=== PATIENT | female | born 1975 | race Caucasian/White ===

== ENCOUNTER → 2024-06-26 07:30 | Outpatient (REF) | payer MEDICAID, SELFPAY ==
[2024-06-26 09:07] LABS: Absolute Neutrophil Count 5.4 X10^3/uL (2.0-7.7); Basophil# 0.05 X10^3/uL; Basophil% 0.7 % (0-1); Eosinophils% 4.1 % (0-5); Hematocrit 41.3 % (37-47); Hemoglobin 11.9 g/dL (12.0-15.0); Lymphocyte % 9.5 % (19-41); Mean Corp Hgb Conc 28.8 g/dL (32-36); Mean Corpuscular Hgb 27.9 pg (27.0-32.0); Mean Corpuscular Volume 96.9 fL (81-99); Mean Platelet Vol. 11.6 fl (6.2-12.0); Monocyte# 0.82 X10^3/uL; Monocyte% 11.2 % (0-10); NRBC Flagged by Analyzer 0 % (0-5); Neutrophil % 73.7 % (47-70); POSITIVE MORPHOLOGY YES; Platelet Count 230 K/mm3 (150-450); RBC Distribution Width CV 20.2 % (11.6-14.6); RBC Distribution Width SD 71.2 fl (35.1-43.9); Red Blood Count 4.26 M/mm3 (4.2-5.4); White Blood Count 7.3 K/mm3 (4.4-11.0)
[2024-06-26 09:08] LABS: Differential Indicated SCAN CRITERIA MET
[2024-06-26 09:50] LABS: Anisocytosis 2+; Stomatocyte 1+
[2024-06-26 09:58] LABS: Anion Gap 4 (5-15); BUN 15 mg/dL (7-18); BUN/Creat Ratio 24.2 RATIO (10-20); Calcium,Total 8.9 mg/dL (8.5-10.1); Chloride 92 mmol/L (98-107); Creatinine, Serum 0.62 mg/dL (0.55-1.02); EST Glomerular Filtration Rate 108 mL/min (>60); Est Glom Filt Rate - Afr Amer 130 mL/min (>60); Glucose 105 mg/dL (74-106); Magnesium 2.3 mg/dL (1.6-2.6); Sodium Level 137 mmol/L (136-145)
[2024-06-26 11:10] LABS: Vitamin B12 399 pg/mL (211-911); Vitamin D,25 Hydroxy 10.1 ng/mL
== END ==
LOC: OLS.SW 07:30
PROVIDERS: Visit Provider Internal Medicine
DX: Z02.0 Encounter for examination for admission to educational institution (principal)
CPT/HCPCS: 36415; 80048; 82306; 82607; 83735; 84443; 85025

== ENCOUNTER 2024-07-02 12:34 | Inpatient (IN) | payer MEDICAID, SELFPAY ==
[2024-07-02] VITALS (17 sets, daily range): BP systolic 96–132; BP diastolic 57–88; PULSE 78–107; RESP 10–26; TEMP 36.4–37.2; O2SAT 40–100; BMI 85.8; BMI 80.2
--- NOTE | 2024-07-02 12:45 | EKG12_ITS ---
Test Reason : Blood Pressure : */* mmHG Vent. Rate : 105 BPM Atrial Rate : 105 BPM P-R Int : 150 ms QRS Dur : 96 ms QT Int : 366 ms P-R-T Axes : 49 35 37 degrees QTcB Int : 483 ms Sinus tachycardia Otherwise normal ECG No previous ECGs available Confirmed by James Larkin ([id number]), book editor RONI FLORES ([id number]) on 07/03/2024 10:45:36 AM Referred By: JANIS Confirmed By: James Larkin
--- NOTE | 2024-07-02 12:54 | EDS_ITS ---
HPI History of Present Illness Chief Complaint: Shortness of Breath Narrative Narrative: Patient is a 49-year-old female past medical history BMI of 85.9, generalized weakness in a rehab facility currently who presents to the emerged part with a chief complaint of hypoxia. According to paperwork from the facility she is on as needed oxygen 2 to 5 L as needed. Patient states that for the past 3 days she has had increased difficulty with breathing and not feeling well. Patient denies any sick contacts. According to the patient's family member at bedside she had a mask on yesterday and had difficulty understanding her. According to EMS when they arrived she was 40% therefore she was placed on nonrebreather. PFSH PFSH Home Medications ?Medication ?Instructions ?Recorded ?Last Taken ?Type acetaminophen 325 mg capsule 650 mg PO Q4H PRN fever 07/02/24 Unknown History acetaminophen 650 mg rectal 650 mg DE Q4H 07/02/24 Unknown History suppository albuterol sulfate 2.5 mg/3 mL 2.5 mg inhalation Q4H PRN 07/02/24 Unknown History (0.083 %) solution for nebulization shortness of breath or wheezing aluminum-magnesium hydroxide 200 30 ml PO Q4H PRN GI DISTRESS 07/02/24 Unknown History mg-200 mg/5 mL oral suspension (MAG-AL) bisacodyl 10 mg rectal suppository 10 mg DE DAILY PRN constipation 07/02/24 Unknown History dextromethorphan-guaifenesin 10 5 ml PO Q6H PRN cough 07/02/24 Unknown History mg-100 mg/5 mL oral liquid (Biocotron) guaifenesin 100 mg/5 mL oral 200 mg PO Q4H PRN congestion 07/02/24 Unknown History liquid (Adult Tussin Chest Congestion) miconazole nitrate 2 % topical 1 applic topical DAILY 07/02/24 Unknown History powder (Antifungal (miconazole)) sodium phosphates 19 gram-7 118 ml DE DAILY PRN constipation 07/02/24 Unknown History gram/118 mL enema (Enema) Allergy/AdvReac Type Severity Reaction Status Date / Time No Known Allergies Allergy Verified 07/02/24 12:35 Social History Smoking Status: Never smoker ROS ROS ED ROS Narrative Constitutional: Denies any fevers, chills, headaches malaise, dizziness Eyes: Denies change vision double vision blurry vision Cardiovascular: Denies chest pain or palpitations Respiratory: Complains of shortness of breath and difficulty breathing Abdomen: Denies abdominal pain, nausea, vomiting, diarrhea : Denies any urinary symptoms Neurological: Denies any numbness, wheeze, tingling Skin: Denies any rashes or lesions EXAM Physical Exam Narrative Exam Narrative: General: Patient was lying in bed rest comfortably did not appear to be acute distress Head: Atraumatic, normocephalic Eyes: PERRL body, EOMI bilateral no conjunctival injection noted Neck: Soft, supple, trachea midline Cardiovascular: Patient tachycardic with regular rhythm no murmurs gallops rubs noted Respiratory: Clear to auscultation bilaterally Abdomen: Soft, nontender to palpation Extremities: +4/5 strength noted in the bilateral upper and lower extremities Neurological: Patient following commands knew that she was at [facility] year is 2023 Skin: Warm, dry, intact, chronic skin changes noted in the bilateral lower extremities Const Vital Signs: 07/02/24 12:35 07/02/24 12:41 07/02/24 12:42 Temperature 97.6 F L 97.6 F L Temperature Source Axillary Axillary Pulse Rate 107 H 107 H Respiratory Rate 10 L 19 H Respiratory Effort Short of Breath Labored Respiratory Depth Shallow Respiratory Pattern Normal Blood Pressure 132/81 H 113/80 Blood Pressure Mean 98 91 Pulse Ox 100 91 Oxygen Delivery Method Non-Rebreather Nasal Cannula Room Air Oxygen Flow Rate (L/min) 3 07/02/24 12:45 07/02/24 13:35 07/02/24 13:41 Temperature 97.9 F Temperature Source Axillary Pulse Rate 96 95 Respiratory Rate 17 21 H Respiratory Effort Respiratory Depth Respiratory Pattern Blood Pressure 102/88 H 125/58 H Blood Pressure Mean 92 80 Pulse Ox 96 94 Oxygen Delivery Method Nasal Cannula Nasal Cannula Nasal Cannula Oxygen Flow Rate (L/min) 3 3 07/02/24 14:00 07/02/24 14:28 Temperature 97.9 F Temperature Source Pulse Rate 96 96 Respiratory Rate 18 18 Respiratory Effort Respiratory Depth Respiratory Pattern Blood Pressure 116/65 116/65 Blood Pressure Mean 82 82 Pulse Ox 93 93 Oxygen Delivery Method Nasal Cannula Oxygen Flow Rate (L/min) MDM MDM MDM Narrative Medical decision making narrative: Patient is a 49-year-old female who presented to the emergency department the chief complaint of shortness of breath for the past 3 days. Patient will have a workup performed here on the differential diagnose includes but not limited to ACS, pneumonia, CHF, upper respiratory infection secondary viral etiology. Once workup is obtained reviewed she will be reevaluated. Patient will be given a 30 cc/kg bolus of IV fluids based on ideal body weight as her BMI is greater than 30. Staff called over to the nursing facility and the patient was recently admitted to [facility] and sounds that she was admitted there for a CHF exacerbation where she received Lasix prior to going to the facility that she is currently at. The staff at the facility is unsure of why she was placed on as needed oxygen as she has no underlying lung issues. Patient CBC reviewed and was largely unremarkable no evidence leukocytosis white blood count normal at 8.4, hemoglobin was 12.1, platelet count was noted be normal at 229. Patient's INR was normal at 1.9, PT of 14.9, venous gas was reviewed which showed a venous pH of 7.57. Patient's sodium normal at 138, potassium of 4, creatinine normal at 0.59. Patient's AST and ALT were 22 and 26 respectively. Patient's proBNP elevated at 154.6. Patient urinalysis reviewed and showed 100 leukocyte esterase negative nitrates and the microscopic exam pending. Patient's chest x-ray reviewed by myself and by radiology which showed findings consistent with congestive heart failure. At this point time do believe the patient will warrant admission to the hospital for CHF she was given 40 mg of IV Lasix. Will hold off on further fluids at this point in time. Patient's case will be discussed with hospitalist. Discussed case with hospitalist Dr. Black who accept patient for admission. Patient notified as well as family bedside they are agreeable with this plan all question concerns answered. At this point in time at 1439 there is no identifiable source infection therefore no antibiotics indicated. Lab Data Labs: Laboratory Results - last 24 hr 07/02/24 07/02/24 13:05 14:09 WBC 8.4 RBC 4.30 Hgb 12.1 Hct 43.4 MCV 100.9 H MCH 28.1 MCHC 27.9 L RDW Std Deviation 74.0 H RDW Coeff of Michaelle 20.1 H Plt Count 229 MPV 10.9 Immature Gran % (Auto) 1.900 H Neut % (Auto) 82.5 H Lymph % (Auto) 5.6 L [place] % (Auto) 8.3 Eos % (Auto) 1.1 Baso % (Auto) 0.6 Absolute Neuts (auto) 7.0 Absolute Lymphs (auto) 0.47 L Nucleated RBC % 0 PT 14.9 INR 1.2 APTT 24.5 Sodium 138 Potassium 4.0 Chloride 85 L Carbon Dioxide > 45.0 H* Anion Gap TNP BUN 16 Creatinine 0.59 Estim Creat Clear Calc 235.32 Est GFR (MDRD) Af Amer 138 Est GFR (MDRD) Non-Af 114 BUN/Creatinine Ratio 27.1 H Glucose 121 H Lactic Acid 1.5 Calcium 9.6 Total Bilirubin 1.80 H AST 22 ALT 26 Alkaline Phosphatase 89 Troponin I High Sens 30 B-Natriuretic Peptide 154.6 H Total Protein 8.1 Albumin 2.9 L Globulin 5.2 H Albumin/Globulin Ratio 0.6 L Urine Color Straw Urine Clarity Sl. Cloudy Urine pH 8.0 Ur Specific [place] 1.015 Urine Protein Negative Urine Glucose (UA) Normal Urine Ketones Negative Urine Occult Blood 10 H Urine Nitrite Negative Urine Bilirubin Negative Urine Urobilinogen 8 H Ur Leukocyte Esterase 100 H ABG Data ABG results: ABG 07/02/24 13:15 Specimen Type SHANNON Sample Site Not entered VBG pH 7.57 H VBG pO2 55 H VBG HCO3 58 H VBG O2 Sat (Calc) 91 H VBG Base Excess > 30 H POC Mix VBG pCO2 Pt Tmp 63.6 H O2 Delivery Device Cannula Radiography Diagnostic Testing: Clinical Impression(s) from Imaging Studies Chest X-Ray 07/02/24 13:45 IMPRESSION: Vascular congestion and CHF. Cardiomegaly. Electronically Signed: Chevy Platt MD at 14:13 EST , Discharge Plan Triage Chief Complaint: Shortness of Breath ED Provider: Jeison Marsh Dx/Rx/DC Orders Clinical Impression: Acute on chronic respiratory failure with hypoxemia, CHF (congestive heart failure) Prescriptions: No Action acetaminophen 650 mg suppository 650 mg DE Q4H acetaminophen 325 mg capsule 650 mg PO Q4H PRN (Reason: fever) albuterol sulfate 2.5 mg /3 mL (0.083 %) solution for nebulization 2.5 mg inhalation Q4H PRN (Reason: shortness of breath or wheezing) MAG-AL 200-200 mg/5 mL suspension 30 ml PO Q4H PRN (Reason: GI DISTRESS) bisacodyl 10 mg suppository 10 mg DE DAILY PRN (Reason: constipation) dextromethorphan-guaifenesin [Biocotron] 10-100 mg/5 mL liquid 5 ml PO Q6H PRN (Reason: cough) Enema 19-7 gram/118 mL enema 118 ml DE DAILY PRN (Reason: constipation) Rx Instructions: IF BISACODYL INEFFECTIVE guaifenesin [Adult Tussin Chest Congestion] 100 mg/5 mL liquid 200 mg PO Q4H PRN (Reason: congestion) miconazole nitrate [Antifungal (miconazole)] 2 % powder 1 applic topical DAILY Primary Care Provider: Charu Carpenter Referrals: Charu Carpenter MD [Primary Care Provider] - Print Language: Swedish
[2024-07-02 13:17] LABS: Absolute Lymphocyte Count 0.47 X10^3/uL (0.83-4.51); Basophil# 0.05 X10^3/uL; Basophil% 0.6 % (0-1); Eosinophil# 0.09 X10^3/uL; Eosinophils% 1.1 % (0-5); Hematocrit 43.4 % (37-47); Hemoglobin 12.1 g/dL (12.0-15.0); Lymphocyte # 0.47 X10^3/ul (0.83-4.51); Lymphocyte % 5.6 % (19-41); Mean Corp Hgb Conc 27.9 g/dL (32-36); Mean Corpuscular Hgb 28.1 pg (27.0-32.0); Mean Corpuscular Volume 100.9 fL (81-99); Mean Platelet Vol. 10.9 fl (6.2-12.0); Monocyte% 8.3 % (0-10); NRBC Flagged by Analyzer 0 % (0-5); Neutrophil # 6.96 X10^3/uL (2.7-7.7); Neutrophil % 82.5 % (47-70); POSITIVE DIFFERENTIAL YES; POSITIVE MORPHOLOGY YES; Platelet Count 229 K/mm3 (150-450); RBC Distribution Width CV 20.1 % (11.6-14.6); White Blood Count 8.4 K/mm3 (4.4-11.0)
[2024-07-02 13:19] LABS: Differential Indicated SCAN CRITERIA MET
[2024-07-02 13:20] LABS: Blood Gas Specimen Type VEN; O2 Delivery Device Cannula; SITE Not entered; VBG BASE EXCESS > 30 mmol/L (-1.0-3.5); VBG Bicarbonate 58 mmol/L (22-26); VBG PO2 55 mmHg (25-40); VBG SO2 91 % (50-70); VBG pCO2 63.6 mmHg (41-51); VBG pH 7.57 (7.32-7.42)
[2024-07-02 13:29] LABS: International Normalized Ratio 1.2; Prothrombin Time (Protime)PT. 14.9 SECONDS (11.7-14.9)
[2024-07-02 13:30] LABS: Partial Thromboplast Time 24.5 Seconds (24.1-36.2)
[2024-07-02] MEDS: 0.9% Normal Saline (1000mL) 1,000 ML 999 ML IV (13:35)
[2024-07-02 13:37] LABS: BNP,B-Type NATRIURETIC PEPTIDE 154.6 pg/mL (0-100)
--- NOTE | 2024-07-02 13:45 | RAD_ITS ---
STUDY: X-RAY CHEST REASON FOR EXAM: Female, 49 years old. Cough, hypoxia TECHNIQUE: AP and lateral views of the chest. COMPARISON: None. FINDINGS: EKG electrodes are seen. Vascular congestion and CHF. There is no demonstrated pleural abnormality. There is mild cardiac enlargement. Normal mediastinum and berny. Normal visualized pulmonary arteries. Normal visualized aortic arch and descending thoracic aorta. Normal visualized thoracic spine. Normal visualized ribs, clavicles, and shoulders. There is no demonstrated abnormality of the visualized soft tissue structures of the upper abdomen. RAD/Chest PA and Lateral IMPRESSION: Vascular congestion and CHF. Cardiomegaly. Electronically Signed: Chevy Platt MD at 14:13 EST ,
[2024-07-02 13:46] LABS: ALB/GLOB Ratio 0.6 RATIO (0.9-2.4); AST(SGOT) 22 U/L (15-37); Alanine Aminotransfer ALT/SGPT 26 U/L (13-56); Albumin, Serum 2.9 g/dL (3.2-5.0); Alkaline Phosphatase 89 U/L (45-117); BUN 16 mg/dL (7-18); BUN/Creat Ratio 27.1 RATIO (10-20); Calcium,Total 9.6 mg/dL (8.5-10.1); Carbon Dioxide > 45.0 mmol/L (21.0-32.0); Chloride 85 mmol/L (98-107); Creatinine, Serum 0.59 mg/dL (0.55-1.02); EST Glomerular Filtration Rate 114 mL/min (>60); Est Glom Filt Rate - Afr Amer 138 mL/min (>60); Estimated Creatinine Clearance 235.32 ml/min; Globulin 5.2 g/dL (2.2-4.2); Glucose 121 mg/dL (74-106); Protein, Total 8.1 g/dL (6.4-8.2); Sodium Level 138 mmol/L (136-145); Troponin-I HS 30 pg/mL (3.0-54.0)
[2024-07-02 13:47] LABS: Lactic Acid 1.5 mmol/L (0.4-1.9)
[2024-07-02 14:21] LABS: Mucous, Urine 0 SEEN /hpf (<or=2+)
[2024-07-02 14:27] LABS: Color, Urine Straw (Yellow); Glucose, Dipstick Normal (Normal); Ketone-Dipstick Negative (Negative); Leukocyte Esterase-Dipstick 100 /ul (Negative); Nitrite-Dipstick Negative (Negative); Occult Blood-Urine 10 /ul (Negative); Protein-Dipstick Negative (Negative); Specific Gravity, Urine 1.015 (1.002-1.030); Urine Bilirubin Dipstick Negative (Negative); Urine Clarity Sl. Cloudy (Clear); Urine Urobilinogen 8 mg/dl (Normal)
[2024-07-02 14:37] LABS: Bacteria 2+ /hpf (None Seen); Red Blood Cells-Urine 0-5 SEEN /hpf (0-5)
[2024-07-02 14:38] LABS: White Blood Cells 10-25 SEEN /hpf (0-5)
[2024-07-02 14:39] LABS: Squamous Epithelial Cells - UA 0 SEEN /hpf (5-10)
[2024-07-02] MEDS: Furosemide 40 MG/4 ML Vial IV (14:42)
--- NOTE | 2024-07-02 15:18 | ED.RN ---
respiratory called for ABG and BIPAP to be completed on pt.
--- NOTE | 2024-07-02 15:20 | HP.PCM.HOS_ITS ---
HPI - General General Date of Admission: 07/02/24 Date of Service: 07/02/24 Chief Complaint: Hypoxia HPI Narrative MARIOLA KIRAN, is a 49 F with a recent left knee injury admitted to [facility] and subsequently transferred to [facility] for 3 days presented [facility] 07/02/2024 with increasing shortness of breath and hypoxia. Reportedly at some point there was a oxygen saturation of 40% and patient was placed on nasal cannula and a nonrebreather. In the ED she was placed on 3 L saturating the low 90s. Chest x-ray concerning for CHF and BNP 854 which is likely falsely low given her elevated BMI. Patient was given IV Lasix and hospitalist contacted for admission. Patient evaluated bedside, patient herself reports she has been a little bit confused and is unable to tell me if she has sleep apnea or if she wears CPAP and mask but did say before she went to [facility] she had no medical problems and then when she was there she was placed on water pills and sent to [facility]. She does feel that her lower extremities are more edematous than they were when she was discharged from [facility] and does note the increased shortness of breath, possibly some cough but patient had a difficult time quantifying this. No chest pain, no fevers or chills, has been somewhat constipated. Reports she feels like people are acting like she is crazy especially at night and she is unhappy with where she is currently located. [facility] Home Medications ?Medication ?Instructions ?Recorded ?Last Taken ?Type acetaminophen 325 mg capsule 650 mg PO Q4H PRN fever 07/02/24 Unknown History acetaminophen 650 mg rectal 650 mg MT Q4H 07/02/24 Unknown History suppository albuterol sulfate 2.5 mg/3 mL 2.5 mg inhalation Q4H PRN 07/02/24 07/01/24 History (0.083 %) solution for nebulization shortness of breath or wheezing aluminum-magnesium hydroxide 200 30 ml PO Q4H PRN GI DISTRESS 07/02/24 07/01/24 History mg-200 mg/5 mL oral suspension (MAG-AL) ascorbic acid (vitamin C) 500 mg 500 mg PO DAILY 07/02/24 07/02/24 History capsule bisacodyl 10 mg rectal suppository 10 mg MT DAILY PRN constipation 07/02/24 Unknown History dextromethorphan-guaifenesin 10 5 ml PO Q6H PRN cough 07/02/24 Unknown History mg-100 mg/5 mL oral liquid (Biocotron) ergocalciferol (vitamin D2) 1,250 1,250 mcg PO QWEEK 07/02/24 Unknown History mcg (50,000 unit) capsule (Vitamin D2) guaifenesin 100 mg/5 mL oral 200 mg PO Q4H PRN congestion 07/02/24 Unknown History liquid (Adult Tussin Chest Congestion) hydroxyzine HCl 25 mg tablet 25 mg PO TID PRN RESTLESSNESS 07/02/24 07/01/24 History miconazole nitrate 2 % topical 1 applic topical DAILY 07/02/24 Unknown History powder (Antifungal (miconazole)) multivit,stress formula-zinc 1 tab PO DAILY 07/02/24 07/02/24 History tablet (Stress B With Zinc tablet) multivitamin (Daily Multi-Vitamin 1 tab PO DAILY 07/02/24 07/02/24 History tablet) ondansetron 4 mg disintegrating 4 mg PO Q8H PRN nausea and vomiting 07/02/24 Unknown History tablet polyethylene glycol 3350 17 17 g PO DAILY PRN constipation 07/02/24 07/01/24 History gram/dose oral powder (ClearLax) sodium phosphates 19 gram-7 118 ml MT DAILY PRN constipation 07/02/24 Unknown History gram/118 mL enema (Enema) spironolactone 25 mg tablet 25 mg PO DAILY 07/02/24 07/02/24 History torsemide 20 mg tablet 20 mg PO BID 07/02/24 07/02/24 History Allergy/AdvReac Type Severity Reaction Status Date / Time No Known Allergies Allergy Verified 07/02/24 12:35 Social History Smoking Status: Never smoker ROS ROS Narrative General: Denies fever/chills HENT: Denies stuffy nose or sore throat EYES: Denies changes in vision Resp: Possibly occasional cough, increasing shortness of breath Cardiac: Denies chest pain GI: Denies abdominal pain, reports being constipated, denies nausea/vomiting : Denies changes in urination Extremity: Thinks her lower extremities are more swollen than usual MSK: Some generalized weakness Neuro: Denies any numbness/tingling Heme: Denies any bleeding or bruising Skin: Denies rashes Psychiatric: No complaints voiced Vital Signs Vital Signs Vital Signs: 07/02/24 12:35 07/02/24 12:41 07/02/24 12:42 Temperature 97.6 F L 97.6 F L Temperature Source Axillary Axillary Pulse Rate 107 H 107 H Respiratory Rate 10 L 19 H Respiratory Effort Short of Breath Labored Respiratory Depth Shallow Respiratory Pattern Normal Blood Pressure 132/81 H 113/80 Blood Pressure Mean 98 91 Pulse Ox 100 91 Oxygen Delivery Method Non-Rebreather Nasal Cannula Room Air Oxygen Flow Rate (L/min) 3 07/02/24 12:45 07/02/24 13:35 07/02/24 13:41 Temperature 97.9 F Temperature Source Axillary Pulse Rate 96 95 Respiratory Rate 17 21 H Respiratory Effort Respiratory Depth Respiratory Pattern Blood Pressure 102/88 H 125/58 H Blood Pressure Mean 92 80 Pulse Ox 96 94 Oxygen Delivery Method Nasal Cannula Nasal Cannula Nasal Cannula Oxygen Flow Rate (L/min) 3 3 07/02/24 14:00 07/02/24 14:28 07/02/24 15:00 Temperature 97.9 F 98.9 F Temperature Source Oral Pulse Rate 96 96 94 Respiratory Rate 18 18 26 H Respiratory Effort Respiratory Depth Respiratory Pattern Blood Pressure 116/65 116/65 117/71 Blood Pressure Mean 82 82 86 Pulse Ox 93 93 92 Oxygen Delivery Method Nasal Cannula CPAP Oxygen Flow Rate (L/min) Weight Weight: 241.4 kg Body Mass Index (BMI) 85.8 Physical Exam Narrative General: Alert, able to answer many questions appropriately however intermittently will give inconsistent history and remarks she herself thinks she is somewhat confused HEENT: Atraumatic, normocephalic Eyes: Anicteric, normal conjunctiva, extraocular movements grossly intact Neck: Supple Respiratory: Increased respiratory effort and diminished bilaterally Cardiovascular: Regular rate and rhythm GI: Soft, nontender, nondistended Extremities: Significant lower extremity edema but unclear if this is chronic or acute on chronic Musculoskeletal: Moving all extremities Neuro: No overt focal neurological deficits Skin: No rashes appreciated Psych: Cooperative Results Lab / Micro Data 07/02/24 13:05 07/02/24 13:05 Labs: Laboratory Results - last 24 hr 07/02/24 13:05: WBC 8.4, RBC 4.30, Hgb 12.1, Hct 43.4, MCV 100.9 H, MCH 28.1, M CHC 27.9 L, RDW Std Deviation 74.0 H, RDW Coeff of Michaelle 20.1 H, Plt Count 229, MPV 10.9, Immature Gran % (Auto) 1.900 H, Neut % (Auto) 82.5 H, Lymph % (Auto) 5.6 L, [place] % (Auto) 8.3, Eos % (Auto) 1.1, Baso % (Auto) 0.6, Absolute Neuts (auto) 7.0, Absolute Lymphs (auto) 0.47 L, Nucleated RBC % 0, PT 14.9, INR 1.2, APTT 24.5, Sodium 138, Potassium 4.0, Chloride 85 L, Carbon Dioxide > 45.0 H*, Anion Gap TNP, BUN 16, Creatinine 0.59, Estim Creat Clear Calc 235.32, Est GFR (MDRD) Af Amer 138, Est GFR (MDRD) Non-Af 114, BUN/Creatinine Ratio 27.1 H, G lucose 121 H, Lactic Acid 1.5, Calcium 9.6, Total Bilirubin 1.80 H, AST 22, ALT 26, Alkaline Phosphatase 89, Troponin I High Sens 30, B-Natriuretic Peptide 154.6 H, Total Protein 8.1, Albumin 2.9 L, Globulin 5.2 H, Albumin/Globulin Ratio 0.6 L 07/02/24 14:09: Urine Color Straw, Urine Clarity Sl. Cloudy, Urine pH 8.0, Ur Specific [place] 1.015, Urine Protein Negative, Urine Glucose (UA) Normal, Urine Ketones Negative, Urine Occult Blood 10 H, Urine Nitrite Negative, Urine Bilirubin Negative, Urine Urobilinogen 8 H, Ur Leukocyte Esterase 100 H, Urine RBC 0-5 SEEN, Urine WBC 10-25 SEEN, Ur Squamous Epith Cells 0 SEEN, Urine Bacteria 2+, Urine Mucus 0 SEEN Micro: Microbiology 07/02/24 13:01 Mucosa - Nose SARS-CoV-2, Influenza & RSV (PCR) - Final ABG Data ABG results: ABG 07/02/24 13:15 Specimen Type SHANNON Sample Site Not entered VBG pH 7.57 H VBG pO2 55 H VBG HCO3 58 H VBG O2 Sat (Calc) 91 H VBG Base Excess > 30 H POC Mix VBG pCO2 Pt Tmp 63.6 H O2 Delivery Device Cannula Imaging Radiology Impression Chest X-Ray 07/02/24 13:45 IMPRESSION: Vascular congestion and CHF. Cardiomegaly. Electronically Signed: Chevy Platt MD at 14:13 EST , Assessment & Plan Assessment/Plan (1) Hypoxia: PLAN: Plan # Hypoxia suspect secondary to a CHF -Admit to telemetry -BNP 154, suspect that this is falsely low given patient's BMI -CXR appears congested -Continue IV lasix -No echo available in our system so echo ordered, patient had been placed on diuretics when she was at [facility] but she is unclear exactly why -Daily weights, I's and O's -Fluid restriction, heart healthy diet -Will check respiratory panel as well in the event that there is an additional contributor to current presentation -Will also place patient on BiPAP due to work of breathing, or hypoxia, and suspect there might be a component of hypercapnia currently as well, patient was agreeable in the ED # Acute metabolic encephalopathy -Patient sometimes giving inconsistent history and she herself feels that she is somewhat confused -UA with leuk esterase, white cells, and bacteria -Will obtain urine culture and treat empirically while awaiting culture given patient is fairly poor historian and is somewhat confused -Will obtain ABG, suspect hypoxia and possibly even hypercapnia could be contributing # Possible UTI -UA with leuk esterase, white cells, and bacteria -Will obtain urine culture and treat empirically while awaiting culture given patient is fairly poor historian and is somewhat confused #Morbid obesity -BMI documented as 85.9 kg/m? at time of admission -Complicates treatment, prognosis, outcomes -Recommend weight loss and lifestyle changes #DVT ppx: Lovenox subcu Soraida Black MD Charges/Coding Visit Charges Inpatient E&M: 15363 Init Hosp L2
[2024-07-02] MEDS: Ceftriaxone 1 GM/50 ML BAG IV (15:25)
[2024-07-02 16:40] LABS: Allen Test Positive; Base Excess 27 mmol/L (-2 to +2); Bicarbonate 51.6 mmol/L (22-26); Blood Gas Specimen Type ART; Mode Not entered; O2 Delivery Device Cannula; PO2 71 mmHG (75-100); SITE R Radial; SO2 92 % (95-99); Total Carbon Dioxide > 50 mmol/L; pCO2 87.2 mmHg (35-45); pH 7.38 (7.35-7.45)
--- NOTE | 2024-07-02 17:15 | CM.ED ---
Social Work Reason for consult: concern with placement Patient is currently living at [facility] after being transferred from [facility] two days ago.? Patient stated she was not ?comfy? with her current SNF placement.? When SW asked her to explain, patient states she didn?t really know, she just wasn?t enjoying being there.? SW asked if there were any concerns she could voice, patient stated there were not and that she probably wasn?t giving it a chance. Patient did state they have moved her to a different room, and she has a roommate she hasn't met yet. Patient stated concern that her roommate is old. ? SW did let patient know that if she continued to be unhappy with placement once she returned, that she had the right to request a transfer to a new location.? Patient also stated she felt that her anxiety was increased due to her recent medical issues and her temporary move to a SNF.? SW provided supportive listening and provided education that SNF social workers would be able to assist patient in setting up counseling and/or psychiatry services. ??Patient voiced understanding of same. Criselda Maciel, ORAL HEALTH THERAPIST, FINISHER DENTURE
--- NOTE | 2024-07-02 17:47 | ED.RN ---
PCU CALLED FOR BARIATRIC BED AT THIS TIME. I WAS INFORMED THERE WERE NONE AVAILABLE ON THE PCU AND THE MED-SURG BARIATRIC BED IS ALSO [id number].
--- NOTE | 2024-07-02 18:14 | ECHOD_ITS ---
Reason For Study: CHF Procedure This was a 2D Doppler, Color Flow transthoracic echocardiogram. The study was technically difficult. No IV access for definity or bubble. Exam performed portable in patient room. Left Ventricle Normal LV size. Moderate concentric left ventricular hypertrophy. Left ventricular systolic function is normal. The left ventricular ejection fraction is 60 %. Stage 1 diastolic dysfunction. No regional wall motion abnormalities noted. Right Ventricle Normal right ventricle. Tricuspid Valve Normal tricuspid valve. Mild (1+) tricuspid valve insufficiency. Pulmonary artery systolic pressure is 39 mmHg. Great Vessels Normal aortic root. Pericardium/Pleural No pericardial effusion. MMode/2D Measurements & Calculations LVIDd: 5.3 cm IVSd: 1.6 cm Ao root diam: 3.9 cm LVIDs: 3.5 cm LVPWd: 1.6 cm FS: 34.3 % LAV(MOD-sp4): 64.5 ml LA dimension(2D): 4.6 cm LA A4 area: 21.3 cm2 RA A4 area: 26.4 cm2 Time Measurements MV dec time: 0.15 sec Doppler Measurements & Calculations MV E max farrukh: 87.8 cm/sec Lat Peak E' Farrukh: 13.1 cm/sec Med Peak E' Farrukh: 11.1 cm/sec MV A max farrukh: 98.3 cm/sec E/E' lat: 6.7 E/E' med: 7.9 MV E/A: 0.89 MV V2 max: 117.9 cm/sec MV dec slope: 596.2 cm/sec2 Ao V2 max: 146.2 cm/sec MV max P.6 mmHg Ao max P.5 mmHg MV V2 mean: 86.7 cm/sec Ao V2 mean: 100.3 cm/sec MV mean P.3 mmHg Ao mean P.6 mmHg MV V2 VTI: 28.9 cm Ao V2 VTI: 30.9 cm AV (velocity ratio): 0.95 LV V1 max: 126.5 cm/sec PA V2 max: 147.6 cm/sec TR max farrukh: 292.4 cm/sec LV V1 max P.4 mmHg PA V2 mean: 107.3 cm/sec TR max P.2 mmHg LV V1 mean P.7 mmHg LV V1 mean: 86.3 cm/sec LV V1 VTI: 29.4 cm ECHO/Echo Complete Interpretation Summary Normal LV size. Left ventricular systolic function is normal. The left ventricular ejection fraction is 60 %. Moderate concentric left ventricular hypertrophy. Stage 1 diastolic dysfunction. Ordering Physician: Soraida Black Referring Physician: ZEE ALVARADO Performed By: Caryl Kumar RCS
[2024-07-02] MEDS: Senna/Docusate Sodium 1 Tablet 2 TABLET PO (22:07)
[2024-07-02] MEDS: Enoxaparin 40 MG/0.4 ML Syringe SC (22:07)
[2024-07-03] VITALS (14 sets, daily range): BP systolic 104–124; BP diastolic 56–77; PULSE 87–95; RESP 14–26; TEMP 36.2–36.9; O2SAT 91–95; BMI 80.2
--- NOTE | 2024-07-03 02:47 | CPS ---
Pt took off bipap and forgot where she was temporarily, did not use call light. Pt was scared and anxious.
[2024-07-03 08:11] LABS: Absolute Lymphocyte Count 0.93 X10^3/uL (0.83-4.51); Absolute Neutrophil Count 5.6 X10^3/uL (2.0-7.7); Basophil# 0.08 X10^3/uL; Eosinophil# 0.22 X10^3/uL; Eosinophils% 2.8 % (0-5); Hematocrit 40.4 % (37-47); Hemoglobin 11.6 g/dL (12.0-15.0); Lymphocyte # 0.93 X10^3/ul (0.83-4.51); Lymphocyte % 11.9 % (19-41); Mean Corp Hgb Conc 28.7 g/dL (32-36); Mean Corpuscular Hgb 28.4 pg (27.0-32.0); Monocyte# 0.86 X10^3/uL; NRBC Flagged by Analyzer 0.3 % (0-5); Neutrophil # 5.61 X10^3/uL (2.7-7.7); Neutrophil % 72.1 % (47-70); POSITIVE MORPHOLOGY YES; Platelet Count 236 K/mm3 (150-450); RBC Distribution Width CV 20.6 % (11.6-14.6); RBC Distribution Width SD 73.3 fl (35.1-43.9); Red Blood Count 4.08 M/mm3 (4.2-5.4); White Blood Count 7.8 K/mm3 (4.4-11.0)
[2024-07-03 08:14] LABS: Differential Indicated SCAN CRITERIA MET
[2024-07-03 08:48] LABS: Anisocytosis 2+
[2024-07-03 08:57] LABS: BUN 16 mg/dL (7-18); BUN/Creat Ratio 30.7 RATIO (10-20); Calcium,Total 9.6 mg/dL (8.5-10.1); Carbon Dioxide > 45.0 mmol/L (21.0-32.0); Chloride 84 mmol/L (98-107); Cholesterol 109 mg/dL (200); Creatinine, Serum 0.52 mg/dL (0.55-1.02); EST Glomerular Filtration Rate 132 mL/min (>60); Est Glom Filt Rate - Afr Amer 159 mL/min (>60); Estimated Creatinine Clearance 254.23 ml/min; Glucose 100 mg/dL (74-106); High Density Lipoprotein 46 mg/dL; Potassium 3.7 mmol/L (3.5-5.1); Sodium Level 139 mmol/L (136-145); Triglycerides 52 mg/dL; Very Low Density Lipoprotein 10 mg/dL (5-40)
[2024-07-03] MEDS: Ceftriaxone 1 GM/50 ML BAG IV (11:07)
[2024-07-03] MEDS: Enoxaparin 40 MG/0.4 ML Syringe SC ×2 (11:08→20:34)
[2024-07-03] MEDS: Senna/Docusate Sodium 1 Tablet 2 TABLET PO ×2 (11:08→20:29)
[2024-07-03] MEDS: Furosemide 40 MG/4 ML Vial IV (11:14)
--- NOTE | 2024-07-03 14:27 | CASEMGMT ---
Addendum entered by Sarah Vargas 07/03/24 14:33: New precert will not be needed. Requested unit phone/fax. Original Note: Discharge Planning Updates sent to [facility]. Asked if new precert will be needed. Sarah Vargas DC Planning Asst.
--- NOTE | 2024-07-03 15:01 | CASEMGMT ---
SW met with patient. Introduced self and role at [facility]. SW asked patient if she was going to give [facility] another try. Patient said there is too much going on right now for her to make any decisions. Patient did express she was interested in [facility]. Patient did not want a referral sent to [facility] yet. SW will have to check back with patient. Plan: If patient is agreeable to returning to [facility] she can go over the weekend. If patient is not agreeable to return to [facility] she will have to stay at [facility] until new referrals can be made. Aissatou [employer]
[2024-07-03 15:06] LABS: D-Dimer Quantitative (DVT/PE) 1.84 FEU/ug/m (0.27-0.49)
--- NOTE | 2024-07-03 15:28 | VDLE_ITS ---
Reason For Study: Elevated d-dimer RIGHT LEFT GSV is normal. GSV is normal. CFV is compressible, spontaneous, phasic, CFV is compressible, spontaneous, phasic, competent and demonstrates normal competent, and demonstrates normal augmentation. augmentation. FV is compressible, spontaneous, phasic, FV is compressible, spontaneous, phasic, competent and demonstrates normal competent and demonstrates normal augmentation. augmentation. POP V is compressible, spontaneous, phasic, POP V is compressible, spontaneous, phasic, competent and demonstrates normal competent and demonstrates normal augmentation. augmentation. T/P Trunk is compressible. T/P Trunk is compressible. PTV is compressible. PTV is compressible. FV distal visualized with color only, appears FV distal visualized with color only, appears patent. patent. PeroV not visualized. PeroV not visualized. Procedure This is a venous duplex using B-mode, color flow and spectral Doppler. Exam performed portable in patient room. Technically difficult due to patient body habitus and edema. A preliminary report was called and/or faxed to Dr. Zafar. VL/Venous Duplex US - Mich Extrem Interpretation Summary Deep veins of the lower extremities are bilaterally patent and compressible seg mentally. There is no evidence of deep vein thrombosis on either side. Valvular competence appears in tact within the proximal deep venous systems bilaterally. The great saphenous veins appear bila terally patent and compressible segmentally. The peroneal veins were not visualized on either side . Ordering Physician: Eliot Zafar Referring Physician: Charu Carpenter Performed By: Maylin Doherty RVT
[2024-07-03] MEDS: Potassium Chloride Oral Tablet 20 MEQ PO (17:54)
--- NOTE | 2024-07-03 18:51 | PCM.PN.HOSP ---
Reason for Visit Reason for Visit: Diagnoses Hypoxemia (07/02/24) Subjective Subjective Patient was seen and examined today, patient is a poor informant, she does not understand why she was in the hospital at [place], I obtained copies of her medical record from [place] it appears that they felt she was in congestive heart failure. I ordered a D-dimer today which was elevated, patient's girth is such that she is not able to fit on a CT table for CTA, I performed a venous duplex scan her lower extremities which did not show evidence of a clot. I think at this time, patient has diastolic congestive heart failure. Patient's echocardiogram showed an EF of 60% with pulmonary artery systolic pressure of 39. Patient is currently on high flow nasal cannula oxygen. I discussed the case briefly with pulmonary medicine by phone, I have elected to place the patient on BiPAP tonight due to the fact I am worried that she may have undiagnosed sleep apnea. Her blood gas obtained yesterday shows an increased pCO2 with no acidosis. Objective Data Objective Data Vital Signs: Vital Signs Temp Pulse Resp BP Pulse Ox O2 Del Method O2 Flow Rate 98.5 F 92 18 108/58 L 94 High Flow 6 07/03/24 18:00 07/03/24 18:00 07/03/24 18:00 07/03/24 18:00 07/03/24 18:00 07/03/24 18:00 07/03/24 18:00 FiO2 40 07/03/24 02:47 Oxygen Flow Rate (L/min) 6 Oxygen Delivery Method High Flow Weight: 225.6 kg Body Mass Index (BMI) 80.2 Intake & Output: Intake and Output for Last 24 Hours 07/01/24 07/02/24 07/03/24 23:59 23:59 23:59 Intake Total 600 / 600 500 / 500 Output Total 3400 / 3400 2650 / 2650 Balance -2800 / -2800 -2150 / -2150 Lab / Micro Data 07/03/24 07:31 07/04/24 05:33 Labs: Laboratory Results - last 24 hr 07/03/24 07:31: WBC 7.8, RBC 4.08 L, Hgb 11.6 L, Hct 40.4, MCV 99.0, MCH 28.4, MCHC 28.7 L, RDW Std Deviation 73.3 H, RDW Coeff of Michaelle 20.6 H, Plt Count 236, MPV 12.0, Immature Gran % (Auto) 1.200 H, Neut % (Auto) 72.1 H, Lymph % (Auto) 11.9 L, Stearns % (Auto) 11.0 H, Eos % (Auto) 2.8, Baso % (Auto) 1.0, Absolute Neuts (auto) 5.6, Absolute Lymphs (auto) 0.93, Nucleated RBC % 0.3, Anisocytosis 2+, Sodium 139, Potassium 3.7, Chloride 84 L, Carbon Dioxide > 45.0 H*, Anion Gap TNP, BUN 16, Creatinine 0.52 L, Estim Creat Clear Calc 254.23, Est GFR (MDRD) Af Amer 159, Est GFR (MDRD) Non-Af 132, BUN/Creatinine Ratio 30.7 H, Glucose 100, Calcium 9.6, Triglycerides 52, Cholesterol 109, LDL Cholesterol 53, VLDL Cholesterol 10, HDL Cholesterol 46, TSH 2.750 07/03/24 14:43: D-Dimer Quant (PE/DVT) 1.84 H* Micro: Microbiology 07/02/24 14:09 Urine, Clean Catch Urine Culture - Preliminary Presumptive E. coli 07/02/24 22:00 Mucosa - Nasopharyngeal Respiratory Panel (PCR) - Final 07/02/24 13:01 Mucosa - Nose SARS-CoV-2, Influenza & RSV (PCR) - Final Radiography Diagnostic Testing: Radiology Impression Echocardiogram 07/02/24 18:14 Interpretation Summary Normal LV size. Left ventricular systolic function is normal. The left ventricular ejection fraction is 60 %. Moderate concentric left ventricular hypertrophy. Stage 1 diastolic dysfunction. Ordering Physician: Soraida Black Referring Physician: ZEE ALVARADO Performed By: Caryl Kumar RCS Venous Doppler Study 07/03/24 15:28 Interpretation Summary Deep veins of the lower extremities are bilaterally patent and compressible segmentally. There is no evidence of deep vein thrombosis on either side. Valvular competence appears intact within the proximal deep venous systems bilaterally. The great saphenous veins appear bilaterally patent and compressible segmentally. The peroneal veins were not visualized on either side. Ordering Physician: Eliot Zafar Referring Physician: Charu Carpenter Performed By: Maylin Doherty RVT Physical Exam Const alert, oriented x3 and no apparent distress Constitutional Narrative: Patient has class III obesity General Appearance: cooperative, well kempt and well developed Orientation / Consciousness: awake, oriented to person, oriented to place and oriented to time HEENT normocephalic, head/scalp atraumatic and moist oral mucous membranes Eyes PERRL, EOMs intact bilaterally and conjunctivae normal Neck supple, no JVD, thyroid normal and no carotid bruits General: trachea midline Resp normal respiratory effort, no retractions, no use of accessory muscles and clear to auscultation bilaterally Auscultation: Negative for rales, rhonchi or wheezes Cardio regular rate, regular rhythm, S1 normal heart sound, S2 normal heart sound, no murmurs, no rub and no gallops GI normal to inspection, nondistended, normoactive bowel sounds, soft to palpation, non-tender and non-distended Extremity no clubbing, cyanosis or edema Skin no rashes or lesions noted General Skin Exam: no breakdown Neuro oriented x3, CN's II-XII intact bilaterally, no focal motor deficits and no sensory deficits noted Sensorium / Orientation: awake and alert Speech: speech normal Psych affect normal Assessment & Plan Assessment/Plan (1) Acute on chronic respiratory failure with hypoxemia: PLAN: Plan 1. Acute on chronic combined respiratory failure-pulse ox will be monitored, patient will be placed on BiPAP at night due to suspected sleep apnea #2 acute on chronic diastolic congestive heart failure-patient was placed on programmed IV Lasix, labs will be monitored #3 class III obesity-complicates care, management, recovery, and prognosis Total clinical time spent by myself addressing patient's medical issues, reviewing all of her data, and collaborating with patient's care team: 50 minutes Charges/Coding Visit Charges Inpatient E&M: 40023 Subs Hosp L3
[2024-07-03] MEDS: Furosemide 20 MG/2 ML VIAL IV (21:05)
[2024-07-03] MEDS: 0.9% Saline Lock 10 ML Syringe IV (21:10)
[2024-07-04] VITALS (13 sets, daily range): BP systolic 109–137; BP diastolic 62–69; PULSE 80–96; RESP 14–22; TEMP 36.2–36.7; O2SAT 4–98; BMI 80.6
--- NOTE | 2024-07-04 04:26 | NURSING ---
PT WORE HER BIPAP FROM [id number], 10/03,40%. PT NOTED TO HAVE EPISODES OF HYPOXIA WHERE SHE DE SATTED DOWN TO 70% WHILE IN A DEEP SLEEP WITH BIPAP INTACT. ONCE PT WOULD BE AWAKENED AND ENCOURAGED TO TAKE DEEP BREATHS, 02 LEVELS WOULD INCREASE SLOWLY TO 90-92%.
[2024-07-04] MEDS: Furosemide 20 MG/2 ML VIAL IV ×3 (04:56→22:22)
[2024-07-04] MEDS: 0.9% Saline Lock 10 ML Syringe IV ×3 (04:56→22:21)
[2024-07-04 07:35] LABS: BUN 13 mg/dL (7-18); BUN/Creat Ratio 29.7 RATIO (10-20); Calcium,Total 9.6 mg/dL (8.5-10.1); Carbon Dioxide > 45.0 mmol/L (21.0-32.0); Chloride 86 mmol/L (98-107); Creatinine, Serum 0.44 mg/dL (0.55-1.02); EST Glomerular Filtration Rate 161 mL/min (>60); Est Glom Filt Rate - Afr Amer 195 mL/min (>60); Estimated Creatinine Clearance 301.47 ml/min; Glucose 96 mg/dL (74-106); Potassium 3.5 mmol/L (3.5-5.1); Sodium Level 139 mmol/L (136-145)
[2024-07-04] MEDS: Senna/Docusate Sodium 1 Tablet 2 TABLET PO (08:49)
[2024-07-04] MEDS: Potassium Chloride Oral Tablet 20 MEQ PO ×2 (08:49→16:47)
[2024-07-04] MEDS: Enoxaparin 40 MG/0.4 ML Syringe SC ×2 (08:49→22:22)
[2024-07-04] MEDS: Ceftriaxone 1 GM/50 ML BAG IV (08:50)
--- NOTE | 2024-07-04 09:24 | CASEMGMT ---
Addendum entered by Kelly Sparks 07/04/24 10:21: Social Work If pt did become ready for discharge on the weekend, she did tell SW is okay with returning to [facility] and deciding from there if she would want to make a change. Pt likely not to be ready this weekend, Green sheet on chart in event pt would be ready on weekend. NICO Del Rosario Original Note: Social work SW met w/pt, spoke w/her about discharge plan. Pt is not sure if she wants to return to [facility] or go to a different facility. She has been at [facility] for 3 days. Her concern in going to a different facility would be whether or not the facility would be able to meet her needs, pt aware she has specific needs due to her size. SW explained we can make referrals and the facilities would review the referrals to see if they can manage pt's care, if they cannot they would not accept pt. Pt states understanding. SW did provide to pt a list via [facility] [place] facilities in network w/pt's insurance, in pt's preferred geographic area, and complete w/quality and resource use data. SW asked pt to review the list over the weekend and SW Saturday can check w/her to see if she would like a facility change or would like to stay at [facility]. SW did ask pt to choose a few alternative options should she want to make a change. Pt has mentioned [facility] but has not said for certain if she wants a referral there. SW did check w/physician, he states pt will be here through the . SW let pt know, and will ask SW to check w/her on Saturday regarding what she would like to do. Pt states understanding. Plan: SNF, facility TBD, SW to follow up on Saturday. NICO Del Rosario
--- NOTE | 2024-07-04 13:59 | PCM.PN.HOSP ---
Reason for Visit Reason for Visit: Diagnoses Acute and chronic respiratory failure with hypoxia (07/02/24) Hypoxemia (07/02/24) Subjective Subjective Patient was seen and examined today, she is on 6 L of oxygen presently, her lower extremity venous duplex scan was negative yesterday for VTE. Objective Data Objective Data Vital Signs: Vital Signs Temp Pulse Resp BP Pulse Ox O2 Del Method O2 Flow Rate 97.8 F 96 18 137/69 H 94 Nasal Cannula 6 07/04/24 13:15 07/04/24 13:15 07/04/24 13:15 07/04/24 13:15 07/04/24 13:15 07/04/24 13:58 07/04/24 13:58 FiO2 35 07/04/24 01:00 Oxygen Flow Rate (L/min) 6 Oxygen Delivery Method Nasal Cannula Weight: 226.666 kg Body Mass Index (BMI) 80.6 Intake & Output: Intake and Output for Last 24 Hours 07/02/24 07/03/24 07/04/24 23:59 23:59 23:59 Intake Total 600 / 600 500 / 500 250 / 250 Output Total 3400 / 3400 3100 / 4100 2600 / 2600 Balance -2800 / -2800 -2600 / -3600 -2350 / -2350 Lab / Micro Data 07/03/24 07:31 07/04/24 05:33 Labs: Laboratory Results - last 24 hr 07/03/24 14:43: D-Dimer Quant (PE/DVT) 1.84 H* 07/04/24 05:33: Sodium 139, Potassium 3.5, Chloride 86 L, Carbon Dioxide > 45.0 H*, Anion Gap TNP, BUN 13, Creatinine 0.44 L, Estim Creat Clear Calc 301.47, Est GFR (MDRD) Af Amer 195, Est GFR (MDRD) Non-Af 161, BUN/Creatinine Ratio 29.7 H, Glucose 96, Calcium 9.6 Micro: Microbiology 07/02/24 14:15 Blood Culture (Wb) - Arm Left Blood Culture - Preliminary No growth in 48 hours. 07/02/24 13:05 Blood Culture (Wb) - Anticubital Right Blood Culture - Preliminary No growth in 48 hours. 07/02/24 14:09 Urine, Clean Catch Urine Culture - Final Presumptive E. coli 07/02/24 22:00 Mucosa - Nasopharyngeal Respiratory Panel (PCR) - Final 07/02/24 13:01 Mucosa - Nose SARS-CoV-2, Influenza & RSV (PCR) - Final Radiography Diagnostic Testing: Radiology Impression Echocardiogram 07/02/24 18:14 Interpretation Summary Normal LV size. Left ventricular systolic function is normal. The left ventricular ejection fraction is 60 %. Moderate concentric left ventricular hypertrophy. Stage 1 diastolic dysfunction. Ordering Physician: Soraida Black Referring Physician: ZEE ALVARADO Performed By: Caryl Kumar RCS Venous Doppler Study 07/03/24 15:28 Interpretation Summary Deep veins of the lower extremities are bilaterally patent and compressible segmentally. There is no evidence of deep vein thrombosis on either side. Valvular competence appears intact within the proximal deep venous systems bilaterally. The great saphenous veins appear bilaterally patent and compressible segmentally. The peroneal veins were not visualized on either side. Ordering Physician: Eliot Zafar Referring Physician: Charu Carpenter Performed By: Maylin Doherty RVT Physical Exam Narrative alert, oriented x3 and no apparent distress Constitutional Narrative: Patient has class III obesity General Appearance: cooperative, well kempt and well developed Orientation / Consciousness: awake, oriented to person, oriented to place and oriented to time HEENT normocephalic, head/scalp atraumatic and moist oral mucous membranes Eyes PERRL, EOMs intact bilaterally and conjunctivae normal Neck supple, no JVD, thyroid normal and no carotid bruits General: trachea midline Resp normal respiratory effort, no retractions, no use of accessory muscles and clear to auscultation bilaterally Auscultation: Negative for rales, rhonchi or wheezes Cardio regular rate, regular rhythm, S1 normal heart sound, S2 normal heart sound, no murmurs, no rub and no gallops GI normal to inspection, nondistended, normoactive bowel sounds, soft to palpation, non-tender and non-distended Extremity no clubbing, cyanosis or edema Skin no rashes or lesions noted General Skin Exam: no breakdown Neuro oriented x3, CN's II-XII intact bilaterally, no focal motor deficits and no sensory deficits noted Sensorium / Orientation: awake and alert Speech: speech normal Psych affect normal Assessment & Plan Assessment/Plan (1) CHF (congestive heart failure): (2) Acute on chronic respiratory failure with hypoxemia: PLAN: Plan 1. Acute on chronic combined respiratory failure-pulse ox will be monitored, patient will be placed on BiPAP at night due to suspected sleep apnea #2 acute on chronic diastolic congestive heart failure-patient was placed on programmed IV Lasix, labs will be monitored #3 class III obesity-complicates care, management, recovery, and prognosis Total clinical time spent by myself addressing patient's medical issues, reviewing all of her data, and collaborating with patient's care team: 35 minutes Charges/Coding Visit Charges Inpatient E&M: 78525 Subs Hosp L2
[2024-07-04 18:11] LABS: VBG TCO2 > 50 mmol/L (23-33)
[2024-07-05] VITALS (9 sets, daily range): BP systolic 116–125; BP diastolic 63–73; PULSE 81–93; RESP 12–28; TEMP 36.3–36.8; O2SAT 91–97; BMI 80.6
[2024-07-05] MEDS: ALPRAZolam 0.25 MG Tablet PO ×2 (00:40→21:42)
[2024-07-05] MEDS: MELATONIN 3 MG TABLET PO ×2 (00:40→21:42)
[2024-07-05] MEDS: Acetaminophen 325 MG Tablet 650 MG PO (00:40)
[2024-07-05] MEDS: 0.9% Saline Lock 10 ML Syringe IV ×4 (06:12→23:13)
[2024-07-05] MEDS: Furosemide 20 MG/2 ML VIAL IV ×3 (06:12→23:13)
[2024-07-05 06:16] LABS: BUN 12 mg/dL (7-18); BUN/Creat Ratio 28.6 RATIO (10-20); Calcium,Total 9.3 mg/dL (8.5-10.1); Carbon Dioxide > 45.0 mmol/L (21.0-32.0); Chloride 89 mmol/L (98-107); Creatinine, Serum 0.42 mg/dL (0.55-1.02); EST Glomerular Filtration Rate 169 mL/min (>60); Est Glom Filt Rate - Afr Amer 204 mL/min (>60); Estimated Creatinine Clearance 315.98 ml/min; Glucose 105 mg/dL (74-106); Potassium 3.8 mmol/L (3.5-5.1); Sodium Level 138 mmol/L (136-145)
[2024-07-05] MEDS: Potassium Chloride Oral Tablet 20 MEQ PO ×2 (08:28→17:58)
[2024-07-05] MEDS: Ceftriaxone 1 GM/50 ML BAG IV (08:30)
[2024-07-05] MEDS: Enoxaparin 40 MG/0.4 ML Syringe SC ×2 (08:31→21:53)
--- NOTE | 2024-07-05 13:19 | NURSING ---
This RN taking over care at this time
[2024-07-05 14:02] LABS: BUN 12 mg/dL (7-18); BUN/Creat Ratio 25.2 RATIO (10-20); Calcium,Total 9.6 mg/dL (8.5-10.1); Carbon Dioxide > 45.0 mmol/L (21.0-32.0); Chloride 91 mmol/L (98-107); Creatinine, Serum 0.48 mg/dL (0.55-1.02); EST Glomerular Filtration Rate 146 mL/min (>60); Est Glom Filt Rate - Afr Amer 177 mL/min (>60); Estimated Creatinine Clearance 276.49 ml/min; Glucose 109 mg/dL (74-106); Potassium 4.2 mmol/L (3.5-5.1); Sodium Level 139 mmol/L (136-145)
--- NOTE | 2024-07-05 15:38 | PCM.PN.HOSP ---
Reason for Visit Reason for Visit: Diagnoses Heart failure, unspecified (07/02/24) Acute and chronic respiratory failure with hypoxia (07/02/24) Hypoxemia (07/02/24) Subjective Subjective Patient was seen and examined today, she still on high flow nasal cannula oxygen, I have decided to increase the patient's Lasix to every 6 hours, she is diuresing and there is less edema over her lower legs. Objective Data Objective Data Vital Signs: Vital Signs Temp Pulse Resp BP Pulse Ox O2 Del Method O2 Flow Rate 97.6 F L 81 18 124/63 H 93 Nasal Cannula 7 07/05/24 14:30 07/05/24 14:30 07/05/24 14:30 07/05/24 14:30 07/05/24 14:30 07/05/24 14:30 07/05/24 14:55 FiO2 55 07/05/24 07:10 Oxygen Flow Rate (L/min) 7 Oxygen Delivery Method Nasal Cannula Weight: 226.825 kg Body Mass Index (BMI) 80.6 Intake & Output: Intake and Output for Last 24 Hours 07/03/24 07/04/24 07/05/24 23:59 23:59 23:59 Intake Total 500 / 500 500 / 800 550 / 550 Output Total 3100 / 4100 3600 / 4350 1800 / 1800 Balance -2600 / -3600 -3100 / -3550 -1250 / -1250 Lab / Micro Data 07/03/24 07:31 07/05/24 12:27 Labs: Laboratory Results - last 24 hr 07/05/24 05:20: Sodium 138, Potassium 3.8, Chloride 89 L, Carbon Dioxide > 45.0 H*, Anion Gap TNP, BUN 12, Creatinine 0.42 L, Estim Creat Clear Calc 315.98, Est GFR (MDRD) Af Amer 204, Est GFR (MDRD) Non-Af 169, BUN/Creatinine Ratio 28.6 H, Glucose 105, Calcium 9.3 07/05/24 12:27: Sodium 139, Potassium 4.2, Chloride 91 L, Carbon Dioxide > 45.0 H*, Anion Gap TNP, BUN 12, Creatinine 0.48 L, Estim Creat Clear Calc 276.49, Est GFR (MDRD) Af Amer 177, Est GFR (MDRD) Non-Af 146, BUN/Creatinine Ratio 25.2 H, Glucose 109 H, Calcium 9.6 Micro: Microbiology 07/02/24 14:15 Blood Culture (Wb) - Arm Left Blood Culture - Preliminary No growth in 48 hours. 07/02/24 13:05 Blood Culture (Wb) - Anticubital Right Blood Culture - Preliminary No growth in 48 hours. 07/02/24 14:09 Urine, Clean Catch Urine Culture - Final Presumptive E. coli 07/02/24 22:00 Mucosa - Nasopharyngeal Respiratory Panel (PCR) - Final 07/02/24 13:01 Mucosa - Nose SARS-CoV-2, Influenza & RSV (PCR) - Final ABG Data ABG results: ABG 07/02/24 13:15 VBG Total CO2 > 50 H Physical Exam Narrative alert, oriented x3 and no apparent distress Constitutional Narrative: Patient has class III obesity General Appearance: cooperative, well kempt and well developed Orientation / Consciousness: awake, oriented to person, oriented to place and oriented to time HEENT normocephalic, head/scalp atraumatic and moist oral mucous membranes Eyes PERRL, EOMs intact bilaterally and conjunctivae normal Neck supple, no JVD, thyroid normal and no carotid bruits General: trachea midline Resp normal respiratory effort, no retractions, no use of accessory muscles and clear to auscultation bilaterally Auscultation: Negative for rales, rhonchi or wheezes Cardio regular rate, regular rhythm, S1 normal heart sound, S2 normal heart sound, no murmurs, no rub and no gallops GI normal to inspection, nondistended, normoactive bowel sounds, soft to palpation, non-tender and non-distended Extremity no clubbing, cyanosis or edema Skin no rashes or lesions noted General Skin Exam: no breakdown Neuro oriented x3, CN's II-XII intact bilaterally, no focal motor deficits and no sensory deficits noted Sensorium / Orientation: awake and alert Speech: speech normal Psych affect normal Assessment & Plan Assessment/Plan (1) CHF (congestive heart failure): (2) Acute on chronic respiratory failure with hypoxemia: PLAN: Plan 1. Acute on chronic combined respiratory failure-pulse ox will be monitored, patient remains on BiPAP at night due to suspected sleep apnea #2 acute on chronic diastolic congestive heart failure-I have increased the patient's Lasix to 20 mg IV every 6 hours #3 class III obesity-complicates care, management, recovery, and prognosis Total clinical time spent by myself addressing patient's medical issues, reviewing all of her data, and collaborating with patient's care team: 35 minutes Charges/Coding Visit Charges Inpatient E&M: 22241 Subs Hosp L2
[2024-07-05] MEDS: Ondansetron 4 MG/2 ML Vial IV (21:42)
[2024-07-06] VITALS (11 sets, daily range): BP systolic 113–137; BP diastolic 66–71; PULSE 81–95; RESP 12–20; TEMP 36.1–36.9; O2SAT 92–100; BMI 79.8
[2024-07-06 04:12] LABS: BUN 11 mg/dL (7-18); BUN/Creat Ratio 24.8 RATIO (10-20); Calcium,Total 9.4 mg/dL (8.5-10.1); Carbon Dioxide > 45.0 mmol/L (21.0-32.0); Chloride 90 mmol/L (98-107); Creatinine, Serum 0.44 mg/dL (0.55-1.02); EST Glomerular Filtration Rate 159 mL/min (>60); Est Glom Filt Rate - Afr Amer 192 mL/min (>60); Estimated Creatinine Clearance 301.62 ml/min; Glucose 101 mg/dL (74-106); Potassium 3.9 mmol/L (3.5-5.1); Sodium Level 138 mmol/L (136-145)
[2024-07-06] MEDS: 0.9% Saline Lock 10 ML Syringe IV ×3 (05:24→16:58)
[2024-07-06] MEDS: Furosemide 20 MG/2 ML VIAL IV ×3 (05:24→17:00)
--- NOTE | 2024-07-06 09:24 | PN.HOSP_ITS ---
Reason for Visit Reason for Visit: Diagnoses Heart failure, unspecified (07/02/24) Acute and chronic respiratory failure with hypoxia (07/02/24) Hypoxemia (07/02/24) Subjective Subjective Breathing well. Still requiring 7L at rest. Objective Data Objective Data Vital Signs: Vital Signs Temp Pulse Resp BP Pulse Ox O2 Del Method O2 Flow Rate 36.9 C 87 15 113/71 97 Bi-pap 8 07/06/24 03:40 07/06/24 04:39 07/06/24 04:39 07/06/24 03:40 07/06/24 04:39 07/06/24 03:40 07/06/24 01:30 FiO2 40 07/06/24 04:39 Oxygen Flow Rate (L/min) 8 Oxygen Delivery Method Bi-pap Weight: 224.347 kg Body Mass Index (BMI) 79.8 Intake & Output: Intake and Output for Last 24 Hours 07/04/24 07/05/24 07/06/24 23:59 23:59 23:59 Intake Total 500 / 800 1310 / 1310 100 / 100 Output Total 3600 / 4350 3450 / 3450 550 / 550 Balance -3100 / -3550 -2140 / -2140 -450 / -450 Lab / Micro Data 07/03/24 07:31 07/06/24 03:29 Labs: Laboratory Results - last 24 hr 07/05/24 12:27: Sodium 139, Potassium 4.2, Chloride 91 L, Carbon Dioxide > 45.0 H*, Anion Gap TNP, BUN 12, Creatinine 0.48 L, Estim Creat Clear Calc 276.49, Est GFR (MDRD) Af Amer 177, Est GFR (MDRD) Non-Af 146, BUN/Creatinine Ratio 25.2 H, Glucose 109 H, Calcium 9.6 07/06/24 03:29: Sodium 138, Potassium 3.9, Chloride 90 L, Carbon Dioxide > 45.0 H*, Anion Gap TNP, BUN 11, Creatinine 0.44 L, Estim Creat Clear Calc 301.62, Est GFR (MDRD) Af Amer 192, Est GFR (MDRD) Non-Af 159, BUN/Creatinine Ratio 24.8 H, Glucose 101, Calcium 9.4 Micro: Microbiology 07/02/24 14:15 Blood Culture (Wb) - Arm Left Blood Culture - Preliminary No growth in 48 hours. 12/05/24 13:05 Blood Culture (Wb) - Anticubital Right Blood Culture - Preliminary No growth in 48 hours. 07/02/24 14:09 Urine, Clean Catch Urine Culture - Final Presumptive E. coli 07/02/24 22:00 Mucosa - Nasopharyngeal Respiratory Panel (PCR) - Final 07/02/24 13:01 Mucosa - Nose SARS-CoV-2, Influenza & RSV (PCR) - Final Physical Exam Const alert and no apparent distress HEENT head/scalp atraumatic and moist oral mucous membranes Resp normal respiratory effort, no retractions, no use of accessory muscles and clear to auscultation bilaterally Cardio regular rate, regular rhythm, S1 normal heart sound and S2 normal heart sound GI normal to inspection, nondistended, normoactive bowel sounds, soft to palpation, non-tender and non-distended Extremity normal to inspection and full ROM Neuro Sensorium / Orientation: awake and alert Assessment & Plan Assessment/Plan (1) CHF (congestive heart failure): (2) Acute on chronic respiratory failure with hypoxemia: PLAN: Plan Acute on chronic combined respiratory failure * [place], CHF, OHS * pulse ox will be monitored, patient remains on BiPAP at night due to suspected sleep apnea * Patient requires volume ventilation and all other alternative therapies, including bilevel, have been considered and ruled out due to the severity of the disease state, weak breathing muscles and potential life-threatening condition including CO2 retention probability of acute exacerbation, patient requires ventilation to be used during the day as needed, addition to every night usage with facemask. Acute HFpEF * EF 60% * acute on chronic diastolic congestive heart failure-I have increased the patient's Lasix to 20 mg IV every 6 hours UTI * E. coli. On CTX. class III obesity-complicates care, management, recovery, and prognosis VTE prophylaxis: LMWH Charges/Coding Visit Charges Inpatient E&M: 36680 Subs Hosp L2
[2024-07-06] MEDS: Ondansetron 4 MG/2 ML Vial IV (09:29)
[2024-07-06] MEDS: Acetaminophen 325 MG Tablet 650 MG PO (09:29)
[2024-07-06] MEDS: Potassium Chloride Oral Tablet 20 MEQ PO ×2 (09:30→16:59)
[2024-07-06] MEDS: Ceftriaxone 1 GM/50 ML BAG IV (09:31)
--- NOTE | 2024-07-06 09:35 | CASEMGMT ---
SW met with patient. Patient has decided to return to [facility] when ready for discharge. Plan: d/c back to [facility] when medically ready. Aissatou UMANA
[2024-07-06] MEDS: Enoxaparin 40 MG/0.4 ML Syringe SC ×2 (09:36→22:00)
--- NOTE | 2024-07-06 09:53 | CASEMGMT ---
Discharge Planning Updates sent to [facility]. Sarah Vargas DC Planning Asst.
--- NOTE | 2024-07-06 10:07 | CASEMGMT ---
Discharge Planning Pt will now need a new precert. SW updated. Sarah Vargas DC Planning Asst.
--- NOTE | 2024-07-06 15:25 | CHAPLAIN ---
Type of Pastoral Visit _x__ Initial Visit ___ Follow-up Visit ___ On-call Visit ___ General Patient Visit ___ Spiritual Assessment ___ Family Conference ___ Bereavement ___ Rapid Response ___ Code Blue ___ Other (describe below) Pastoral Care Referral From _x__ Patient ___ Family ___ Nurse ___ Physician ___ Clinical Immunologist ___ Slat Basket Maker Helper ___ Other (describe below) Sacrament/Intervention _x__ Active listening ___ Anointing ___ Pentecostal ___ Bereavement ___ Communion _x__ Dara exploration ___ _x__ Life review _x__ Prayer ___ Reconciliation ___ Sacrament of Sick _x__ Supportive presence ___ Wedding ___ Other (describe below) Pastoral Comments patient states that she has a very specific spiritual question that has bothered her for many years; pt asks her question and receives information from the scriptures about it; pt asks for reference so that she can follow up on reading on this topic; pt expresses her anxieties and worries about this issue and how her family has lacked in support of her during her illness; pt has a sense of loneliness which is addressed in the visit; pt welcomes presence and prayer
[2024-07-06] MEDS: Albuterol 2.5 MG/3 ML VIAL.NEB. INHALATION (17:03)
[2024-07-06] MEDS: MELATONIN 3 MG TABLET PO (22:00)
[2024-07-07] VITALS (11 sets, daily range): BP systolic 101–119; BP diastolic 55–79; PULSE 75–95; RESP 12–22; TEMP 36.7–37; O2SAT 93–100; BMI 79.9
[2024-07-07] MEDS: Furosemide 20 MG/2 ML VIAL IV ×3 (00:40→10:04)
[2024-07-07] MEDS: 0.9% Saline Lock 10 ML Syringe IV ×3 (00:41→15:59)
[2024-07-07] MEDS: Ondansetron 4 MG/2 ML Vial IV ×2 (01:37→10:04)
--- NOTE | 2024-07-07 04:17 | CPS ---
RT and RN have each walked into to check on pt as she was desatting. RT thought pt may have taken bipap off again or it got disconnected. Neither was the case. We both witnessed pt having periods of apnea lasting 30-40 seconds. We wake pt up and her o2 sats increase immediately. but only when she is stimulated even on the bipap. pt is mid 90s on 45% resp rate was increased to 14. When pt in deep sleep is when periods of apnea begin. Pt is on AVAPS. RN aware.
[2024-07-07 06:28] LABS: Absolute Lymphocyte Count 0.68 X10^3/uL (0.83-4.51); Absolute Neutrophil Count 3.6 X10^3/uL (2.0-7.7); Basophil# 0.05 X10^3/uL; Eosinophil# 0.24 X10^3/uL; Eosinophils% 4.6 % (0-5); Hematocrit 40.2 % (37-47); Hemoglobin 11.3 g/dL (12.0-15.0); Lymphocyte # 0.68 X10^3/ul (0.83-4.51); Mean Corp Hgb Conc 28.1 g/dL (32-36); Mean Corpuscular Volume 99.5 fL (81-99); Monocyte# 0.66 X10^3/uL; Monocyte% 12.6 % (0-10); NRBC Flagged by Analyzer 0 % (0-5); Neutrophil # 3.56 X10^3/uL (2.7-7.7); Neutrophil % 67.7 % (47-70); POSITIVE MORPHOLOGY YES; Platelet Count 171 K/mm3 (150-450); RBC Distribution Width CV 20.3 % (11.6-14.6); RBC Distribution Width SD 74.9 fl (35.1-43.9); Red Blood Count 4.04 M/mm3 (4.2-5.4); White Blood Count 5.3 K/mm3 (4.4-11.0)
[2024-07-07 06:32] LABS: Differential Indicated SCAN CRITERIA MET
[2024-07-07 06:49] LABS: Anion Gap 1 (5-15); BUN 11 mg/dL (7-18); BUN/Creat Ratio 23.3 RATIO (10-20); Calcium,Total 9.5 mg/dL (8.5-10.1); Chloride 90 mmol/L (98-107); Creatinine, Serum 0.47 mg/dL (0.55-1.02); EST Glomerular Filtration Rate 147 mL/min (>60); Est Glom Filt Rate - Afr Amer 178 mL/min (>60); Estimated Creatinine Clearance 280.38 ml/min; Glucose 104 mg/dL (74-106); Potassium 4.1 mmol/L (3.5-5.1); Sodium Level 135 mmol/L (136-145)
[2024-07-07 06:58] LABS: Differential Comment SCANNED; Platelet Estimate ADEQUATE (ADEQ)
[2024-07-07 06:59] LABS: Anisocytosis 2+; Basophilic Stippling 1+; Hypochromasia 2+; Polychromasia 1+
--- NOTE | 2024-07-07 08:50 | PN.HOSP_ITS ---
Reason for Visit Reason for Visit: Diagnoses Heart failure, unspecified (07/02/24) Acute and chronic respiratory failure with hypoxia (07/02/24) Hypoxemia (07/02/24) Subjective Subjective Feels well, despite increased oxygen requirements. Has been using the IS. Objective Data Objective Data Vital Signs: Vital Signs Temp Pulse Resp BP Pulse Ox O2 Del Method O2 Flow Rate 36.8 C 83 18 118/79 94 High Flow 7 07/07/24 03:50 07/07/24 03:50 07/07/24 03:50 07/07/24 03:50 07/07/24 07:40 07/07/24 07:40 07/07/24 07:40 FiO2 45 07/07/24 03:50 Oxygen Flow Rate (L/min) 7 Oxygen Delivery Method High Flow Weight: 224.6 kg Body Mass Index (BMI) 79.9 Intake & Output: Intake and Output for Last 24 Hours 07/05/24 07/06/24 07/07/24 23:59 23:59 23:59 Intake Total 1310 / 1310 910 / 1190 280 / 280 Output Total 3450 / 3450 2275 / 2925 1250 / 1250 Balance -2140 / -2140 -1365 / -1735 -970 / -970 Lab / Micro Data 07/07/24 05:47 07/07/24 05:47 Labs: Laboratory Results - last 24 hr 07/07/24 05:47: WBC 5.3, RBC 4.04 L, Hgb 11.3 L, Hct 40.2, MCV 99.5 H, MCH 28.0, MCHC 28.1 L, RDW Std Deviation 74.9 H, RDW Coeff of Michaelle 20.3 H, Plt Count 171, MPV 12.0, Immature Gran % (Auto) 1.100 H, Neut % (Auto) 67.7, Lymph % (Auto) 13.0 L, [place] % (Auto) 12.6 H, Eos % (Auto) 4.6, Baso % (Auto) 1.0, Absolute Neuts (auto) 3.6, Absolute Lymphs (auto) 0.68 L, Nucleated RBC % 0, Differential Comment SCANNED, Platelet Estimate ADEQUATE, Polychromasia 1+, Hypochromasia 2+, Basophilic Stippling 1+, Anisocytosis 2+, Sodium 135 L, Potassium 4.1, Chloride 90 L, Carbon Dioxide 44.0 H, Anion Gap 1 L, BUN 11, Creatinine 0.47 L, Estim Creat Clear Calc 280.38, Est GFR (MDRD) Af Amer 178, Est GFR (MDRD) Non-Af 147, BUN/Creatinine Ratio 23.3 H, Glucose 104, Calcium 9.5 Micro: Microbiology 07/02/24 14:15 Blood Culture (Wb) - Arm Left Blood Culture - Preliminary No growth in 48 hours. 07/02/24 13:05 Blood Culture (Wb) - Anticubital Right Blood Culture - Preliminary No growth in 48 hours. 07/02/24 14:09 Urine, Clean Catch Urine Culture - Final Presumptive E. coli 07/02/24 22:00 Mucosa - Nasopharyngeal Respiratory Panel (PCR) - Final 07/02/24 13:01 Mucosa - Nose SARS-CoV-2, Influenza & RSV (PCR) - Final Physical Exam Const alert and no apparent distress HEENT head/scalp atraumatic and moist oral mucous membranes Neck no lymphadenopathy Resp normal respiratory effort, no retractions and no use of accessory muscles Cardio regular rate, regular rhythm, S1 normal heart sound and S2 normal heart sound GI normal to inspection, nondistended, normoactive bowel sounds Extremity Extremity Narrative: Edema with lymphedematous changes bilaterally. Not taut Neuro Sensorium / Orientation: awake Assessment & Plan Assessment/Plan (1) CHF (congestive heart failure): (2) Acute on chronic respiratory failure with hypoxemia: PLAN: Plan Acute on chronic combined respiratory failure * KEAGAN, CHF, OHS * pulse ox will be monitored, patient remains on BiPAP at night due to suspected sleep apnea * Patient requires volume ventilation and all other alternative therapies, including bilevel, have been considered and ruled out due to the severity of the disease state, weak breathing muscles and potential life-threatening condition including CO2 retention probability of acute exacerbation, patient requires ventilation to be used during the day as needed, addition to every night usage with facemask. * Pt will require outpt pulmonary follow up. Acute HFpEF * EF 60% * increase furosemide to 60 IV TID. UTI * E. coli. on cephalexin through the . class III obesity-complicates care, management, recovery, and prognosis VTE prophylaxis: LMWH Charges/Coding Visit Charges Inpatient E&M: 00928 Subs Hosp L2
[2024-07-07] MEDS: Potassium Chloride Oral Tablet 20 MEQ PO ×2 (10:02→15:56)
[2024-07-07] MEDS: Senna/Docusate Sodium 1 Tablet 2 TABLET PO (10:03)
[2024-07-07] MEDS: Enoxaparin 40 MG/0.4 ML Syringe SC ×2 (10:04→21:51)
[2024-07-07] MEDS: Ceftriaxone 1 GM/50 ML BAG IV (10:10)
[2024-07-07] MEDS: Albuterol 2.5 MG/3 ML VIAL.NEB. INHALATION (10:49)
[2024-07-07] MEDS: Furosemide 20 MG/2 ML VIAL 60 MG IV (15:56)
[2024-07-07] MEDS: MELATONIN 3 MG TABLET PO (21:51)
[2024-07-08] VITALS (7 sets, daily range): BP systolic 118–127; BP diastolic 62–75; PULSE 84–96; RESP 14–20; TEMP 36.4–36.6; O2SAT 92–96; BMI 78.0
[2024-07-08] MEDS: Furosemide 20 MG/2 ML VIAL 60 MG IV ×2 (00:17→08:25)
[2024-07-08] MEDS: Acetaminophen 325 MG Tablet 650 MG PO (06:11)
--- NOTE | 2024-07-08 07:39 | PN.HOSP_ITS ---
Reason for Visit Reason for Visit: Diagnoses Heart failure, unspecified (07/02/24) Acute and chronic respiratory failure with hypoxia (07/02/24) Hypoxemia (07/02/24) Subjective Subjective Increased oxygen requirements. Objective Data Objective Data Vital Signs: Vital Signs Temp Pulse Resp BP Pulse Ox O2 Del Method O2 Flow Rate 36.6 C 87 15 127/74 H 93 Bi-pap 10 07/08/24 03:22 07/08/24 05:40 07/08/24 05:40 07/08/24 03:22 07/08/24 05:40 07/08/24 03:22 07/07/24 21:44 FiO2 45 07/08/24 05:40 Oxygen Flow Rate (L/min) 10 Oxygen Delivery Method Bi-pap Weight: 219.357 kg Body Mass Index (BMI) 78.0 Intake & Output: Intake and Output for Last 24 Hours 07/06/24 07/07/24 07/08/24 23:59 23:59 23:59 Intake Total 910 / 1190 810 / 810 Output Total 2275 / 2925 4775 / 5875 1100 / 1100 Balance -1365 / -1735 -3965 / -5065 -1100 / -1100 Lab / Micro Data 07/08/24 07:17 07/08/24 07:17 Micro: Microbiology 07/02/24 14:15 Blood Culture (Wb) - Arm Left Blood Culture - Final No growth in 5 days. 07/02/24 13:05 Blood Culture (Wb) - Anticubital Right Blood Culture - Final No growth in 5 days. 07/02/24 14:09 Urine, Clean Catch Urine Culture - Final Presumptive E. coli 07/02/24 22:00 Mucosa - Nasopharyngeal Respiratory Panel (PCR) - Final 07/02/24 13:01 Mucosa - Nose SARS-CoV-2, Influenza & RSV (PCR) - Final Physical Exam Const alert and no apparent distress Resp normal respiratory effort, no retractions, no use of accessory muscles and clear to auscultation bilaterally Cardio regular rate, regular rhythm, S1 normal heart sound and S2 normal heart sound GI normal to inspection, nondistended, normoactive bowel sounds, soft to palpation, non-tender and non-distended Neuro Sensorium / Orientation: awake and alert Assessment & Plan Assessment/Plan (1) CHF (congestive heart failure): (2) Acute on chronic respiratory failure with hypoxemia: PLAN: Plan Acute on chronic combined respiratory failure * KEAGAN, CHF, OHS * pulse ox will be monitored, patient remains on BiPAP at night due to suspected sleep apnea * Patient requires volume ventilation and all other alternative therapies, including bilevel, have been considered and ruled out due to the severity of the disease state, weak breathing muscles and potential life-threatening condition including CO2 retention probability of acute exacerbation, patient requires ventilation to be used during the day as needed, addition to every night usage with facemask. * Consult pulmonary given lack of significant progress. Procalcitoin negative. Repeat cxr showing diffuse edema. COVID 19/influenza/RSV negative Acute HFpEF * EF 60% * Change furosemide to a drip. UTI * E. coli. on cephalexin through the . class III obesity-complicates care, management, recovery, and prognosis VTE prophylaxis: LMWH Charges/Coding Visit Charges Inpatient E&M: 64603 Subs Hosp L2
[2024-07-08 07:41] LABS: Absolute Lymphocyte Count 0.79 X10^3/uL (0.83-4.51); Absolute Neutrophil Count 4.3 X10^3/uL (2.0-7.7); Basophil# 0.05 X10^3/uL; Basophil% 0.8 % (0-1); Eosinophil# 0.25 X10^3/uL; Eosinophils% 4.1 % (0-5); Hematocrit 40.7 % (37-47); Hemoglobin 11.9 g/dL (12.0-15.0); Lymphocyte # 0.79 X10^3/ul (0.83-4.51); Mean Corp Hgb Conc 29.2 g/dL (32-36); Mean Corpuscular Hgb 28.5 pg (27.0-32.0); Mean Corpuscular Volume 97.6 fL (81-99); Mean Platelet Vol. 12.1 fl (6.2-12.0); Monocyte# 0.66 X10^3/uL; Monocyte% 10.9 % (0-10); NRBC Flagged by Analyzer 0 % (0-5); Neutrophil # 4.27 X10^3/uL (2.7-7.7); Neutrophil % 70.4 % (47-70); POSITIVE MORPHOLOGY YES; Platelet Count 189 K/mm3 (150-450); RBC Distribution Width CV 20.2 % (11.6-14.6); RBC Distribution Width SD 72.4 fl (35.1-43.9); Red Blood Count 4.17 M/mm3 (4.2-5.4); White Blood Count 6.1 K/mm3 (4.4-11.0)
[2024-07-08 07:49] LABS: Differential Indicated SCAN CRITERIA MET
[2024-07-08 08:04] LABS: BUN 12 mg/dL (7-18); BUN/Creat Ratio 21.8 RATIO (10-20); Calcium,Total 9.7 mg/dL (8.5-10.1); Carbon Dioxide > 45.0 mmol/L (21.0-32.0); Chloride 86 mmol/L (98-107); Creatinine, Serum 0.55 mg/dL (0.55-1.02); EST Glomerular Filtration Rate 124 mL/min (>60); Est Glom Filt Rate - Afr Amer 149 mL/min (>60); Estimated Creatinine Clearance 235.59 ml/min; Glucose 102 mg/dL (74-106); Potassium 4.1 mmol/L (3.5-5.1); Sodium Level 137 mmol/L (136-145)
[2024-07-08] MEDS: 0.9% Saline Lock 10 ML Syringe IV (08:28)
--- NOTE | 2024-07-08 08:30 | RAD_ITS ---
STUDY: X-RAY CHEST REASON FOR EXAM: Female, 49 years old. Respiratory Failure TECHNIQUE: Single AP portable view of the chest. COMPARISON: Comparison is made with prior study dated July 02, 2024. FINDINGS: EKG electrodes are seen. Since prior study, there has been progression of the CHF. There is no demonstrated pleural abnormality. There is moderate cardiac enlargement. Normal mediastinum and berny. Normal visualized pulmonary arteries. Normal visualized aortic arch and descending thoracic aorta. Normal visualized thoracic spine. Normal visualized ribs, clavicles, and shoulders. There is no demonstrated abnormality of the visualized soft tissue structures of the upper abdomen. RAD/Chest 1 View (Portable) IMPRESSION: Progressive CHF. Electronically Signed: Chevy Platt MD at 8:54 EST ,
[2024-07-08 09:00] LABS: BNP,B-Type NATRIURETIC PEPTIDE 108.5 pg/mL (0-100)
[2024-07-08 09:08] LABS: Procalcitonin 0.09 ng/mL (0.00-0.09)
[2024-07-08 09:20] LABS: Allen Test Positive; Base Excess 23 mmol/L (-2 to +2); Bicarbonate 47.9 mmol/L (22-26); Blood Gas Specimen Type ART; Mode Not entered; O2 Delivery Device Cannula; PO2 69 mmHG (75-100); SITE L Radial; SO2 92 % (95-99); Total Carbon Dioxide > 50 mmol/L; pCO2 82.4 mmHg (35-45); pH 7.37 (7.35-7.45)
--- NOTE | 2024-07-08 10:22 | CON.PCM.CC_ITS ---
Assessment & Plan Assessment/Plan (1) Acute on chronic respiratory failure with hypoxemia: PLAN: Plan RECOMMENDATIONS: 1. Obtain follow-up chest x-ray. 2. Send RSV, COVID and influenza PCR 3. Check procalcitonin. 4. Obtain follow-up ABG. 5. Ongoing diuresis as tolerated by hemodynamics and renal function. 6. Antimicrobials for 2 additional days. 7. Encourage incentive spirometer use while in bed and mobilize patient as tolerated. IMPRESSIONS: 1. Acute on chronic combined respiratory failure The patient most likely has an underlying component of alveolar hypoventilation secondary to obesity, combined with likely sleep disordered breathing. She has never completed an outpatient polysomnogram. She presented to the hospital with shortness of breath and has been diuresed aggressively over the course of her hospital stay. However, she continues to require a significant amount of supplemental oxygen. Therefore, we will plan to obtain follow-up chest x-ray and ABG today. In addition, we will plan to check a procalcitonin and resend RSV, COVID and influenza PCR. If the patient's chest imaging continues to demonstrate findings concerning for congestive heart failure and her procalcitonin level is normal, would consider transition to a Lasix infusion. Otherwise, continue supplemental oxygen to maintain saturations 88 to 92%, along with empiric PAP therapy with naps and nightly. 2. E. coli UTI/super morbid obesity Complicates care, management, recovery and prognosis. Continue antimicrobials to complete treatment course. This note was generated with [employer] dictation software. It may contain incorrect words, spelling, and punctuation that were not noted in checking the note before signing. HPI Consult Data Date of Consult: 07/08/24 HPI Narrative Reason for Consultation: Acute on chronic combined respiratory failure HPI Narrative: The patient is a 49-year-old female, with a history as outlined below, who initially presented to the emergency department on July 02 with increasing dyspnea. The patient reported that she was recently admitted to [facility] with an unknown knee injury and subsequently discharged on supplemental oxygen to [facility]. However, the patient was unclear how much oxygen she was requiring at the time of her recent hospital discharge. The patient reported that she has never been evaluated for underlying sleep apnea. Prior to her recent hospitalization, she was apparently not requiring supplemental oxygen at her baseline. She denied a history of venous thromboembolic disease. The patient was initially admitted to the hospital and placed on diuretics over concerns for decompensated heart failure with preserved ejection fraction. While PE was in the differential, the patient is too large to fit into a CT scanner machine. Therefore, lower extremity Dopplers were obtained, which were negative. According to documentation, the patient is overall net -17 L for the hospitalization. Despite this, she remains hypoxemic. At the present time, the patient is requiring 10 L/min of supplemental oxygen throughout the day and noninvasive positive pressure ventilatory support nightly. The patient denies the presence of a productive cough. The patient's chest imaging continues to demonstrate stigmata of congestive heart failure. [facility] Home Medications ?Medication ?Instructions ?Recorded ?Last Taken ?Type acetaminophen 325 mg capsule 650 mg PO Q4H PRN fever 07/02/24 Unknown History acetaminophen 650 mg rectal 650 mg GA Q4H 07/02/24 Unknown History suppository albuterol sulfate 2.5 mg/3 mL 2.5 mg inhalation Q4H PRN 07/02/24 07/01/24 History (0.083 %) solution for nebulization shortness of breath or wheezing aluminum-magnesium hydroxide 200 30 ml PO Q4H PRN GI DISTRESS 07/02/24 07/01/24 History mg-200 mg/5 mL oral suspension (MAG-AL) ascorbic acid (vitamin C) 500 mg 500 mg PO DAILY 07/02/24 07/02/24 History capsule bisacodyl 10 mg rectal suppository 10 mg GA DAILY PRN constipation 07/02/24 Unknown History dextromethorphan-guaifenesin 10 5 ml PO Q6H PRN cough 07/02/24 Unknown History mg-100 mg/5 mL oral liquid (Biocotron) ergocalciferol (vitamin D2) 1,250 1,250 mcg PO QWEEK 07/02/24 Unknown History mcg (50,000 unit) capsule (Vitamin D2) guaifenesin 100 mg/5 mL oral 200 mg PO Q4H PRN congestion 07/02/24 Unknown History liquid (Adult Tussin Chest Congestion) hydroxyzine HCl 25 mg tablet 25 mg PO TID PRN RESTLESSNESS 07/02/24 07/01/24 History miconazole nitrate 2 % topical 1 applic topical DAILY 07/02/24 Unknown History powder (Antifungal (miconazole)) multivit,stress formula-zinc 1 tab PO DAILY 07/02/24 07/02/24 History tablet (Stress B With Zinc tablet) multivitamin (Daily Multi-Vitamin 1 tab PO DAILY 07/02/24 07/02/24 History tablet) ondansetron 4 mg disintegrating 4 mg PO Q8H PRN nausea and vomiting 07/02/24 Unknown History tablet polyethylene glycol 3350 17 17 g PO DAILY PRN constipation 07/02/24 07/01/24 History gram/dose oral powder (ClearLax) sodium phosphates 19 gram-7 118 ml GA DAILY PRN constipation 07/02/24 Unknown History gram/118 mL enema (Enema) spironolactone 25 mg tablet 25 mg PO DAILY 07/02/24 07/02/24 History torsemide 20 mg tablet 20 mg PO BID 07/02/24 07/02/24 History Allergy/AdvReac Type Severity Reaction Status Date / Time No Known Allergies Allergy Verified 07/02/24 12:35 Social History Smoking Status: Never smoker ROS ROS Narrative 10 systems were reviewed with pertinent positives as noted in the HPI above. Physical Exam Const alert and no apparent distress Constitutional Narrative: Super morbidly obese General Appearance: cooperative HEENT normocephalic and head/scalp atraumatic Eyes PERRL, EOMs intact bilaterally and conjunctivae normal Neck supple Neck Narrative: Large neck circumference with redundant soft tissue. General: trachea midline Chest inspection of chest normal Resp Resp Narrative: Distant breath sounds secondary to body habitus. Cardio regular rate and regular rhythm GI normal to inspection, nondistended, normoactive bowel sounds Extremity Extremity Narrative: Lower extremity lymphedema. Skin General Skin Exam: venous stasis and dermatitis Neuro CN's II-XII intact bilaterally, moves all extremities and no focal motor deficits Psych cooperative and affect normal Lab / Micro Data 07/08/24 07:17 07/08/24 07:17 Labs: Laboratory Results - last 24 hr 07/08/24 07:17: WBC 6.1, RBC 4.17 L, Hgb 11.9 L, Hct 40.7, MCV 97.6, MCH 28.5, M CHC 29.2 L, RDW Std Deviation 72.4 H, RDW Coeff of Michaelle 20.2 H, Plt Count 189, M PV 12.1 H, Immature Gran % (Auto) 0.800, Neut % (Auto) 70.4 H, Lymph % (Auto) 13.0 L, [place] % (Auto) 10.9 H, Eos % (Auto) 4.1, Baso % (Auto) 0.8, Absolute Neuts (auto) 4.3, Absolute Lymphs (auto) 0.79 L, Nucleated RBC % 0, Differential Comment , Sodium 137, Potassium 4.1, Chloride 86 L, Carbon Dioxide > 45.0 H*, Anion Gap TNP, BUN 12, Creatinine 0.55, Estim Creat Clear Calc 235.59, Est GFR (MDRD) Af Amer 149, Est GFR (MDRD) Non-Af 124, BUN/Creatinine Ratio 21.8 H, Glucose 102, Calcium 9.7, B-Natriuretic Peptide 108.5 H, Procalcitonin 0.09 Micro: Microbiology 07/02/24 14:15 Blood Culture (Wb) - Arm Left Blood Culture - Final No growth in 5 days. 07/02/24 13:05 Blood Culture (Wb) - Anticubital Right Blood Culture - Final No growth in 5 days. ABG Data ABG results: ABG 07/08/24 09:15 Specimen Type ART Sample Site L Radial pH 7.37 Bicarbonate Actual 47.9 H Total CO2 > 50 Base Excess 23 H O2 Saturation 92 L O2 % 10.0 ABG pCO2 82.4 H* ABG pO2 69 L Ace Test Positive O2 Delivery Device Cannula Vent Mode Not entered Crit Call To/Read Back Yes Blood Gas Notified Whom brown Blood Gas Notified Time 09:16:49 Imaging Radiology Impression Chest X-Ray 07/08/24 08:30 IMPRESSION: Progressive CHF. Electronically Signed: Chevy Platt MD at 8:54 EST , Charges/Coding Visit Charges Inpatient E&M: 58478 Init Hosp L3
[2024-07-08] MEDS: Potassium Chloride Oral Tablet 20 MEQ PO ×2 (11:34→17:48)
[2024-07-08] MEDS: Cephalexin 500 MG Capsule PO ×2 (11:34→22:05)
[2024-07-08] MEDS: Senna/Docusate Sodium 1 Tablet 2 TABLET PO ×2 (11:34→22:05)
[2024-07-08] MEDS: Enoxaparin 40 MG/0.4 ML Syringe SC ×2 (11:35→22:05)
[2024-07-08] MEDS: Furosemide 500 MG in Empty Viaflex 50 mL 1 EACH CONT INF (17:34)
[2024-07-08] MEDS: MELATONIN 3 MG TABLET PO (22:05)
[2024-07-09] VITALS (11 sets, daily range): BP systolic 103–120; BP diastolic 58–63; PULSE 84–96; RESP 14–20; TEMP 36.2–36.8; O2SAT 91–98; BMI 77.0
[2024-07-09 05:47] LABS: Absolute Lymphocyte Count 0.79 X10^3/uL (0.83-4.51); Absolute Neutrophil Count 4.5 X10^3/uL (2.0-7.7); Basophil# 0.04 X10^3/uL; Basophil% 0.6 % (0-1); Eosinophil# 0.27 X10^3/uL; Eosinophils% 4.2 % (0-5); Hematocrit 41.4 % (37-47); Hemoglobin 12.1 g/dL (12.0-15.0); Lymphocyte # 0.79 X10^3/ul (0.83-4.51); Lymphocyte % 12.4 % (19-41); Mean Corp Hgb Conc 29.2 g/dL (32-36); Mean Corpuscular Hgb 28.2 pg (27.0-32.0); Mean Corpuscular Volume 96.5 fL (81-99); Mean Platelet Vol. 11.8 fl (6.2-12.0); NRBC Flagged by Analyzer 0 % (0-5); Neutrophil # 4.51 X10^3/uL (2.7-7.7); Neutrophil % 70.9 % (47-70); POSITIVE MORPHOLOGY YES; Platelet Count 184 K/mm3 (150-450); RBC Distribution Width CV 19.9 % (11.6-14.6); RBC Distribution Width SD 70.6 fl (35.1-43.9); Red Blood Count 4.29 M/mm3 (4.2-5.4); White Blood Count 6.4 K/mm3 (4.4-11.0)
[2024-07-09 06:18] LABS: BUN 11 mg/dL (7-18); BUN/Creat Ratio 25.2 RATIO (10-20); Calcium,Total 9.4 mg/dL (8.5-10.1); Carbon Dioxide > 45.0 mmol/L (21.0-32.0); Chloride 85 mmol/L (98-107); Creatinine, Serum 0.44 mg/dL (0.55-1.02); EST Glomerular Filtration Rate 162 mL/min (>60); Est Glom Filt Rate - Afr Amer 196 mL/min (>60); Estimated Creatinine Clearance 291.63 ml/min; Glucose 115 mg/dL (74-106); Potassium 3.6 mmol/L (3.5-5.1); Sodium Level 134 mmol/L (136-145)
[2024-07-09 06:46] LABS: Differential Indicated SCAN CRITERIA MET
[2024-07-09 07:22] LABS: Anisocytosis 1+
--- NOTE | 2024-07-09 08:43 | PN.HOSP_ITS ---
Reason for Visit Reason for Visit: Diagnoses Heart failure, unspecified (07/02/24) Acute and chronic respiratory failure with hypoxia (07/02/24) Hypoxemia (07/02/24) Subjective Subjective No new events. Objective Data Objective Data Vital Signs: Vital Signs Temp Pulse Resp BP Pulse Ox O2 Del Method O2 Flow Rate 36.4 C L 92 16 106/58 L 95 High Flow 10 07/09/24 03:33 07/09/24 03:35 07/09/24 03:35 07/09/24 03:33 07/09/24 07:41 07/09/24 07:41 07/09/24 07:41 FiO2 45 07/09/24 03:35 Oxygen Flow Rate (L/min) 10 Oxygen Delivery Method High Flow Weight: 216.364 kg Body Mass Index (BMI) 77.0 Intake & Output: Intake and Output for Last 24 Hours 07/07/24 07/08/24 07/09/24 23:59 23:59 23:59 Intake Total 810 / 810 Output Total 4775 / 5875 3500 / 4700 1999 Balance -3965 / -5065 -3500 / -4700 -1999 Lab / Micro Data 07/09/24 05:26 07/09/24 05:26 Labs: Laboratory Results - last 24 hr 07/08/24 07:17: B-Natriuretic Peptide 108.5 H, Procalcitonin 0.09 07/09/24 05:26: WBC 6.4, RBC 4.29, Hgb 12.1, Hct 41.4, MCV 96.5, MCH 28.2, MCHC 29.2 L, RDW Std Deviation 70.6 H, RDW Coeff of Michaelle 19.9 H, Plt Count 184, MPV 11.8, Immature Gran % (Auto) 0.900, Neut % (Auto) 70.9 H, Lymph % (Auto) 12.4 L, [place] % (Auto) 11.0 H, Eos % (Auto) 4.2, Baso % (Auto) 0.6, Absolute Neuts (auto) 4.5, Absolute Lymphs (auto) 0.79 L, Nucleated RBC % 0, Anisocytosis 1+, Sodium 134 L, Potassium 3.6, Chloride 85 L, Carbon Dioxide > 45.0 H*, Anion Gap TNP, BUN 11, Creatinine 0.44 L, Estim Creat Clear Calc 291.63, Est GFR (MDRD) Af Amer 196, Est GFR (MDRD) Non-Af 162, BUN/Creatinine Ratio 25.2 H, Glucose 115 H, Calcium 9.4 Micro: Microbiology 07/08/24 10:51 Mucosa - Nasopharyngeal SARS-CoV-2, Influenza & RSV (PCR) - Final 07/02/24 14:15 Blood Culture (Wb) - Arm Left Blood Culture - Final No growth in 5 days. 07/02/24 13:05 Blood Culture (Wb) - Anticubital Right Blood Culture - Final No growth in 5 days. 07/02/24 14:09 Urine, Clean Catch Urine Culture - Final Presumptive E. coli 07/02/24 22:00 Mucosa - Nasopharyngeal Respiratory Panel (PCR) - Final 07/02/24 13:01 Mucosa - Nose SARS-CoV-2, Influenza & RSV (PCR) - Final ABG Data ABG results: ABG 07/08/24 09:15 Specimen Type ART Sample Site L Radial pH 7.37 Bicarbonate Actual 47.9 H Total CO2 > 50 Base Excess 23 H O2 Saturation 92 L O2 % 10.0 ABG pCO2 82.4 H* ABG pO2 69 L Ace Test Positive O2 Delivery Device Cannula Vent Mode Not entered Crit Call To/Read Back Yes Blood Gas Notified Whom brown Blood Gas Notified Time 09:16:49 Radiography Diagnostic Testing: Radiology Impression Chest X-Ray 07/08/24 08:30 IMPRESSION: Progressive CHF. Electronically Signed: Chevy Platt MD at 8:54 EST , Physical Exam Const Constitutional Narrative: morbidly obese, completely spread across the bed. Resp normal respiratory effort, no retractions, no use of accessory muscles and clear to auscultation bilaterally Cardio regular rate, regular rhythm, S1 normal heart sound and S2 normal heart sound GI GI Narrative: obese Extremity Extremity Narrative: edema throughout. Assessment & Plan Assessment/Plan (1) CHF (congestive heart failure): (2) Acute on chronic respiratory failure with hypoxemia: PLAN: Plan Acute on chronic combined respiratory failure * KEAGAN, CHF, OHS * pulse ox will be monitored, patient remains on BiPAP at night due to suspected sleep apnea * Patient requires volume ventilation and all other alternative therapies, including bilevel, have been considered and ruled out due to the severity of the disease state, weak breathing muscles and potential life-threatening condition including CO2 retention probability of acute exacerbation, patient requires ventilation to be used during the day as needed, addition to every night usage with facemask. * Consult pulmonary given lack of significant progress. Procalcitoin negative. Repeat cxr showing diffuse edema. COVID 19/influenza/RSV negative * Still on 10l/m of oxygen. Acute HFpEF * EF 60% * Continue furosemide gtt. UTI * E. coli. on cephalexin through the . class III obesity-complicates care, management, recovery, and prognosis VTE prophylaxis: LMWH Charges/Coding Visit Charges Inpatient E&M: 38631 Subs Hosp L2
--- NOTE | 2024-07-09 10:05 | CASEMGMT ---
Discharge Planning Updates sent to [facility] via [employer]. Sarah Vargas DC Planning Asst.
[2024-07-09] MEDS: Senna/Docusate Sodium 1 Tablet 2 TABLET PO ×2 (10:53→22:53)
[2024-07-09] MEDS: Cephalexin 500 MG Capsule PO ×2 (10:53→22:53)
[2024-07-09] MEDS: Potassium Chloride Oral Tablet 20 MEQ PO ×2 (10:53→16:01)
[2024-07-09] MEDS: Enoxaparin 40 MG/0.4 ML Syringe SC ×2 (10:53→22:53)
[2024-07-09] MEDS: AcetaZOLAMIDE 250 MG Tablet PO ×2 (11:46→22:53)
--- NOTE | 2024-07-09 12:43 | PN.CC_ITS ---
Assessment & Plan Assessment/Plan (1) Acute on chronic respiratory failure with hypoxemia: PLAN: Plan RECOMMENDATIONS: 1. Ongoing diuresis as tolerated by hemodynamics and renal function. Start Diamox today as ordered. 2. Wean supplemental oxygen to maintain saturations 88 to 92%. 3. Continue empiric PAP therapy with naps and nightly. 4. Start continuous pulse oximetry monitoring. 5. Encourage incentive spirometer use while in bed and mobilize patient as tolerated. IMPRESSIONS: 1. Acute on chronic combined respiratory failure The patient most likely has an underlying component of alveolar hypoventilation secondary to obesity, combined with likely sleep disordered breathing. She has never completed an outpatient polysomnogram. She presented to the hospital with shortness of breath and has been diuresed aggressively over the course of her hospital stay. However, she continues to require a significant amount of supplemental oxygen. Follow-up chest imaging again demonstrated stigmata concerning for congestive heart failure. Procalcitonin level was within normal limits. At this time, recommend continuous Lasix infusion as tolerated by hemodynamics and renal function, along with scheduled Diamox as ordered. Wean supplemental oxygen to maintain saturations 88 to 92%. Continue empiric PAP therapy with naps and nightly. 2. E. coli UTI/super morbid obesity Complicates care, management, recovery and prognosis. Continue antimicrobials to complete treatment course. This note was generated with [employer] dictation software. It may contain incorrect words, spelling, and punctuation that were not noted in checking the note before signing. Subjective Subjective The patient was seen and examined at the bedside this morning. Events from the last 24 hours have been reviewed. The patient is currently afebrile, hemodynamically stable and maintaining appropriate oxygen saturations on 8 L/min by nasal cannula. The patient was started on a continuous Lasix infusion last night. She is currently working with physical therapy. White blood cell count is normal. Creatinine is stable this morning. Objective Data Objective Data The patient's most recent lab work, culture data and imaging studies have all been personally reviewed. COVID, influenza and RSV PCR's were negative on July 08. Vital Signs: Vital Signs Temp Pulse Resp BP Pulse Ox O2 Del Method O2 Flow Rate 97.2 F L 95 18 115/60 94 High Flow 10 07/09/24 09:30 07/09/24 09:30 07/09/24 09:30 07/09/24 09:30 07/09/24 09:30 07/09/24 10:45 07/09/24 10:45 FiO2 45 07/09/24 03:35 Oxygen Flow Rate (L/min) 10 Oxygen Delivery Method High Flow Weight: 477 lb 0.015 oz Body Mass Index (BMI) 77.0 Intake & Output: Intake and Output for Last 24 Hours 07/07/24 07/08/24 07/09/24 23:59 23:59 23:59 Intake Total 810 / 810 240 / 240 Output Total 4775 / 5875 3500 / 4700 3000 / 3000 Balance -3965 / -5065 -3500 / -4700 -2760 / -2760 Lab / Micro Data Attestation: I reviewed the patient's lab results. 07/09/24 05:26 07/09/24 05:26 Labs: Laboratory Results - last 24 hr 07/09/24 05:26: WBC 6.4, RBC 4.29, Hgb 12.1, Hct 41.4, MCV 96.5, MCH 28.2, MCHC 29.2 L, RDW Std Deviation 70.6 H, RDW Coeff of Michaelle 19.9 H, Plt Count 184, MPV 11.8, Immature Gran % (Auto) 0.900, Neut % (Auto) 70.9 H, Lymph % (Auto) 12.4 L, [place] % (Auto) 11.0 H, Eos % (Auto) 4.2, Baso % (Auto) 0.6, Absolute Neuts (auto) 4.5, Absolute Lymphs (auto) 0.79 L, Nucleated RBC % 0, Anisocytosis 1+, Sodium 134 L, Potassium 3.6, Chloride 85 L, Carbon Dioxide > 45.0 H*, Anion Gap TNP, BUN 11, Creatinine 0.44 L, Estim Creat Clear Calc 291.63, Est GFR (MDRD) Af Amer 196, Est GFR (MDRD) Non-Af 162, BUN/Creatinine Ratio 25.2 H, Glucose 115 H, Calcium 9.4 Micro: Microbiology 07/08/24 10:51 Mucosa - Nasopharyngeal SARS-CoV-2, Influenza & RSV (PCR) - Final 07/02/24 14:15 Blood Culture (Wb) - Arm Left Blood Culture - Final No growth in 5 days. 07/02/24 13:05 Blood Culture (Wb) - Anticubital Right Blood Culture - Final No growth in 5 days. 07/02/24 14:09 Urine, Clean Catch Urine Culture - Final Presumptive E. coli 07/02/24 22:00 Mucosa - Nasopharyngeal Respiratory Panel (PCR) - Final 07/02/24 13:01 Mucosa - Nose SARS-CoV-2, Influenza & RSV (PCR) - Final Physical Exam Const alert and no apparent distress Constitutional Narrative: Super morbidly obese General Appearance: cooperative HEENT normocephalic and head/scalp atraumatic Eyes PERRL, EOMs intact bilaterally and conjunctivae normal Neck supple Neck Narrative: Large neck circumference with redundant soft tissue. General: trachea midline Chest inspection of chest normal Resp Resp Narrative: Distant breath sounds secondary to body habitus. Cardio regular rate and regular rhythm GI normal to inspection, nondistended, normoactive bowel sounds Extremity Extremity Narrative: Lower extremity lymphedema. Skin General Skin Exam: venous stasis and dermatitis Neuro CN's II-XII intact bilaterally, moves all extremities and no focal motor deficits Psych cooperative and affect normal Charges/Coding Visit Charges Inpatient E&M: 43245 Subs Hosp L2
--- NOTE | 2024-07-09 14:52 | CASEMGMT ---
SW was informed patient wanted to talk with SW. SW met with patient. Patient asked if SW could help her apply for Social Security. SW let her know SW can give her information about how to apply. Patient was fine with this. SW then printed out a disability starter kit and How to Apply from Social Security website. SW gave this information to patient. Aissatou Tineo MSW DONG
--- NOTE | 2024-07-09 15:15 | CHAPLAIN ---
Type of Pastoral Visit ___ Initial Visit _x__ Follow-up Visit ___ On-call Visit ___ General Patient Visit ___ Spiritual Assessment ___ Family Conference ___ Bereavement ___ Rapid Response ___ Code Blue ___ Other (describe below) Pastoral Care Referral From _x__ Patient ___ Family ___ Nurse ___ Physician ___ Gambling Floor Supervisor ___ Scrip Clerk ___ Other (describe below) Sacrament/Intervention ___ Active listening ___ Anointing ___ Adventism ___ Bereavement ___ Communion ___ Dara exploration ___ ___ Life review ___ Prayer ___ Reconciliation ___ Sacrament of Sick _x__ Supportive presence ___ Wedding ___ Other (describe below) Pastoral Comments patient asked to see the SW for a question that she has at this time; this reel assembler went to ask SW for a visit here
[2024-07-09] MEDS: Furosemide 500 MG in Empty Viaflex 50 mL 1 EACH CONT INF (16:38)
[2024-07-09] MEDS: MELATONIN 3 MG TABLET PO (22:53)
[2024-07-10] VITALS (11 sets, daily range): BP systolic 104–146; BP diastolic 71–87; PULSE 86–104; RESP 14–20; TEMP 36.4–36.9; O2SAT 91–95; BMI 74.4
[2024-07-10] MEDS: 0.9% Saline Lock 10 ML Syringe IV ×2 (06:21→21:31)
[2024-07-10 06:42] LABS: Anion Gap 9 (5-15); BUN 15 mg/dL (7-18); BUN/Creat Ratio 27.7 RATIO (10-20); Calcium,Total 10.2 mg/dL (8.5-10.1); Chloride 85 mmol/L (98-107); Creatinine, Serum 0.54 mg/dL (0.55-1.02); EST Glomerular Filtration Rate 126 mL/min (>60); Est Glom Filt Rate - Afr Amer 152 mL/min (>60); Estimated Creatinine Clearance 231.97 ml/min; Glucose 116 mg/dL (74-106); Potassium 3.2 mmol/L (3.5-5.1); Sodium Level 134 mmol/L (136-145)
--- NOTE | 2024-07-10 07:55 | PN.HOSP_ITS ---
Reason for Visit Reason for Visit: Diagnoses Heart failure, unspecified (07/02/24) Acute and chronic respiratory failure with hypoxia (07/02/24) Hypoxemia (07/02/24) Subjective Subjective Feeling well. Oxygen requirements down to 7liters. Objective Data Objective Data Vital Signs: Vital Signs Temp Pulse Resp BP Pulse Ox O2 Del Method O2 Flow Rate 36.8 C 88 18 113/73 95 High Flow 7 07/10/24 04:45 07/10/24 04:45 07/10/24 04:45 07/10/24 04:45 07/10/24 04:45 07/10/24 05:10 07/10/24 05:10 FiO2 45 07/10/24 02:56 Oxygen Flow Rate (L/min) 7 Oxygen Delivery Method High Flow Weight: 209.106 kg Body Mass Index (BMI) 74.4 Intake & Output: Intake and Output for Last 24 Hours 07/08/24 07/09/24 07/10/24 23:59 23:59 23:59 Intake Total 623.07 / 883.07 380 / 380 Output Total 3500 / 4700 5025 / 5825 1999 Balance -3500 / -4700 -4401.93 / -4941.93 -1620 / -1620 Lab / Micro Data 07/09/24 05:26 07/10/24 05:52 Labs: Laboratory Results - last 24 hr 07/10/24 05:52: Sodium 134 L, Potassium 3.2 L, Chloride 85 L, Carbon Dioxide 40.0 H, Anion Gap 9, BUN 15, Creatinine 0.54 L, Estim Creat Clear Calc 231.97, Est GFR (MDRD) Af Amer 152, Est GFR (MDRD) Non-Af 126, BUN/Creatinine Ratio 27.7 H, Glucose 116 H, Calcium 10.2 H Micro: Microbiology 07/08/24 10:51 Mucosa - Nasopharyngeal SARS-CoV-2, Influenza & RSV (PCR) - Final 07/02/24 14:15 Blood Culture (Wb) - Arm Left Blood Culture - Final No growth in 5 days. 07/02/24 13:05 Blood Culture (Wb) - Anticubital Right Blood Culture - Final No growth in 5 days. 07/02/24 14:09 Urine, Clean Catch Urine Culture - Final Presumptive E. coli 07/02/24 22:00 Mucosa - Nasopharyngeal Respiratory Panel (PCR) - Final 07/02/24 13:01 Mucosa - Nose SARS-CoV-2, Influenza & RSV (PCR) - Final Physical Exam Const alert and no apparent distress Constitutional Narrative: no respiratory distress. no conversational dyspnea. afebrile. morbidly obese. HEENT head/scalp atraumatic and moist oral mucous membranes Neck no lymphadenopathy and supple Resp normal respiratory effort, no retractions, no use of accessory muscles and clear to auscultation bilaterally Cardio regular rate, regular rhythm, S1 normal heart sound and S2 normal heart sound GI normal to inspection, nondistended, normoactive bowel sounds and soft to palpation Extremity Extremity Narrative: very large LE with ongoing edema, but overall improving. Assessment & Plan Assessment/Plan (1) CHF (congestive heart failure): (2) Acute on chronic respiratory failure with hypoxemia: PLAN: Plan Acute on chronic combined respiratory failure * KEAGAN, CHF, OHS * pulse ox will be monitored, patient remains on BiPAP at night due to suspected sleep apnea * Patient requires volume ventilation and all other alternative therapies, including bilevel, have been considered and ruled out due to the severity of the disease state, weak breathing muscles and potential life-threatening condition including CO2 retention probability of acute exacerbation, patient requires ventilation to be used during the day as needed, addition to every night usage with facemask. * Consult pulmonary given lack of significant progress. Procalcitoin negative. Repeat cxr showing diffuse edema. COVID 19/influenza/RSV negative * Weaned down to 7l Acute HFpEF * EF 60% * Continue furosemide gtt. Hypokalemia * 2/2 diuresis * continue replacement. Will increase KCl from 20 to 40 BID. UTI * E. coli. on cephalexin through the . class III obesity-complicates care, management, recovery, and prognosis VTE prophylaxis: LMWH Charges/Coding Visit Charges Inpatient E&M: 85827 Subs Hosp L2
[2024-07-10] MEDS: Potassium Chloride Oral Tablet 20 MEQ 40 MEQ PO ×2 (08:28→17:39)
[2024-07-10] MEDS: Enoxaparin 40 MG/0.4 ML Syringe SC ×2 (10:00→21:32)
[2024-07-10] MEDS: Cephalexin 500 MG Capsule PO (10:00)
[2024-07-10] MEDS: Senna/Docusate Sodium 1 Tablet 2 TABLET PO ×2 (10:00→21:32)
[2024-07-10] MEDS: AcetaZOLAMIDE 250 MG Tablet PO ×2 (10:00→21:33)
--- NOTE | 2024-07-10 10:08 | CASEMGMT ---
Addendum entered by Sarah Vargas 07/13/24 10:23: Updated sent to [facility]. Sarah Vargas DC Planning Asst. Original Note: Discharge Planning Updates sent to [facility] with request that precert be submitted. Asked for wknd phone/fax. Sarah Vargas DC Planning Asst.
--- NOTE | 2024-07-10 10:32 | PCM.PN.INT ---
Assessment & Plan Assessment/Plan (1) Acute on chronic respiratory failure with hypoxemia: PLAN: Plan RECOMMENDATIONS: 1. Ongoing diuresis as tolerated by hemodynamics and renal function. 2. Wean supplemental oxygen to maintain saturations 88 to 92%. 3. Continue empiric PAP therapy with naps and nightly. 4. Encourage incentive spirometer use while in bed and mobilize patient as tolerated. IMPRESSIONS: 1. Acute on chronic combined respiratory failure The patient most likely has an underlying component of alveolar hypoventilation secondary to obesity, combined with likely sleep disordered breathing. She has never completed an outpatient polysomnogram. She presented to the hospital with shortness of breath and has been diuresed aggressively over the course of her hospital stay. However, she continues to require a significant amount of supplemental oxygen. Follow-up chest imaging again demonstrated stigmata concerning for congestive heart failure. Procalcitonin level was within normal limits. After being transition to a continuous Lasix infusion, the patient appears to be slowly improving from a respiratory perspective. Wean supplemental oxygen to maintain saturations 88 to 92%. Continue empiric PAP therapy with naps and nightly. 2. E. coli UTI/super morbid obesity Complicates care, management, recovery and prognosis. Continue antimicrobials to complete treatment course. This note was generated with [employer] dictation software. It may contain incorrect words, spelling, and punctuation that were not noted in checking the note before signing. Subjective Subjective The patient was seen and examined at the bedside this morning. Events from the last 24 hours have been reviewed. The patient is currently afebrile, hemodynamically stable and maintaining appropriate oxygen saturations on 6 L/min via nasal cannula. The patient remains on a continuous Lasix infusion. Potassium is low at 3.2 with a bicarbonate of 40 and normal creatinine. The patient has remained mostly compliant with nocturnal PAP therapy. Objective Data Objective Data The patient's most recent lab work, culture data and imaging studies have all been personally reviewed. COVID, influenza and RSV PCR's were negative on July 08. Vital Signs: Vital Signs Temp Pulse Resp BP Pulse Ox O2 Del Method O2 Flow Rate 98.4 F 102 H 16 104/73 93 High Flow 7 07/10/24 08:25 07/10/24 08:25 07/10/24 08:25 07/10/24 08:25 07/10/24 08:25 07/10/24 08:42 07/10/24 08:42 FiO2 45 07/10/24 02:56 Oxygen Flow Rate (L/min) 7 Oxygen Delivery Method High Flow Weight: 460 lb 15.997 oz Body Mass Index (BMI) 74.4 Intake & Output: Intake and Output for Last 24 Hours 07/08/24 07/09/24 07/10/24 23:59 23:59 23:59 Intake Total 623.07 / 883.07 380 / 380 Output Total 3500 / 4700 5025 / 5825 2680 / 2680 Balance -3500 / -4700 -4401.93 / -4941.93 -2300 / -2300 Lab / Micro Data Attestation: I reviewed the patient's lab results. 07/09/24 05:26 07/10/24 05:52 Labs: Laboratory Results - last 24 hr 07/10/24 05:52: Sodium 134 L, Potassium 3.2 L, Chloride 85 L, Carbon Dioxide 40.0 H, Anion Gap 9, BUN 15, Creatinine 0.54 L, Estim Creat Clear Calc 231.97, Est GFR (MDRD) Af Amer 152, Est GFR (MDRD) Non-Af 126, BUN/Creatinine Ratio 27.7 H, Glucose 116 H, Calcium 10.2 H Micro: Microbiology 07/08/24 10:51 Mucosa - Nasopharyngeal SARS-CoV-2, Influenza & RSV (PCR) - Final 07/02/24 14:15 Blood Culture (Wb) - Arm Left Blood Culture - Final No growth in 5 days. 07/02/24 13:05 Blood Culture (Wb) - Anticubital Right Blood Culture - Final No growth in 5 days. 07/02/24 14:09 Urine, Clean Catch Urine Culture - Final Presumptive E. coli 07/02/24 22:00 Mucosa - Nasopharyngeal Respiratory Panel (PCR) - Final 07/02/24 13:01 Mucosa - Nose SARS-CoV-2, Influenza & RSV (PCR) - Final Physical Exam Const alert and no apparent distress Constitutional Narrative: Super morbidly obese General Appearance: cooperative HEENT normocephalic and head/scalp atraumatic Eyes PERRL, EOMs intact bilaterally and conjunctivae normal Neck supple Neck Narrative: Large neck circumference with redundant soft tissue. General: trachea midline Chest inspection of chest normal Resp Resp Narrative: Distant breath sounds secondary to body habitus. Cardio regular rate and regular rhythm GI normal to inspection, nondistended, normoactive bowel sounds Extremity Extremity Narrative: Lower extremity lymphedema. Skin General Skin Exam: venous stasis and dermatitis Neuro CN's II-XII intact bilaterally, moves all extremities and no focal motor deficits Psych cooperative and affect normal Charges/Coding Visit Charges Inpatient E&M: 34603 Subs Hosp L2
--- NOTE | 2024-07-10 10:57 | NURSING ---
Entered pt room to see if O2 can be titrated down. 45 min prior it was at 7L. At this time it was already down to 6 L. While awake pt is still sat 95-96% O@ turned down to 5L. Will continue to monitor.
--- NOTE | 2024-07-10 11:52 | NURSING ---
Per Dr Baptiste titrate o2 to SPO2 88-92%. SPO2 was 91% on 5 L while sleeping. Turned down to 4L at this time. will continue to monitor.
[2024-07-10] MEDS: Albuterol 2.5 MG/3 ML VIAL.NEB. INHALATION (16:34)
[2024-07-10] MEDS: MELATONIN 3 MG TABLET PO (23:31)
[2024-07-11] VITALS (10 sets, daily range): BP systolic 104–132; BP diastolic 62–85; PULSE 90–100; RESP 14–22; TEMP 36.3–36.9; O2SAT 90–95; BMI 74.4
[2024-07-11 07:38] LABS: Anion Gap 4 (5-15); BUN 20 mg/dL (7-18); BUN/Creat Ratio 32.1 RATIO (10-20); Calcium,Total 10.5 mg/dL (8.5-10.1); Chloride 88 mmol/L (98-107); Creatinine, Serum 0.62 mg/dL (0.55-1.02); EST Glomerular Filtration Rate 107 mL/min (>60); Est Glom Filt Rate - Afr Amer 130 mL/min (>60); Estimated Creatinine Clearance 202.04 ml/min; Glucose 112 mg/dL (74-106); Potassium 3.4 mmol/L (3.5-5.1); Sodium Level 136 mmol/L (136-145)
[2024-07-11] MEDS: Potassium Chloride Oral Tablet 20 MEQ 40 MEQ PO ×2 (08:50→17:09)
[2024-07-11] MEDS: Enoxaparin 40 MG/0.4 ML Syringe SC ×2 (08:51→20:36)
[2024-07-11] MEDS: AcetaZOLAMIDE 250 MG Tablet PO ×2 (08:51→20:37)
[2024-07-11] MEDS: Senna/Docusate Sodium 1 Tablet 2 TABLET PO ×2 (08:52→20:36)
--- NOTE | 2024-07-11 10:52 | PN.HOSP_ITS ---
Reason for Visit Reason for Visit: Diagnoses Heart failure, unspecified (07/02/24) Acute and chronic respiratory failure with hypoxia (07/02/24) Hypoxemia (07/02/24) Subjective Subjective Feels well. No new complaints. Oxygen able to be weaned down. Objective Data Objective Data Vital Signs: Vital Signs Temp Pulse Resp BP Pulse Ox O2 Del Method O2 Flow Rate 36.4 C L 90 18 111/66 94 Nasal Cannula 4 07/11/24 05:00 07/11/24 05:00 07/11/24 05:00 07/11/24 05:00 07/11/24 06:59 07/11/24 07:50 07/11/24 07:50 FiO2 35 07/11/24 03:15 Oxygen Flow Rate (L/min) 4 Oxygen Delivery Method Nasal Cannula Weight: 209.106 kg Body Mass Index (BMI) 74.4 Intake & Output: Intake and Output for Last 24 Hours 07/09/24 07/10/24 07/11/24 23:59 23:59 23:59 Intake Total 623.07 / 883.07 980 / 1360 380 / 380 Output Total 5025 / 5825 3830 / 4290 1160 / 1160 Balance -4401.93 / -4941.93 -2850 / -2930 -780 / -780 Lab / Micro Data 07/09/24 05:26 07/11/24 06:32 Labs: Laboratory Results - last 24 hr 07/11/24 06:32: Sodium 136, Potassium 3.4 L, Chloride 88 L, Carbon Dioxide 44.0 H, Anion Gap 4 L, BUN 20 H, Creatinine 0.62, Estim Creat Clear Calc 202.04, Est GFR (MDRD) Af Amer 130, Est GFR (MDRD) Non-Af 107, BUN/Creatinine Ratio 32.1 H, Glucose 112 H, Calcium 10.5 H Micro: Microbiology 07/08/24 10:51 Mucosa - Nasopharyngeal SARS-CoV-2, Influenza & RSV (PCR) - Final 07/02/24 14:15 Blood Culture (Wb) - Arm Left Blood Culture - Final No growth in 5 days. 07/02/24 13:05 Blood Culture (Wb) - Anticubital Right Blood Culture - Final No growth in 5 days. 07/02/24 14:09 Urine, Clean Catch Urine Culture - Final Presumptive E. coli 07/02/24 22:00 Mucosa - Nasopharyngeal Respiratory Panel (PCR) - Final 07/02/24 13:01 Mucosa - Nose SARS-CoV-2, Influenza & RSV (PCR) - Final Physical Exam Const alert and no apparent distress HEENT head/scalp atraumatic and moist oral mucous membranes Resp normal respiratory effort and no retractions Extremity General Extremity: edema bilateral lower extremity Details: moderate Assessment & Plan Assessment/Plan (1) CHF (congestive heart failure): (2) Acute on chronic respiratory failure with hypoxemia: PLAN: Plan Acute on chronic combined respiratory failure * KEAGAN, CHF, OHS * pulse ox will be monitored, patient remains on BiPAP at night due to suspected sleep apnea * Patient requires volume ventilation and all other alternative therapies, including bilevel, have been considered and ruled out due to the severity of the disease state, weak breathing muscles and potential life-threatening condition including CO2 retention probability of acute exacerbation, patient requires ventilation to be used during the day as needed, addition to every night usage with facemask. * Consult pulmonary given lack of significant progress. Procalcitoin negative. Repeat cxr showing diffuse edema. COVID 19/influenza/RSV negative * Weaned down to 7l Acute HFpEF * EF 60% * Continue furosemide gtt. Hypokalemia * 2/2 diuresis * continue replacement. Will increase KCl from 20 to 40 BID. UTI * E. coli. on cephalexin through the . class III obesity-complicates care, management, recovery, and prognosis VTE prophylaxis: LMWH Charges/Coding Visit Charges Inpatient E&M: 85811 Subs Hosp L2
--- NOTE | 2024-07-11 18:34 | PN.CC_ITS ---
Objective Data Objective Data Vital Signs: Vital Signs Last response 3 Temperature 36.3 C L 07/11/24 15:42 Temperature Source Oral 07/11/24 15:42 Pulse Rate 92 07/11/24 15:42 Pulse Strength Weak (1+) 07/11/24 09:49 Respiratory Rate 18 07/11/24 15:42 Respiratory Effort Non-Labored, Short of Breath 07/11/24 15:06 Respiratory Depth Shallow 07/11/24 15:06 Respiratory Pattern Tachypnea 07/11/24 15:06 Blood Pressure 112/71 07/11/24 15:42 Blood Pressure Mean 84 07/11/24 15:42 Blood Pressure Source Monitor 07/11/24 15:42 Blood Pressure Position Semi-Fowlers 07/11/24 15:42 Blood Pressure Location Right Forearm 07/11/24 15:42 Pulse Ox 95 07/11/24 15:42 Oxygen Delivery Method High Flow 07/11/24 15:42 Oxygen Flow Rate (L/min) 5 07/11/24 15:42 Fraction of Inspired Oxygen (FIO2) 35 07/11/24 03:15 I&O: I&O Last 24 Hours 3 07/10/24 07/11/24 07/11/24 23:59 11:59 23:59 Intake Total 600 / 1360 380 / 1260 880 / 1260 Output Total 1150 / 4290 1160 / 2315 1155 / 2315 Balance -550 / -2930 -780 / -1055 -275 / -1055 I&O: Total Stay 3 07/02/24 12:34 thru 07/11/24 18:00 Intake Total 7493.07 Output Total 41483 Balance -14502.93 Current Meds Ordered / Administered: Current meds ordered / Administered 3 Generic Name Dose Route Start Last Admin Trade Name Freq PRN Reason Stop Dose Admin Acetaminophen 650 mg 07/02/24 18:14 07/08/24 06:11 Acetaminophen 325 Mg Tablet PO 650 mg Q6H PRN PRN Administration Pain 1-10 Or Fever >100.7 Acetazolamide 250 mg 07/09/24 10:20 07/11/24 08:51 Acetazolamide 250 Mg Tablet PO 250 mg BID MAGGI Administration Albuterol Sulfate 2.5 mg 07/02/24 18:14 07/10/24 16:34 Albuterol 2.5 Mg/3 Ml Vial.Neb. INHALATION 2.5 mg Q2H PRN PRN Administration SOB &/OR WHEEZING Enoxaparin Sodium 40 mg 07/02/24 22:00 07/11/24 08:51 Enoxaparin 40 Mg/0.4 Ml Syringe SC 40 mg BID MAGGI Administration Furosemide 500 mg/ N/A 50 mls @ 1 mls/hr 07/08/24 16:45 07/09/24 16:38 CONT INF 10 mg/hr .Q50H MAGGI 1 mls/hr Administration 10 MG/HR Melatonin 3 mg 07/02/24 18:14 07/10/24 23:31 Melatonin 3 Mg Tablet PO 3 mg QHS PRN PRN Administration INSOMNIA Ondansetron HCl 4 mg 07/02/24 18:14 07/07/24 10:04 Ondansetron 4 Mg/2 Ml Vial IV 4 mg Q8H PRN PRN Administration NAUSEA/VOMITING Potassium Chloride 40 meq 07/10/24 08:00 07/11/24 17:09 Potassium Chloride Oral Tablet 20 Meq PO 40 meq BIDCM MAGGI Administration Senna/Docusate Sodium 2 tablet 07/02/24 22:00 07/11/24 08:52 Senna/Docusate Sodium 1 Tablet PO 2 tablet BID MAGGI Administration Sodium Chloride 10 - 40 ml 07/02/24 18:33 07/10/24 21:31 0.9% Saline Lock 10 Ml Syringe IV 10 ml UD PRN Administration SALINE FLUSH Lab / Micro Data 07/09/24 05:26 07/11/24 06:32 Labs: Laboratory Results - last 24 hr 07/11/24 06:32: Sodium 136, Potassium 3.4 L, Chloride 88 L, Carbon Dioxide 44.0 H, Anion Gap 4 L, BUN 20 H, Creatinine 0.62, Estim Creat Clear Calc 202.04, Est GFR (MDRD) Af Amer 130, Est GFR (MDRD) Non-Af 107, BUN/Creatinine Ratio 32.1 H, Glucose 112 H, Calcium 10.5 H Assessment and Plan . Assessment and plan: (1) Acute on chronic respiratory failure with hypoxemia: Plan -diurese as tolerated following serum bicarb to avoid excessive alkalinization -bipap with sleep and prn -BD therapy The entirety of this encounter was done via Telemedicine Physical Exam Narrative Gen: NAD; A&O x 3 ENT: sclera anicteric; moist conjunctiva and mucous membranes CV: rrr, nl s1 and s2, no mrg; pulses 2+/symmetric and normal cap refill Lungs: CTAB, limited effort, no use of accessory muscles Abdomen: Soft, nt/nd; normal bowel sounds Ext: no clubbing, cyanosis; + edema Neuro: no focal motor or sensory deficits Psych: mood/affect appropriate for situation Subjective Subjective Wore bipap with sleep overnight. Breathing comfortably at the time of my exam.
[2024-07-11] MEDS: 0.9% Saline Lock 10 ML Syringe IV (20:37)
[2024-07-11] MEDS: Furosemide 500 MG in Empty Viaflex 50 mL 1 EACH CONT INF (20:40)
[2024-07-11] MEDS: MELATONIN 3 MG TABLET PO (23:26)
[2024-07-12] VITALS (15 sets, daily range): BP systolic 76–127; BP diastolic 44–83; PULSE 80–93; RESP 12–23; TEMP 36.1–36.8; O2SAT 92–99; BMI 75.7; BMI 72.9
[2024-07-12 07:07] LABS: Anion Gap 7 (5-15); BUN 27 mg/dL (7-18); BUN/Creat Ratio 42.7 RATIO (10-20); Calcium,Total 10.2 mg/dL (8.5-10.1); Chloride 88 mmol/L (98-107); Creatinine, Serum 0.63 mg/dL (0.55-1.02); EST Glomerular Filtration Rate 105 mL/min (>60); Est Glom Filt Rate - Afr Amer 128 mL/min (>60); Glucose 110 mg/dL (74-106); Sodium Level 135 mmol/L (136-145)
--- NOTE | 2024-07-12 07:42 | PN.HOSP_ITS ---
Reason for Visit Reason for Visit: Diagnoses Heart failure, unspecified (07/02/24) Acute and chronic respiratory failure with hypoxia (07/02/24) Hypoxemia (07/02/24) Subjective Subjective Breathing well. Oxygen is fluctuated between 4 to 5 L/min. Feels that her lower extremity edema is improving. Patient expressed concern about going back to her facility and requesting 2 more days here in the hospital despite being told several days ago that the plan was for her to go back to the same facility once her oxygen requirements were improved. Objective Data Objective Data Vital Signs: Vital Signs Temp Pulse Resp BP Pulse Ox O2 Del Method O2 Flow Rate 36.7 C 89 23 H 127/83 H 93 Bi-pap 5 07/12/24 03:30 07/12/24 03:31 07/12/24 03:31 07/12/24 03:30 07/12/24 03:31 07/12/24 03:37 07/11/24 20:55 FiO2 35 07/12/24 03:31 Oxygen Flow Rate (L/min) 5 Oxygen Delivery Method Bi-pap Weight: 212.8 kg Body Mass Index (BMI) 75.7 Intake & Output: Intake and Output for Last 24 Hours 07/10/24 07/11/24 07/12/24 23:59 23:59 23:59 Intake Total 980 / 1360 1790 / 1790 240 / 240 Output Total 3830 / 4290 2965 / 2965 775 / 775 Balance -2850 / -2930 -1175 / -1175 -535 / -535 Lab / Micro Data 07/09/24 05:26 07/12/24 05:20 Labs: Laboratory Results - last 24 hr 07/12/24 05:20: Sodium 135 L, Potassium 3.0 L, Chloride 88 L, Carbon Dioxide 40.0 H, Anion Gap 7, BUN 27 H, Creatinine 0.63, Estim Creat Clear Calc 201.30, Est GFR (MDRD) Af Amer 128, Est GFR (MDRD) Non-Af 105, BUN/Creatinine Ratio 42.7 H, Glucose 110 H, Calcium 10.2 H Micro: Microbiology 07/08/24 10:51 Mucosa - Nasopharyngeal SARS-CoV-2, Influenza & RSV (PCR) - Final 07/02/24 14:15 Blood Culture (Wb) - Arm Left Blood Culture - Final No growth in 5 days. 07/02/24 13:05 Blood Culture (Wb) - Anticubital Right Blood Culture - Final No growth in 5 days. 07/02/24 14:09 Urine, Clean Catch Urine Culture - Final Presumptive E. coli 07/02/24 22:00 Mucosa - Nasopharyngeal Respiratory Panel (PCR) - Final 07/02/24 13:01 Mucosa - Nose SARS-CoV-2, Influenza & RSV (PCR) - Final Physical Exam Const alert and no apparent distress Constitutional Narrative: No respiratory stress. No conversational dyspnea. Resp normal respiratory effort, no retractions, no use of accessory muscles and clear to auscultation bilaterally Cardio regular rate, regular rhythm, S1 normal heart sound and S2 normal heart sound GI normal to inspection, nondistended, normoactive bowel sounds, soft to palpation, non-tender and non-distended Extremity normal to inspection Assessment & Plan Assessment/Plan (1) CHF (congestive heart failure): (2) Acute on chronic respiratory failure with hypoxemia: PLAN: Plan Acute on chronic combined respiratory failure * KEAGAN, CHF, OHS * pulse ox will be monitored, patient remains on BiPAP at night due to suspected sleep apnea * Patient requires volume ventilation and all other alternative therapies, including bilevel, have been considered and ruled out due to the severity of the disease state, weak breathing muscles and potential life-threatening condition including CO2 retention probability of acute exacerbation, patient requires ventilation to be used during the day as needed, addition to every night usage with facemask. * Weaned down to 5 liters. Acute HFpEF * EF 60% * Continue furosemide gtt. * add lisinopril Hypokalemia * ongoing 2/2 diuresis * continue replacement. Will increase KCl from 40 BID to TID. UTI * E. coli. * Antibiotics completed. class III obesity-complicates care, management, recovery, and prognosis VTE prophylaxis: LMWH Disposition: to [facility] pending insurance precertification. Though the patient now is expressing apprehension about returning there. Will have case management to address that issue. Overall, the patient is medically ready for discharge. Will further try to optimize her care with the furosemide drip but that could be switched over to oral when she is able to be discharged. Charges/Coding Visit Charges Inpatient E&M: 58568 Subs Hosp L2
[2024-07-12] MEDS: Potassium Chloride Oral Tablet 20 MEQ 40 MEQ PO ×3 (09:12→20:53)
[2024-07-12] MEDS: AcetaZOLAMIDE 250 MG Tablet PO ×2 (09:13→20:53)
[2024-07-12] MEDS: Enoxaparin 40 MG/0.4 ML Syringe SC ×2 (09:13→20:52)
[2024-07-12] MEDS: Senna/Docusate Sodium 1 Tablet 2 TABLET PO (09:14)
[2024-07-12] MEDS: Nystatin Powder 15gm Bottle 1 APPLIC TOPICAL ×2 (09:14→20:53)
[2024-07-12] MEDS: Lisinopril 10 MG Tablet PO (09:29)
[2024-07-12] MEDS: 0.9% Normal Saline (500mL Bag) 500 ML 999 ML IV ×3 (16:40→20:50)
--- NOTE | 2024-07-12 17:48 | PN.CC_ITS ---
Objective Data Objective Data Vital Signs: Vital Signs Last response 3 Temperature 36.7 C 07/12/24 17:10 Temperature Source Temporal 07/12/24 17:10 Pulse Rate 87 07/12/24 17:10 Pulse Strength Weak (1+) 07/11/24 09:49 Respiratory Rate 16 07/12/24 17:10 Respiratory Effort Normal, Non-Labored 07/12/24 16:04 Respiratory Depth Normal 07/12/24 16:04 Respiratory Pattern Tachypnea 07/12/24 16:04 Blood Pressure 76/62 L 07/12/24 17:10 Blood Pressure Mean 66 07/12/24 17:10 Blood Pressure Source Monitor 07/12/24 17:10 Blood Pressure Position Semi-Fowlers 07/12/24 17:10 Blood Pressure Location Right Forearm 07/12/24 17:10 Pulse Ox 94 07/12/24 17:10 Oxygen Delivery Method Nasal Cannula 07/12/24 17:10 Oxygen Flow Rate (L/min) 5 07/12/24 17:10 Fraction of Inspired Oxygen (FIO2) 35 07/12/24 03:31 I&O: I&O Last 24 Hours 3 07/11/24 07/12/24 07/12/24 23:59 11:59 23:59 Intake Total 1410 / 1790 240 / 1160.47 920.47 / 1160.47 Output Total 1805 / 2965 775 / 1400 625 / 1400 Balance -395 / -1175 -535 / -239.53 295.47 / -239.53 I&O: Total Stay 3 07/02/24 12:34 thru 07/12/24 17:13 Intake Total 9183.54 Output Total 66219 Balance -02857.46 Current Meds Ordered / Administered: Current meds ordered / Administered 3 Generic Name Dose Route Start Last Admin Trade Name Freq PRN Reason Stop Dose Admin Acetaminophen 650 mg 07/02/24 18:14 07/08/24 06:11 Acetaminophen 325 Mg Tablet PO 650 mg Q6H PRN PRN Administration Pain 1-10 Or Fever >100.7 Acetazolamide 250 mg 07/09/24 10:20 07/12/24 09:13 Acetazolamide 250 Mg Tablet PO 250 mg BID MAGGI Administration Albuterol Sulfate 2.5 mg 07/02/24 18:14 07/10/24 16:34 Albuterol 2.5 Mg/3 Ml Vial.Neb. INHALATION 2.5 mg Q2H PRN PRN Administration SOB &/OR WHEEZING Enoxaparin Sodium 40 mg 07/02/24 22:00 07/12/24 09:13 Enoxaparin 40 Mg/0.4 Ml Syringe SC 40 mg BID MAGGI Administration Sodium Chloride 500 mls @ 999 mls/hr 07/12/24 17:28 IV 07/12/24 17:58 Q30M ONE Lisinopril 10 mg 07/12/24 10:00 07/12/24 09:29 Lisinopril 10 Mg Tablet PO 10 mg DAILY MAGGI Administration Protocol Melatonin 3 mg 07/02/24 18:14 07/11/24 23:26 Melatonin 3 Mg Tablet PO 3 mg QHS PRN PRN Administration INSOMNIA Nystatin 1 applic 07/12/24 10:00 07/12/24 09:14 Nystatin Powder 15gm Bottle TOPICAL 1 applic BID MAGGI Administration Protocol Ondansetron HCl 4 mg 07/02/24 18:14 07/07/24 10:04 Ondansetron 4 Mg/2 Ml Vial IV 4 mg Q8H PRN PRN Administration NAUSEA/VOMITING Potassium Chloride 40 meq 07/12/24 14:00 07/12/24 15:36 Potassium Chloride Oral Tablet 20 Meq PO 40 meq TID MAGGI Administration Senna/Docusate Sodium 2 tablet 07/02/24 22:00 07/12/24 09:14 Senna/Docusate Sodium 1 Tablet PO 2 tablet BID MAGGI Administration Sodium Chloride 10 - 40 ml 07/02/24 18:33 07/11/24 20:37 0.9% Saline Lock 10 Ml Syringe IV 10 ml UD PRN Administration SALINE FLUSH Lab / Micro Data 07/09/24 05:26 07/12/24 05:20 Labs: Laboratory Results - last 24 hr 07/12/24 05:20: Sodium 135 L, Potassium 3.0 L, Chloride 88 L, Carbon Dioxide 40.0 H, Anion Gap 7, BUN 27 H, Creatinine 0.63, Estim Creat Clear Calc 201.30, Est GFR (MDRD) Af Amer 128, Est GFR (MDRD) Non-Af 105, BUN/Creatinine Ratio 42.7 H, Glucose 110 H, Calcium 10.2 H Assessment and Plan . Assessment and plan: (1) Acute on chronic respiratory failure with hypoxemia: Plan -diurese as tolerated following serum bicarb to avoid excessive alkalinization -bipap with sleep and prn -BD therapy The entirety of this encounter was done via Telemedicine Physical Exam Narrative Gen: NAD; A&O x 3 ENT: sclera anicteric; moist conjunctiva and mucous membranes CV: rrr, nl s1 and s2, no mrg; pulses 2+/symmetric and normal cap refill Lungs: CTAB, limited effort, no use of accessory muscles Abdomen: Soft, nt/nd; normal bowel sounds Ext: no clubbing, cyanosis; + edema Neuro: no focal motor or sensory deficits Psych: mood/affect appropriate for situation Subjective Subjective Breathing well. Oxygen is fluctuated between 4 to 5 L/min. Feels that her lower extremity edema is improving. Patient expressed concern about going back to her facility and requesting 2 more days here in the hospital despite being told several days ago that the plan was for her to go back to the same facility once her oxygen requirements were improved. She has done some PT. Still feels a little shaky.
[2024-07-12] MEDS: 0.9% Saline Lock 10 ML Syringe IV (19:58)
[2024-07-12] MEDS: Ondansetron 4 MG/2 ML Vial IV (19:58)
--- NOTE | 2024-07-12 20:21 | PCM.HOSP.N ---
Hospitalist Note Patient had noted decreased BPs per discussion with RN and had been ordered lasix drip to be held and small IVF bolus. Currently BP still mildly decreased. Will given additional small IVF bolus and if not improving may need to transition back to the ICU as loathe to given notable fluids given her HF exacerbation presentation initially. Discussed with RN importance of continuation of BIPAP q HS and PRN with naps.
[2024-07-13] VITALS (17 sets, daily range): BP systolic 95–124; BP diastolic 48–78; PULSE 80–92; RESP 12–20; TEMP 36.4–36.8; O2SAT 93–99; BMI 73.6
[2024-07-13] MEDS: 0.9% Normal Saline (250mL Bag) 250 ML 999 ML IV (00:46)
--- NOTE | 2024-07-13 04:17 | EKG12_ITS ---
Test Reason : RHYTHM CHANGE Blood Pressure : */* mmHG Vent. Rate : 88 BPM Atrial Rate : 88 BPM P-R Int : 162 ms QRS Dur : 100 ms QT Int : 382 ms P-R-T Axes : 43 16 20 degrees QTcB Int : 462 ms Normal sinus rhythm Normal ECG When compared with ECG of 02-Jul-2024 12:58, No significant change was found Confirmed by KORY CARRASQUILLO, MARIEL ([id number]), pictures editor FINA MAR ([id number]) on 07/13/2024 12:47:06 PM Referred By: Confirmed By: MARIEL HORN MD
[2024-07-13] MEDS: Potassium Chloride Oral Tablet 20 MEQ 40 MEQ PO (05:54)
[2024-07-13 06:44] LABS: Anion Gap 5 (5-15); BUN 47 mg/dL (7-18); BUN/Creat Ratio 24.4 RATIO (10-20); Calcium,Total 9.6 mg/dL (8.5-10.1); Chloride 96 mmol/L (98-107); Creatinine, Serum 1.93 mg/dL (0.55-1.02); EST Glomerular Filtration Rate 29 mL/min (>60); Est Glom Filt Rate - Afr Amer 35 mL/min (>60); Estimated Creatinine Clearance 64.46 ml/min; Glucose 95 mg/dL (74-106); Magnesium 2.2 mg/dL (1.6-2.6); Potassium 4.4 mmol/L (3.5-5.1); Sodium Level 135 mmol/L (136-145)
--- NOTE | 2024-07-13 08:12 | PN.HOSP_ITS ---
Reason for Visit Reason for Visit: Diagnoses Heart failure, unspecified (07/02/24) Acute and chronic respiratory failure with hypoxia (07/02/24) Hypoxemia (07/02/24) Subjective Subjective Had hypotension requiring a liter of IVF Objective Data Objective Data Vital Signs: Vital Signs Temp Pulse Resp BP Pulse Ox O2 Del Method O2 Flow Rate 36.4 C L 86 20 H 101/48 L 95 High Flow 5 07/13/24 06:00 07/13/24 06:00 07/13/24 06:00 07/13/24 06:00 07/13/24 06:00 07/13/24 06:00 07/13/24 06:00 FiO2 35 07/13/24 02:47 Oxygen Flow Rate (L/min) 5 Oxygen Delivery Method High Flow Weight: 207.065 kg Body Mass Index (BMI) 73.6 Intake & Output: Intake and Output for Last 24 Hours 07/11/24 07/12/24 07/13/24 23:59 23:59 23:59 Intake Total 1790 / 1790 2160.47 / 2160.47 250 / 250 Output Total 2965 / 2965 1400 / 1400 0 / 0 Balance -1175 / -1175 760.47 / 760.47 250 / 250 Lab / Micro Data 07/09/24 05:26 07/13/24 05:38 Labs: Laboratory Results - last 24 hr 07/13/24 05:38: Sodium 135 L, Potassium 4.4, Chloride 96 L, Carbon Dioxide 34.0 H, Anion Gap 5, BUN 47 H, Creatinine 1.93 H, Estim Creat Clear Calc 64.46, Est GFR (MDRD) Af Amer 35 L, Est GFR (MDRD) Non-Af 29 L, BUN/Creatinine Ratio 24.4 H , Glucose 95, Calcium 9.6, Magnesium 2.2 Micro: Microbiology 07/08/24 10:51 Mucosa - Nasopharyngeal SARS-CoV-2, Influenza & RSV (PCR) - Final 07/02/24 14:15 Blood Culture (Wb) - Arm Left Blood Culture - Final No growth in 5 days. 07/02/24 13:05 Blood Culture (Wb) - Anticubital Right Blood Culture - Final No growth in 5 days. 07/02/24 14:09 Urine, Clean Catch Urine Culture - Final Presumptive E. coli 07/02/24 22:00 Mucosa - Nasopharyngeal Respiratory Panel (PCR) - Final 07/02/24 13:01 Mucosa - Nose SARS-CoV-2, Influenza & RSV (PCR) - Final Physical Exam Const Constitutional Narrative: lying in bed. afebrile. non-toxic. HEENT head/scalp atraumatic and moist oral mucous membranes Resp normal respiratory effort and no retractions Extremity Extremity Narrative: lymphedematous changes. decreased Edema in LE. Assessment & Plan Assessment/Plan (1) CHF (congestive heart failure): (2) Acute on chronic respiratory failure with hypoxemia: PLAN: Plan Acute on chronic combined respiratory failure * KEAGAN, CHF, OHS * pulse ox will be monitored, patient remains on BiPAP at night due to suspected sleep apnea * Patient requires volume ventilation and all other alternative therapies, including bilevel, have been considered and ruled out due to the severity of the disease state, weak breathing muscles and potential life-threatening condition including CO2 retention probability of acute exacerbation, patient requires ventilation to be used during the day as needed, addition to every night usage with facemask. * Weaned down to 5 liters. Acute HFpEF * EF 60% * had hypotension on 07/12 so furosemide gtt was discontinued. ERIN * 2/2 diuresis * monitor. Will given another 500cc of IVF. Hypokalemia * ongoing 2/2 diuresis * continue replacement. Will increase KCl from 40 BID to TID. UTI * E. coli. * Antibiotics completed. class III obesity-complicates care, management, recovery, and prognosis VTE prophylaxis: LMWH Disposition: to [facility] pending insurance precertification. Though the patient now is expressing apprehension about returning there. Will have case management to address that issue. Overall, the patient is medically ready for discharge. Will further try to optimize her care with the furosemide drip but that could be switched over to oral when she is able to be discharged. Charges/Coding Visit Charges Inpatient E&M: 28705 Subs Hosp L2
[2024-07-13] MEDS: Enoxaparin 40 MG/0.4 ML Syringe SC ×2 (10:04→20:10)
[2024-07-13] MEDS: AcetaZOLAMIDE 250 MG Tablet PO (10:04)
[2024-07-13] MEDS: Nystatin Powder 15gm Bottle 1 APPLIC TOPICAL ×2 (10:04→20:11)
[2024-07-13] MEDS: 0.9% Normal Saline (1000mL) 1,000 ML 150 ML IV (13:39)
[2024-07-13] MEDS: 0.9% Saline Lock 10 ML Syringe IV ×2 (13:40→17:21)
[2024-07-14] VITALS (10 sets, daily range): BP systolic 88–114; BP diastolic 54–62; PULSE 86–96; RESP 14–20; TEMP 36.3–36.8; O2SAT 93–96; BMI 74.4
[2024-07-14 06:32] LABS: Anion Gap 7 (5-15); BUN 66 mg/dL (7-18); BUN/Creat Ratio 17.9 RATIO (10-20); Calcium,Total 9.6 mg/dL (8.5-10.1); Chloride 95 mmol/L (98-107); Creatinine, Serum 3.68 mg/dL (0.55-1.02); EST Glomerular Filtration Rate 14 mL/min (>60); Est Glom Filt Rate - Afr Amer 17 mL/min (>60); Estimated Creatinine Clearance 34.06 ml/min; Glucose 98 mg/dL (74-106); Potassium 4.7 mmol/L (3.5-5.1); Sodium Level 133 mmol/L (136-145)
--- NOTE | 2024-07-14 07:56 | PN.HOSP_ITS ---
Reason for Visit Reason for Visit: Diagnoses Heart failure, unspecified (07/02/24) Acute and chronic respiratory failure with hypoxia (07/02/24) Hypoxemia (07/02/24) Subjective Subjective Feels well. Objective Data Objective Data Vital Signs: Vital Signs Temp Pulse Resp BP Pulse Ox O2 Del Method O2 Flow Rate 36.8 C 89 20 H 114/61 94 Nasal Cannula 4 07/14/24 04:20 07/14/24 04:20 07/14/24 04:20 07/14/24 04:20 07/14/24 04:20 07/14/24 04:20 07/14/24 04:20 FiO2 35 07/14/24 02:07 Oxygen Flow Rate (L/min) 4 Oxygen Delivery Method Nasal Cannula Weight: 209.241 kg Body Mass Index (BMI) 74.4 Intake & Output: Intake and Output for Last 24 Hours 07/12/24 07/13/24 07/14/24 23:59 23:59 23:59 Intake Total 2160.47 / 2160.47 3160 / 3160 100 / 100 Output Total 1400 / 1400 60 / 60 Balance 760.47 / 760.47 3100 / 3100 100 / 100 Lab / Micro Data 07/09/24 05:26 07/14/24 05:35 Labs: Laboratory Results - last 24 hr 07/14/24 05:35: Sodium 133 L, Potassium 4.7, Chloride 95 L, Carbon Dioxide 31.0, Anion Gap 7, BUN 66 H, Creatinine 3.68 H, Estim Creat Clear Calc 34.06, Est GFR (MDRD) Af Amer 17 L, Est GFR (MDRD) Non-Af 14 L, BUN/Creatinine Ratio 17.9, Glucose 98, Calcium 9.6 Micro: Microbiology 07/08/24 10:51 Mucosa - Nasopharyngeal SARS-CoV-2, Influenza & RSV (PCR) - Final 07/02/24 14:15 Blood Culture (Wb) - Arm Left Blood Culture - Final No growth in 5 days. 07/02/24 13:05 Blood Culture (Wb) - Anticubital Right Blood Culture - Final No growth in 5 days. 07/02/24 14:09 Urine, Clean Catch Urine Culture - Final Presumptive E. coli 07/02/24 22:00 Mucosa - Nasopharyngeal Respiratory Panel (PCR) - Final 07/02/24 13:01 Mucosa - Nose SARS-CoV-2, Influenza & RSV (PCR) - Final Physical Exam Const alert and no apparent distress HEENT head/scalp atraumatic and moist oral mucous membranes Resp normal respiratory effort, no retractions, no use of accessory muscles and clear to auscultation bilaterally Cardio regular rate, regular rhythm, S1 normal heart sound and S2 normal heart sound GI normal to inspection, nondistended, normoactive bowel sounds, soft to palpation, non-tender and non-distended Extremity normal to inspection and full ROM Assessment & Plan Assessment/Plan (1) CHF (congestive heart failure): (2) Acute on chronic respiratory failure with hypoxemia: PLAN: Plan Acute on chronic combined respiratory failure * KEAGAN, CHF, OHS * pulse ox will be monitored, patient remains on BiPAP at night due to suspected sleep apnea * Patient requires volume ventilation and all other alternative therapies, including bilevel, have been considered and ruled out due to the severity of the disease state, weak breathing muscles and potential life-threatening condition including CO2 retention probability of acute exacerbation, patient requires ventilation to be used during the day as needed, addition to every night usage with facemask. * Weaned down to 5 liters. Acute HFpEF * EF 60% * had hypotension on 07/12 so furosemide gtt was discontinued. ERIN * worsening * check urine studies. check renal US. * more IVF. Hypokalemia * ongoing 2/2 diuresis * continue replacement. Will increase KCl from 40 BID to TID. UTI * E. coli. * Antibiotics completed. class III obesity-complicates care, management, recovery, and prognosis VTE prophylaxis: LMWH Disposition: to [facility] when medically ready. Charges/Coding Visit Charges Inpatient E&M: 17819 Subs Hosp L2
--- NOTE | 2024-07-14 07:58 | US_ITS ---
STUDY: RENAL ULTRASOUND - COMPLETE REASON FOR EXAM: Female, 49 years old. ERIN TECHNIQUE: Ultrasound evaluation of the kidneys was performed with real-time and static daley-scale imaging. COMPARISON: None. FINDINGS: RIGHT KIDNEY: Normal location of the right kidney, which is normal in size. The right kidney measures 13.8 cm x 5.2 cm x 6 cm. There is a normal cortex of the right kidney. The renal cortex measures 1.6 cm. There is no right renal mass or cyst. There are no right renal calculi. There is no right hydronephrosis. DISTAL RIGHT URETER: There is non-visualization of the distal right ureter. There is no demonstrated right ureterovesical junction calculus. There is a visualized right ureteral jet. LEFT KIDNEY: Normal location of the left kidney, which is normal in size. The left kidney measures 13.1 cm x 5.5 cm x 5.4 cm. There is a normal cortex of the left kidney. The renal cortex measures 1.4 cm. There is no left renal mass or cyst. There are no left renal calculi. There is no left hydronephrosis. DISTAL LEFT URETER: There is non-visualization of the distal left ureter. There is no demonstrated left ureterovesical junction calculus. There is a visualized left ureteral jet. BLADDER: A Huang catheter is seen within the empty urinary bladder. US/Kidney and Bladder IMPRESSION: Normal ultrasound of the kidneys. Electronically Signed: Chevy Platt MD at 10:10 EST ,
[2024-07-14] MEDS: 0.9% Normal Saline (1000mL) 1,000 ML 150 ML IV (09:02)
[2024-07-14] MEDS: 0.9% Saline Lock 10 ML Syringe IV ×2 (09:03→23:02)
[2024-07-14] MEDS: Enoxaparin 40 MG/0.4 ML Syringe SC ×2 (09:04→23:01)
[2024-07-14] MEDS: Nystatin Powder 15gm Bottle 1 APPLIC TOPICAL ×2 (09:05→23:00)
--- NOTE | 2024-07-14 12:04 | CASEMGMT ---
Discharge Planning [facility] has obtained auth to admit. Sarah Vargas DC Planning Asst.
[2024-07-14] MEDS: Senna/Docusate Sodium 1 Tablet 2 TABLET PO (13:54)
[2024-07-14 17:59] LABS: Mucous, Urine 0 SEEN /hpf (<or=2+)
[2024-07-14 18:07] LABS: Color, Urine Amber (Yellow); Glucose, Dipstick Normal (Normal); Ketone-Dipstick 5 mg/dl (Negative); Leukocyte Esterase-Dipstick 500 /ul (Negative); Nitrite-Dipstick Positive (Negative); Occult Blood-Urine 50 /ul (Negative); Protein-Dipstick 100 mg/dl (Negative); Specific Gravity, Urine 1.025 (1.002-1.030); Urine Clarity Cloudy (Clear); Urine Urobilinogen 4 mg/dl (Normal)
[2024-07-14 18:22] LABS: Urine Bilirubin Dipstick 3 mg/dL (Negative)
[2024-07-14 18:23] LABS: Bacteria 4+ /hpf (None Seen); Calcium Oxalate Crystals Ur RARE /hpf (<or=2+); Red Blood Cells-Urine 5-10 SEEN /hpf (0-5); Squamous Epithelial Cells - UA 0-5 SEEN /hpf (5-10); White Blood Cells >100 SEEN /hpf (0-5); Yeast-Urine 2+ /hpf (None Seen)
[2024-07-14 18:53] LABS: Urea Nitrogen, Urine 185 mg/dL (NO RANGE EST.)
[2024-07-14 23:38] LABS: Bedside Glucose 93 mg/dL (74-106)
[2024-07-15] VITALS (16 sets, daily range): BP systolic 90–114; BP diastolic 44–62; PULSE 86–95; RESP 14–20; TEMP 35.8–36.7; O2SAT 90–100; BMI 76.7
[2024-07-15] MEDS: MELATONIN 3 MG TABLET PO ×2 (00:05→22:27)
[2024-07-15 06:47] LABS: Anion Gap 6 (5-15); BUN 82 mg/dL (7-18); BUN/Creat Ratio 18.6 RATIO (10-20); Calcium,Total 9.6 mg/dL (8.5-10.1); Chloride 96 mmol/L (98-107); Creatinine, Serum 4.41 mg/dL (0.55-1.02); EST Glomerular Filtration Rate 11 mL/min (>60); Est Glom Filt Rate - Afr Amer 14 mL/min (>60); Estimated Creatinine Clearance 29.02 ml/min; Glucose 103 mg/dL (74-106); Potassium 4.9 mmol/L (3.5-5.1); Sodium Level 134 mmol/L (136-145)
--- NOTE | 2024-07-15 07:47 | PCM.PN.HOSP ---
Reason for Visit Reason for Visit: Diagnoses Heart failure, unspecified (07/02/24) Acute and chronic respiratory failure with hypoxia (07/02/24) Hypoxemia (07/02/24) Subjective Subjective Breathing okay. Objective Data Objective Data Vital Signs: Vital Signs Temp Pulse Resp BP Pulse Ox O2 Del Method O2 Flow Rate 35.8 C L 89 18 104/46 L 95 Nasal Cannula 3 07/15/24 06:00 07/15/24 06:00 07/15/24 06:00 07/15/24 06:00 07/15/24 06:00 07/15/24 06:00 07/15/24 06:00 FiO2 35 07/15/24 02:53 Oxygen Flow Rate (L/min) 3 Oxygen Delivery Method Nasal Cannula Weight: 215.6 kg Body Mass Index (BMI) 76.7 Intake & Output: Intake and Output for Last 24 Hours 07/13/24 07/14/24 07/15/24 23:59 23:59 23:59 Intake Total 3160 / 3160 1100 / 1100 150 / 150 Output Total 60 / 60 75 / 175 130 / 130 Balance 3100 / 3100 1025 / 925 20 / 20 Lab / Micro Data 07/09/24 05:26 07/15/24 05:39 Labs: Laboratory Results - last 24 hr 07/14/24 16:16: Urine Urea Nitrogen 185 07/14/24 16:20: Urine Color Dilia, Urine Clarity Cloudy, Urine pH 5.0, Ur Specific Stollings 1.025, Urine Protein 100 H, Urine Glucose (UA) Normal, Urine Ketones 5 H, Urine Occult Blood 50 H, Urine Nitrite Positive H, Urine Bilirubin 3 H, Urine Urobilinogen 4 H, Ur Leukocyte Esterase 500 H, Urine RBC 5-10 SEEN, Urine WBC >100 SEEN, Ur Squamous Epith Cells 0-5 SEEN, Calcium Oxalate Crystal RARE, Urine Bacteria 4+, Urine Mucus 0 SEEN, Urine Yeast 2+, Urine Creatinine 202.00 07/14/24 23:15: POC Glucose 93 07/15/24 05:39: Sodium 134 L, Potassium 4.9, Chloride 96 L, Carbon Dioxide 32.0, Anion Gap 6, BUN 82 H, Creatinine 4.41 H, Estim Creat Clear Calc 29.02, Est GFR (MDRD) Af Amer 14 L, Est GFR (MDRD) Non-Af 11 L, BUN/Creatinine Ratio 18.6, Glucose 103, Calcium 9.6 Micro: Microbiology 07/08/24 10:51 Mucosa - Nasopharyngeal SARS-CoV-2, Influenza & RSV (PCR) - Final 07/02/24 14:15 Blood Culture (Wb) - Arm Left Blood Culture - Final No growth in 5 days. 07/02/24 13:05 Blood Culture (Wb) - Anticubital Right Blood Culture - Final No growth in 5 days. 07/02/24 14:09 Urine, Clean Catch Urine Culture - Final Presumptive E. coli 07/02/24 22:00 Mucosa - Nasopharyngeal Respiratory Panel (PCR) - Final 07/02/24 13:01 Mucosa - Nose SARS-CoV-2, Influenza & RSV (PCR) - Final Radiography Diagnostic Testing: Radiology Impression Renal Ultrasound 07/14/24 07:58 IMPRESSION: Normal ultrasound of the kidneys. Electronically Signed: Chevy Platt MD at 10:10 EST , Physical Exam Const alert and no apparent distress Constitutional Narrative: Laid out across the bariatric bed. HEENT head/scalp atraumatic and moist oral mucous membranes Resp normal respiratory effort, no retractions and no use of accessory muscles Cardio regular rate, regular rhythm, S1 normal heart sound and S2 normal heart sound GI GI Narrative: Obese. Soft. Nondistended. Extremity Extremity Narrative: Venous stasis changes lower extremities. Neuro Sensorium / Orientation: awake and alert Assessment & Plan Assessment/Plan (1) CHF (congestive heart failure): (2) Acute on chronic respiratory failure with hypoxemia: PLAN: Plan Acute on chronic combined respiratory failure KEAGAN, CHF, OHS pulse ox will be monitored, patient remains on BiPAP at night due to suspected sleep apnea Patient requires volume ventilation and all other alternative therapies, including bilevel, have been considered and ruled out due to the severity of the disease state, weak breathing muscles and potential life-threatening condition including CO2 retention probability of acute exacerbation, patient requires ventilation to be used during the day as needed, addition to every night usage with facemask. Weaned down to 3 liters. Acute HFpEF EF 60% had hypotension on 07/12 so furosemide gtt was discontinued. ERIN worsening past 3 days, previously was 0.63. Oliguric. UA shows SG 1.025. FEUrea 5.11, consistent with prerenal. Renal ultrasound negative. Will give more IVF 2 more liters. If continues to worse despite IVF, recommend consult nephrology Hypokalemia ongoing 2/2 diuresis continue replacement. Will increase KCl from 40 BID to TID. UTI E. coli. Antibiotics completed. class III obesity-complicates care, management, recovery, and prognosis VTE prophylaxis: LMWH Disposition: to [facility] when medically ready. Charges/Coding Visit Charges Inpatient E&M: 29282 Subs Hosp L2
[2024-07-15] MEDS: 0.9% Normal Saline (1000mL) 1,000 ML 150 ML IV ×3 (08:29→22:51)
[2024-07-15] MEDS: Enoxaparin 40 MG/0.4 ML Syringe SC ×2 (08:35→20:26)
[2024-07-15] MEDS: Nystatin Powder 15gm Bottle 1 APPLIC TOPICAL ×2 (08:36→20:25)
[2024-07-15] MEDS: 0.9% Saline Lock 10 ML Syringe IV (20:27)
[2024-07-16] VITALS (8 sets, daily range): BP systolic 93–114; BP diastolic 44–61; PULSE 86–92; RESP 16–18; TEMP 36.2–36.8; O2SAT 92–96; BMI 78.0
--- NOTE | 2024-07-16 00:13 | CPS ---
Pt refused bipap tonight
[2024-07-16 06:42] LABS: Anion Gap 6 (5-15); BUN 89 mg/dL (7-18); BUN/Creat Ratio 19.7 RATIO (10-20); Calcium,Total 9.4 mg/dL (8.5-10.1); Chloride 100 mmol/L (98-107); Creatinine, Serum 4.52 mg/dL (0.55-1.02); EST Glomerular Filtration Rate 11 mL/min (>60); Est Glom Filt Rate - Afr Amer 13 mL/min (>60); Estimated Creatinine Clearance 28.66 ml/min; Glucose 100 mg/dL (74-106); Potassium 4.9 mmol/L (3.5-5.1); Sodium Level 136 mmol/L (136-145)
--- NOTE | 2024-07-16 07:57 | PN.HOSP_ITS ---
Reason for Visit Reason for Visit: Shortness of breath/hypoxia Subjective Subjective Mrs. Duke is a super morbidly obese 49-year-old white female who was transferred from [facility] on 07/02/2024 due to hypoxia. The patient has been on oxygen she reported with unclear amounts while at the nursing facility and she is currently residing there after suffering a knee injury and being admitted to [facility]. She had only been there 3 days at the time of transfer to our emergency department. Patient reported that she has admittedly been a bit of confused on presentation and was not clear if she was on a CPAP or had a diagnosis of sleep apnea. She stated that prior to going to [place] she had no diagnosed medical problems and was placed on Lasix and sent this in the [facility]. She indicated she did not feel that her lower extremities were more edematous and had been when she was discharged from [place] but did note that she had increased shortness of breath and possibly some intermittent cough. She had no chest pain, fevers, or chills but did states she has been somewhat constipated. Vital signs on presentation showed a temperature of 97.6, heart rate 107, respiratory rate was between 10 and 19, blood pressure was 132/81 and pulse ox was 100% on nonrebreather. CBC was overtly unremarkable. She did have a left shift with an 82.5% neutrophilia. Coags did show a mildly elevated D-dimer at 1.84. Chemistry panel on presentation showed normal electrolytes but she did have a serum bicarb of greater than 45. Creatinine was 0.59. Glucose was 121. Bilirubin was 1.80. BNP was elevated at 105.6. Chest x-ray showed vascular congestion, CHF, and cardiomegaly. Given her elevated D-dimer venous duplex were performed and negative for DVT. I will suspected on admission for respiratory failure was related to volume overload heart failure and she was placed on BiPAP, IV Lasix, fluid restriction and a sodium restricted diet. Biotic and echocardiogram was performed and showed an EF of 60% with concentric LVH that was moderate nature and stage I diastolic dysfunction. Unfortunately, the quality of study was poor due to body habitus. Pulmonary artery pressures were estimated at 39 mmHg. She was placed on a Lasix drip and for the admission has diuresed over 20 L of fluids. Weight on admission was 241.4 kg with her weight today being 219 kg. Unfortunately, with her Lasix drip her creatinine is slowly trended up. To the point today she is currently 4.52. I have consulted nephrology. She was given 1 L of IV fluids yesterday and we will go ahead and give another liter today. She is oliguric but not an uric and no need for any dialysis at this time. Objective Data Objective Data Vital Signs: Vital Signs Temp Pulse Resp BP Pulse Ox O2 Del Method O2 Flow Rate 97.1 F L 87 16 114/60 92 Nasal Cannula 3 07/16/24 03:00 07/16/24 03:00 07/16/24 03:00 07/16/24 03:00 07/16/24 07:33 07/16/24 07:33 07/16/24 07:33 FiO2 35 07/15/24 02:53 Oxygen Flow Rate (L/min) 3 Oxygen Delivery Method Nasal Cannula Weight: 219.3 kg Body Mass Index (BMI) 78.0 Intake & Output: Intake and Output for Last 24 Hours 07/14/24 07/15/24 07/16/24 23:59 23:59 23:59 Intake Total 1100 / 1100 2440 / 2440 1000 / 1000 Output Total 75 / 175 280 / 355 175 / 175 Balance 1025 / 925 2160 / 2085 825 / 825 Lab / Micro Data 07/09/24 05:26 07/16/24 05:31 Labs: Laboratory Results - last 24 hr 07/16/24 05:31: Sodium 136, Potassium 4.9, Chloride 100, Carbon Dioxide 30.0, Anion Gap 6, BUN 89 H, Creatinine 4.52 H, Estim Creat Clear Calc 28.66, Est GFR (MDRD) Af Amer 13 L, Est GFR (MDRD) Non-Af 11 L, BUN/Creatinine Ratio 19.7, Glucose 100, Calcium 9.4 Micro: Microbiology 07/08/24 10:51 Mucosa - Nasopharyngeal SARS-CoV-2, Influenza & RSV (PCR) - Final 07/02/24 14:15 Blood Culture (Wb) - Arm Left Blood Culture - Final No growth in 5 days. 07/02/24 13:05 Blood Culture (Wb) - Anticubital Right Blood Culture - Final No growth in 5 days. 07/02/24 14:09 Urine, Clean Catch Urine Culture - Final Presumptive E. coli 07/02/24 22:00 Mucosa - Nasopharyngeal Respiratory Panel (PCR) - Final 07/02/24 13:01 Mucosa - Nose SARS-CoV-2, Influenza & RSV (PCR) - Final Physical Exam Const alert, oriented x3, no apparent distress and well nourished; Negative for average body habitus or healthy appearing Constitutional Narrative: Very pleasant, super morbidly obese, white female, lying in bed, watching television eating dinner, appears comfortable, nontoxic, currently on 3 L nasal cannula and appears like she is breathing comfortably HEENT head/scalp atraumatic and moist oral mucous membranes HEENT Narrative: Mallampati 4, no thrush Head and Scalp: normocephalic Resp normal respiratory effort, no retractions, no use of accessory muscles and clear to auscultation bilaterally Resp Narrative: Distant due to body habitus Auscultation: Negative for rales, rhonchi or wheezes Cardio regular rate, regular rhythm, S1 normal heart sound, S2 normal heart sound, no murmurs, no rub, no gallops and no clicks GI normal to inspection, nondistended, normoactive bowel sounds, soft to palpation and non-tender GI Narrative: Large protuberant abdomen Extremity Extremity Narrative: No significant edema noted this time, no cyanosis or clubbing Neuro oriented x3, moves all extremities and no focal motor deficits Neuro Narrative: Marked generalized weakness but no focal deficit Speech: speech normal Psych Psych Narrative: Affect is slightly flat, patient makes good eye contact and appears to interact appropriately Assessment & Plan Assessment/Plan (1) Acute renal failure: (2) Hypoxia: (3) Acute on chronic respiratory failure with hypoxia and hypercapnia: PLAN: Plan Acute on chronic hypoxic and hypercapnic respiratory failure -Multifactorial KEAGAN/OHS/acute on chronic HFpEF -Echocardiogram overall looks pretty good -BNP was elevated at greater than 100 in the setting of morbid obesity which I suspect makes his pretty significant -Diuresed aggressively and is down about 20 L -With a change in weight of about 20 kg -Will repeat BNP in a.m. to trend and check a.m. chest x-ray -Respiratory status currently stable on 2 L nasal cannula -Suspect baseline pCO2 is between 70 and 80 -Will need continued BiPAP at discharge -Discussed with correctional casework specialist tomorrow ERIN -Highly suspect prerenal in nature -Continue Huang -Renal ultrasound is unremarkable -Urine studies are fairly unremarkable -Urine protein and creatinine ratio pending -Autoimmune lab pending -Will fluid challenge with another liter today as rate of rise did improve with volume repletion yesterday however still there was a bump from her baseline Hyponatremia -Resolved Hypokalemia -Resolved E. coli UTI -Antibiotic completed Morbid obesity -BMI 78 -Complicates treatment, prognosis, outcomes -Recommend weight loss DVT prophylaxis -Discontinue Lovenox twice daily due to renal function -Start heparin 5000 units 3 times daily CODE STATUS -Full code as verified on admission Charges/Coding Visit Charges Inpatient E&M: 51304 Subs Hosp L2
[2024-07-16] MEDS: Nystatin Powder 15gm Bottle 1 APPLIC TOPICAL ×2 (08:30→20:48)
[2024-07-16 08:52] LABS: Bacteria 0 SEEN /hpf (None Seen); Mucous, Urine 0 SEEN /hpf (<or=2+); Red Blood Cells-Urine 0 SEEN /hpf (0-5); Squamous Epithelial Cells - UA 0 SEEN /hpf (5-10)
[2024-07-16 08:58] LABS: Color, Urine Yellow (Yellow); Glucose, Dipstick Normal (Normal); Ketone-Dipstick Negative (Negative); Leukocyte Esterase-Dipstick 500 /ul (Negative); Nitrite-Dipstick Negative (Negative); Occult Blood-Urine 50 /ul (Negative); Protein-Dipstick 30 mg/dl (Negative); Specific Gravity, Urine 1.025 (1.002-1.030); Urine Clarity Cloudy (Clear); Urine Urobilinogen 1 mg/dl (Normal)
[2024-07-16 08:59] LABS: Urine Bilirubin Dipstick 1 mg/dL (Negative)
[2024-07-16 09:03] LABS: Urine Sodium 23 mmol/L (Not Establ.)
[2024-07-16 09:20] LABS: White Blood Cells 50-100 SEEN /hpf (0-5)
[2024-07-16 09:21] LABS: Calcium Oxalate Crystals Ur 1+ /hpf (<or=2+)
--- NOTE | 2024-07-16 11:00 | CON.PCM.RE_ITS ---
Assessment & Plan Assessment/Plan (1) Acute renal failure: PLAN: Baseline creatinine is normal. Creatinine was close to baseline as of 4 days ago. Progressive increase in creatinine over the last 3 days. Rudolph catheter indwelling. Renal ultrasound without any hydronephrosis. Urine analysis shows few leukocytes, RBC, 1+ protein. She has a Rudolph catheter indwelling hence urine analysis may not be reliable. Originally presented with shortness of breath. Initial chest x-ray was consistent with pulmonary edema. However BNP was about 150. Typically BNP can be artificially low and morbid obesity but this is somewhat too low. Echocardiogram with good ejection fraction, read as normal right ventricular hence I am likely there is any component of right heart failure as well. There is no history of cirrhosis. Etiology of fluid overload unclear. I will send off a urine protein creatinine ratio and other labs. To rule out inflammatory etiologies, I will send glomerulonephritis serologies as well. Will discuss with hospitalist HPI Consult Data Date of Consult: 07/16/24 HPI Narrative Reason for Consultation: ERIN HPI Narrative: MARIOLA KIRAN, is a 49 F who presents to the hospital with shortness of breath. Nephrology on consultation in view of acute renal failure. Apparently she was recently at [facility] with a knee injury, was subsequently admitted to rehab. Transferred here because of shortness of breath. Chest x- ray initially was consistent with pulmonary edema pattern. She has been on IV Lasix for about a week or so. Creatinine has been increasing over the last 3 days, up to 4.5 today. She has received IV fluids, despite that she is oliguric. She is currently alert, awake. No sinus symptoms, hemoptysis. She says her legs are always swollen. Does not check weights due to body habitus. Unclear how much weight she gained. She has been oliguric for about 3 days or so. [facility] Home Medications ?Medication ?Instructions ?Recorded ?Last Taken ?Type acetaminophen 325 mg capsule 650 mg PO Q4H PRN fever 07/02/24 Unknown History acetaminophen 650 mg rectal 650 mg NE Q4H 07/02/24 Unknown History suppository albuterol sulfate 2.5 mg/3 mL 2.5 mg inhalation Q4H PRN 07/02/24 07/01/24 History (0.083 %) solution for nebulization shortness of breath or wheezing aluminum-magnesium hydroxide 200 30 ml PO Q4H PRN GI DISTRESS 07/02/24 07/01/24 History mg-200 mg/5 mL oral suspension (MAG-AL) ascorbic acid (vitamin C) 500 mg 500 mg PO DAILY 07/02/24 07/02/24 History capsule bisacodyl 10 mg rectal suppository 10 mg NE DAILY PRN constipation 07/02/24 Unknown History dextromethorphan-guaifenesin 10 5 ml PO Q6H PRN cough 07/02/24 Unknown History mg-100 mg/5 mL oral liquid (Biocotron) ergocalciferol (vitamin D2) 1,250 1,250 mcg PO QWEEK 07/02/24 Unknown History mcg (50,000 unit) capsule (Vitamin D2) guaifenesin 100 mg/5 mL oral 200 mg PO Q4H PRN congestion 07/02/24 Unknown History liquid (Adult Tussin Chest Congestion) hydroxyzine HCl 25 mg tablet 25 mg PO TID PRN RESTLESSNESS 07/02/24 07/01/24 History miconazole nitrate 2 % topical 1 applic topical DAILY 07/02/24 Unknown History powder (Antifungal (miconazole)) multivit,stress formula-zinc 1 tab PO DAILY 07/02/24 07/02/24 History tablet (Stress B With Zinc tablet) multivitamin (Daily Multi-Vitamin 1 tab PO DAILY 07/02/24 07/02/24 History tablet) ondansetron 4 mg disintegrating 4 mg PO Q8H PRN nausea and vomiting 07/02/24 Unknown History tablet polyethylene glycol 3350 17 17 g PO DAILY PRN constipation 07/02/24 07/01/24 History gram/dose oral powder (ClearLax) sodium phosphates 19 gram-7 118 ml NE DAILY PRN constipation 07/02/24 Unknown History gram/118 mL enema (Enema) spironolactone 25 mg tablet 25 mg PO DAILY 07/02/24 07/02/24 History torsemide 20 mg tablet 20 mg PO BID 07/02/24 07/02/24 History Allergy/AdvReac Type Severity Reaction Status Date / Time No Known Allergies Allergy Verified 07/02/24 12:35 Social History Smoking Status: Never smoker ROS ROS Narrative Negative except above Physical Exam Narrative Alert awake oriented x 3 no obvious distress no pallor no icterus no JVD s1s2 no murmurs lungs clear abdomen soft no organomegaly no edema no cyanosis rudolph + Lab / Micro Data 07/09/24 05:26 07/16/24 05:31 Labs: Laboratory Results - last 24 hr 07/16/24 05:31: Sodium 136, Potassium 4.9, Chloride 100, Carbon Dioxide 30.0, Anion Gap 6, BUN 89 H, Creatinine 4.52 H, Estim Creat Clear Calc 28.66, Est GFR (MDRD) Af Amer 13 L, Est GFR (MDRD) Non-Af 11 L, BUN/Creatinine Ratio 19.7, Glucose 100, Calcium 9.4 07/16/24 08:45: Urine Color Yellow, Urine Clarity Cloudy, Urine pH 5.0, Ur Specific [place] 1.025, Urine Protein 30 H, Urine Glucose (UA) Normal, Urine Ketones Negative, Urine Occult Blood 50 H, Urine Nitrite Negative, Urine Bilirubin 1 H, Urine Urobilinogen 1 H, Ur Leukocyte Esterase 500 H, Urine RBC 0 SEEN, Urine WBC 50-100 SEEN, Ur Squamous Epith Cells 0 SEEN, Calcium Oxalate Crystal 1+, Urine Bacteria 0 SEEN, Urine Mucus 0 SEEN, Ur Random Sodium 23
--- NOTE | 2024-07-16 11:31 | CASEMGMT ---
Discharge Planning Updates sent to [facility] with note that pt will not dc today and not to submit for new precert just yet. Sarah Vargas DC Planning Asst.
[2024-07-16 14:11] LABS: Protein, Urine (Random) 99.7 mg/dL (<11.9); Protein:Creat Ratio 519 mg/g CRE (0-200)
[2024-07-16] MEDS: Heparin Injection (Vial) 5,000 UNIT/ML VIAL 5000 UNIT SC ×2 (14:27→20:47)
[2024-07-16] MEDS: 0.9% Normal Saline (1000mL) 1,000 ML 150 ML IV (17:09)
--- NOTE | 2024-07-16 20:30 | RAD_ITS ---
EXAM: XR CHEST, 1 VIEW CLINICAL INDICATION: hypoxia TECHNIQUE: Frontal view of the chest. COMPARISON: July 08, 2024. FINDINGS: LUNGS AND PLEURAL SPACES: Moderate central pulmonary vascular distention but also improved from prior exam. Mild increased interstitial-vascular markings in the lung periphery. Right hemidiaphragm is better seen with clearance of some of the mild lung opacity. Lungs remain hypoinflated. Apical lordotic positioning. HEART: Mildly improved visibility of the heart margins but at least mild persistent cardiomegaly. MEDIASTINUM: Central airways and mediastinal contour are unremarkable. BONES/JOINTS: Unremarkable. No acute fracture. SOFT TISSUES: Unremarkable. UPPER ABDOMEN: Left lateral hemidiaphragm and costophrenic angle are not well seen, similar to prior exam. RAD/Chest 1 View (Portable) IMPRESSION: Persistent but improved cardiomegaly and pulmonary vascular congestion. Mild improved appearance of the hazy lung opacities with better visualization of the right hemidiaphragm. Electronically Signed: Joaquina Soliz MD at 22:24 [facility] ,
--- NOTE | 2024-07-17 01:20 | CPS ---
Pt refused BiPAP for tonight.
[2024-07-17 02:30] VITALS: BP 105/57; PULSE 87; RESP 16; TEMP 36.7; O2SAT 96
[2024-07-17] MEDS: Heparin Injection (Vial) 5,000 UNIT/ML VIAL 5000 UNIT SC ×3 (05:58→21:17)
[2024-07-17 07:13] VITALS: O2SAT 92
[2024-07-17 08:30] VITALS: BP 118/60; PULSE 86; RESP 17; TEMP 36.8; O2SAT 94
[2024-07-17] MEDS: Nystatin Powder 15gm Bottle 1 APPLIC TOPICAL ×2 (09:27→21:18)
[2024-07-17 10:25] LABS: Absolute Lymphocyte Count 0.87 X10^3/uL (0.83-4.51); Absolute Neutrophil Count 3.5 X10^3/uL (2.0-7.7); Basophil# 0.04 X10^3/uL; Basophil% 0.7 % (0-1); Eosinophil# 0.21 X10^3/uL; Eosinophils% 3.9 % (0-5); Hematocrit 42.1 % (37-47); Hemoglobin 12.3 g/dL (12.0-15.0); Lymphocyte # 0.87 X10^3/ul (0.83-4.51); Lymphocyte % 16.1 % (19-41); Mean Corp Hgb Conc 29.2 g/dL (32-36); Mean Corpuscular Hgb 28.3 pg (27.0-32.0); Mean Corpuscular Volume 96.8 fL (81-99); Mean Platelet Vol. 11.8 fl (6.2-12.0); Monocyte# 0.69 X10^3/uL; Monocyte% 12.8 % (0-10); NRBC Flagged by Analyzer 0 % (0-5); Neutrophil # 3.53 X10^3/uL (2.7-7.7); Neutrophil % 65.4 % (47-70); POSITIVE MORPHOLOGY YES; Platelet Count 255 K/mm3 (150-450); RBC Distribution Width SD 73.6 fl (35.1-43.9); Red Blood Count 4.35 M/mm3 (4.2-5.4); White Blood Count 5.4 K/mm3 (4.4-11.0)
[2024-07-17 10:32] LABS: Differential Indicated SCAN CRITERIA MET
[2024-07-17 10:46] LABS: ALB/GLOB Ratio 0.6 RATIO (0.9-2.4); AST(SGOT) 20 U/L (15-37); Alanine Aminotransfer ALT/SGPT 19 U/L (13-56); Alkaline Phosphatase 88 U/L (45-117); Anion Gap 7 (5-15); BUN 90 mg/dL (7-18); BUN/Creat Ratio 26.1 RATIO (10-20); Calcium,Total 9.4 mg/dL (8.5-10.1); Chloride 102 mmol/L (98-107); Creatinine, Serum 3.45 mg/dL (0.55-1.02); EST Glomerular Filtration Rate 15 mL/min (>60); Est Glom Filt Rate - Afr Amer 18 mL/min (>60); Estimated Creatinine Clearance 37.55 ml/min; Globulin 4.7 g/dL (2.2-4.2); Glucose 101 mg/dL (74-106); Magnesium 2.5 mg/dL (1.6-2.6); Phosphorus 6.3 mg/dL (2.5-4.9); Potassium 4.4 mmol/L (3.5-5.1); Protein, Total 7.7 g/dL (6.4-8.2); Sodium Level 139 mmol/L (136-145)
[2024-07-17 10:54] LABS: BNP,B-Type NATRIURETIC PEPTIDE 105.9 pg/mL (0-100)
--- NOTE | 2024-07-17 11:01 | CASEMGMT ---
Addendum entered by Sarah Vargas 07/17/24 11:33: Pt will not need new precert. Current one is good until 07/21. SW updated. Sarah Vargas DC Planning Asst. Original Note: Discharge Planning Updates sent to [facility] with request to submit for new precert. Sarah Vargas DC Planning Asst.
[2024-07-17 11:08] LABS: Anisocytosis 2+; Differential Comment SCANNED; Macrocytosis 1+; Microcytosis 1+; Platelet Estimate ADEQUATE (ADEQ)
[2024-07-17 11:09] LABS: Target Cells 1+; Tear Drop Cell 1+
[2024-07-17] MEDS: Dicyclomine 10 MG Capsule PO ×3 (11:23→21:19)
--- NOTE | 2024-07-17 11:37 | CASEMGMT ---
Discharge Plan: Pt to return to [facility] when medically ready. Precert has been obtained and is good through 07/21. If pt does not discharge by this date, new precert will be needed. Green Sheet placed on chart to facilitate a weekend discharge. Physician notified. ELSY Polk
[2024-07-17] MEDS: 0.9% Normal Saline (1000mL) 1,000 ML 100 ML IV (12:16)
[2024-07-17 13:07] LABS: Anti-dsDNA Ab <1 IU/mL (0-9)
[2024-07-17 14:08] LABS: Free Kappa Light Chains 147.1 mg/L (3.3-19.4); Free Lambda Light Chains 54.4 mg/L (5.7-26.3)
[2024-07-17 14:30] VITALS: BP 107/62; PULSE 90; RESP 17; TEMP 36.6; O2SAT 94
--- NOTE | 2024-07-17 15:48 | PCM.PN.HOSP ---
Reason for Visit Reason for Visit: Shortness of breath/hypoxia Subjective Subjective Patient denies any respiratory issues at this time. Remains on baseline oxygen at 3 L. Is complaining of some intermittent abdominal cramping today. Seems to be associated with bowel movement. I did discuss trialing of Bentyl and she stated that would be fine. Renal function is improving and she is pleased. She has so much longer she think she will need to be in the hospital and I did indicate her probably another 24 to 48 hours depending on her renal function. Objective Data Objective Data Vital Signs: Vital Signs Temp Pulse Resp BP Pulse Ox O2 Del Method O2 Flow Rate 98.2 F 86 17 118/60 94 Nasal Cannula 3 07/17/24 08:30 07/17/24 08:30 07/17/24 08:30 07/17/24 08:30 07/17/24 08:30 07/17/24 09:34 07/17/24 09:34 FiO2 35 07/15/24 02:53 Oxygen Flow Rate (L/min) 3 Oxygen Delivery Method Nasal Cannula Weight: 219.3 kg Body Mass Index (BMI) 78.0 Intake & Output: Intake and Output for Last 24 Hours 07/15/24 07/16/24 07/17/24 23:59 23:59 23:59 Intake Total 2440 / 2440 1360 / 1360 1240 / 1240 Output Total 280 / 355 525 / 700 325 / 325 Balance 2160 / 2085 835 / 660 915 / 915 Lab / Micro Data 07/17/24 10:17 07/17/24 10:17 Labs: Laboratory Results - last 24 hr 07/16/24 11:12: Double Strand DNA Ab <1, Free [place] LC, Quant 147.1 H, Free Lambda LC, Quant 54.4 H, Free [place]/Lambda Ratio 2.70 H 07/17/24 10:17: WBC 5.4, RBC 4.35, Hgb 12.3, Hct 42.1, MCV 96.8, MCH 28.3, MCHC 29.2 L, RDW Std Deviation 73.6 H, RDW Coeff of Michaelle 21.0 H, Plt Count 255, MPV 11.8, Immature Gran % (Auto) 1.100 H, Neut % (Auto) 65.4, Lymph % (Auto) 16.1 L, [place] % (Auto) 12.8 H, Eos % (Auto) 3.9, Baso % (Auto) 0.7, Absolute Neuts (auto) 3.5, Absolute Lymphs (auto) 0.87, Nucleated RBC % 0, Differential Comment SCANNED, Platelet Estimate ADEQUATE, Anisocytosis 2+, Microcytosis 1+, Macrocytosis 1+, Target Cells 1+, Tear Drop Cells 1+, Sodium 139, Potassium 4.4, Chloride 102, Carbon Dioxide 30.0, Anion Gap 7, BUN 90 H, Creatinine 3.45 H, Estim Creat Clear Calc 37.55, Est GFR (MDRD) Af Amer 18 L, Est GFR (MDRD) Non-Af 15 L, BUN/Creatinine Ratio 26.1 H, Glucose 101, Calcium 9.4, Phosphorus 6.3 H, Magnesium 2.5, Total Bilirubin 0.70, AST 20, ALT 19, Alkaline Phosphatase 88, B-Natriuretic Peptide 105.9 H, Total Protein 7.7, Albumin 3.0 L, Globulin 4.7 H, Albumin/Globulin Ratio 0.6 L Micro: Microbiology 07/08/24 10:51 Mucosa - Nasopharyngeal SARS-CoV-2, Influenza & RSV (PCR) - Final 07/02/24 14:15 Blood Culture (Wb) - Arm Left Blood Culture - Final No growth in 5 days. 07/02/24 13:05 Blood Culture (Wb) - Anticubital Right Blood Culture - Final No growth in 5 days. 07/02/24 14:09 Urine, Clean Catch Urine Culture - Final Presumptive E. coli 07/02/24 22:00 Mucosa - Nasopharyngeal Respiratory Panel (PCR) - Final 07/02/24 13:01 Mucosa - Nose SARS-CoV-2, Influenza & RSV (PCR) - Final Radiography Diagnostic Testing: Radiology Impression Chest X-Ray 07/16/24 20:30 IMPRESSION: Persistent but improved cardiomegaly and pulmonary vascular congestion. Mild improved appearance of the hazy lung opacities with better visualization of the right hemidiaphragm. Electronically Signed: Joaquina Soliz MD at 22:24 EST , Physical Exam Const alert, oriented x3, no apparent distress and well nourished; Negative for average body habitus or healthy appearing Constitutional Narrative: Very pleasant, super morbidly obese, white female, sitting up in bed, watching television, appears comfortable, nontoxic, currently on 3 L nasal cannula and appears like she is breathing comfortably HEENT normocephalic, head/scalp atraumatic and moist oral mucous membranes HEENT Narrative: Mallampati 4, no thrush Resp normal respiratory effort, no retractions, no use of accessory muscles and clear to auscultation bilaterally Resp Narrative: Distant due to body habitus Auscultation: Negative for rales, rhonchi or wheezes Cardio regular rate, regular rhythm, S1 normal heart sound, S2 normal heart sound, no murmurs, no rub, no gallops and no clicks GI normal to inspection, nondistended, normoactive bowel sounds, soft to palpation and non-tender GI Narrative: Large protuberant abdomen Extremity Extremity Narrative: No significant edema noted this time, no cyanosis or clubbing Neuro moves all extremities and no focal motor deficits Neuro Narrative: Marked generalized weakness but no focal deficit Speech: speech normal Psych Psych Narrative: Affect remains a bit flat, patient makes good eye contact and appears to interact appropriately Assessment & Plan Assessment/Plan (1) Acute renal failure: (2) Hypoxia: (3) Acute on chronic respiratory failure with hypoxia and hypercapnia: PLAN: Plan Acute on chronic hypoxic and hypercapnic respiratory failure -Multifactorial KEAGAN/OHS/acute on chronic HFpEF -Echocardiogram overall looks pretty good -BNP was elevated at greater than 100 in the setting of morbid obesity which I suspect makes his pretty significant -Is -19.1 L for her hospitalization -With a change in weight of about 20 kg -BNP is likely chronically elevated but down from admission -Respiratory status remained stable on 2 to 3 L nasal cannula -Suspect baseline pCO2 is between 70 and 80 -Will need continued BiPAP at discharge ERIN -Secondary to prerenal azotemia from diuresis -I do feel the patient will need to remain on the dry side in order to optimize cardiac function and her ability to oxygenate -Urine output has picked up and renal function is much improved in the last 24 hours -Continue Huang -Renal ultrasound is unremarkable -Will give 1 more liter IV fluids -Autoimmune lab pending -Will fluid challenge with another liter today as rate of rise did improve with volume repletion yesterday however still there was a bump from her baseline Hyponatremia -Remains resolved -This would be a good marker for pending heart failure in the future E. coli UTI -Antibiotic completed Morbid obesity -BMI 78 -Complicates treatment, prognosis, outcomes -Recommend weight loss DVT prophylaxis -Continue heparin 5000 units 3 times daily CODE STATUS -Full code Charges/Coding Visit Charges Inpatient E&M: 31395 Subs Hosp L2
[2024-07-17 15:57] VITALS: BMI 78.0
[2024-07-17 16:00] VITALS: BMI 78.0
--- NOTE | 2024-07-17 17:44 | PN.RENAL_ITS ---
Subjective Subjective no new events Objective Data Objective Data Vital Signs: Vital Signs Temp Pulse Resp BP Pulse Ox O2 Del Method O2 Flow Rate 97.9 F 90 17 107/62 94 Nasal Cannula 3 07/17/24 14:30 07/17/24 14:30 07/17/24 14:30 07/17/24 14:30 07/17/24 14:30 07/17/24 14:30 07/17/24 14:30 FiO2 35 07/15/24 02:53 Oxygen Flow Rate (L/min) 3 Oxygen Delivery Method Nasal Cannula Weight: 219.3 kg Body Mass Index (BMI) 78.0 Intake & Output: Intake and Output for Last 24 Hours 07/15/24 07/16/24 07/17/24 23:59 23:59 23:59 Intake Total 2440 / 2440 1360 / 1360 1240 / 1240 Output Total 280 / 355 525 / 700 325 / 325 Balance 2160 / 2085 835 / 660 915 / 915 Lab / Micro Data 07/17/24 10:17 07/17/24 10:17 Labs: Laboratory Results - last 24 hr 07/16/24 11:12: Double Strand DNA Ab <1, Free [place]chbach LC, Quant 147.1 H, Free Lambda LC, Quant 54.4 H, Free [place]/Lambda Ratio 2.70 H 07/17/24 10:17: WBC 5.4, RBC 4.35, Hgb 12.3, Hct 42.1, MCV 96.8, MCH 28.3, MCHC 29.2 L, RDW Std Deviation 73.6 H, RDW Coeff of Michaelle 21.0 H, Plt Count 255, MPV 11.8, Immature Gran % (Auto) 1.100 H, Neut % (Auto) 65.4, Lymph % (Auto) 16.1 L, [place] % (Auto) 12.8 H, Eos % (Auto) 3.9, Baso % (Auto) 0.7, Absolute Neuts (auto) 3.5, Absolute Lymphs (auto) 0.87, Nucleated RBC % 0, Differential Comment SCANNED, Platelet Estimate ADEQUATE, Anisocytosis 2+, Microcytosis 1+, Macrocytosis 1+, Target Cells 1+, Tear Drop Cells 1+, Sodium 139, Potassium 4.4, Chloride 102, Carbon Dioxide 30.0, Anion Gap 7, BUN 90 H, Creatinine 3.45 H, Estim Creat Clear Calc 37.55, Est GFR (MDRD) Af Amer 18 L, Est GFR (MDRD) Non-Af 15 L, BUN/Creatinine Ratio 26.1 H, Glucose 101, Calcium 9.4, Phosphorus 6.3 H, Magnesium 2.5, Total Bilirubin 0.70, AST 20, ALT 19, Alkaline Phosphatase 88, B- Natriuretic Peptide 105.9 H, Total Protein 7.7, Albumin 3.0 L, Globulin 4.7 H, A lbumin/Globulin Ratio 0.6 L Micro: Microbiology 07/08/24 10:51 Mucosa - Nasopharyngeal SARS-CoV-2, Influenza & RSV (PCR) - Final 07/02/24 14:15 Blood Culture (Wb) - Arm Left Blood Culture - Final No growth in 5 days. 07/02/24 13:05 Blood Culture (Wb) - Anticubital Right Blood Culture - Final No growth in 5 days. 07/02/24 14:09 Urine, Clean Catch Urine Culture - Final Presumptive E. coli 07/02/24 22:00 Mucosa - Nasopharyngeal Respiratory Panel (PCR) - Final 07/02/24 13:01 Mucosa - Nose SARS-CoV-2, Influenza & RSV (PCR) - Final Radiography Diagnostic Testing: Radiology Impression Chest X-Ray 07/16/24 20:30 IMPRESSION: Persistent but improved cardiomegaly and pulmonary vascular congestion. Mild improved appearance of the hazy lung opacities with better visualization of the right hemidiaphragm. Electronically Signed: Joaquina Soliz MD at 22:24 EST , Physical Exam Narrative Alert awake oriented x 3 no obvious distress no pallor no icterus no JVD s1s2 no murmurs lungs clear abdomen soft no organomegaly no edema no cyanosis rudolph + Assessment & Plan Assessment/Plan (1) Acute renal failure: PLAN: Baseline creatinine is normal. Creatinine was close to baseline as of 4 days ago. Progressive increase in creatinine over the last 3 days. Rudolph catheter indwelling. Renal ultrasound without any hydronephrosis. Urine analysis shows few leukocytes, RBC, 1+ protein. She has a Rudolph catheter indwelling hence urine analysis may not be reliable. Originally presented with shortness of breath. Initial chest x-ray was consistent with pulmonary edema. However BNP was about 150. Typically BNP can be artificially low and morbid obesity but this is somewhat too low. Echocardiogram with good ejection fraction, read as normal right ventricular hence I am likely there is any component of right heart failure as well. There is no history of cirrhosis. Etiology of fluid overload unclear. To rule out inflammatory etiologies, I sent glomerulonephritis serologies as well. IV fluids better today dw hospitalist
[2024-07-17 21:15] VITALS: BP 122/68; PULSE 89; RESP 18; TEMP 36.1; O2SAT 92
[2024-07-17] MEDS: MELATONIN 3 MG TABLET PO (23:47)
--- NOTE | 2024-07-18 02:08 | CPS ---
patient does not want to wear the BIPAP at this time. on 4L NC instead
--- NOTE | 2024-07-18 02:10 | CPS ---
patient not ready to wear the BIPAP at this time; asked that RT come back in 30 minutes
[2024-07-18 03:15] VITALS: BP 109/58; PULSE 85; RESP 20; TEMP 36.3; O2SAT 96
[2024-07-18 04:13] VITALS: BMI 78.0
[2024-07-18 07:13] LABS: Anion Gap 10 (5-15); BUN 86 mg/dL (7-18); BUN/Creat Ratio 36.1 RATIO (10-20); Calcium,Total 9.1 mg/dL (8.5-10.1); Chloride 105 mmol/L (98-107); Creatinine, Serum 2.38 mg/dL (0.55-1.02); EST Glomerular Filtration Rate 23 mL/min (>60); Est Glom Filt Rate - Afr Amer 28 mL/min (>60); Estimated Creatinine Clearance 54.45 ml/min; Glucose 83 mg/dL (74-106); Potassium 4.5 mmol/L (3.5-5.1); Sodium Level 142 mmol/L (136-145)
[2024-07-18] MEDS: Dicyclomine 10 MG Capsule PO ×3 (08:24→16:03)
[2024-07-18] MEDS: Nystatin Powder 15gm Bottle 1 APPLIC TOPICAL (08:25)
[2024-07-18 08:29] VITALS: O2SAT 95
[2024-07-18 09:24] VITALS: BP 109/62; PULSE 87; RESP 20; TEMP 36.7; O2SAT 94
--- NOTE | 2024-07-18 10:48 | PCM.DC.SUM ---
Providers Date of Admission: 07/02/24 Date of Discharge: 07/18/24 Primary Care Physician: Dr. Charu Carpenter MD Consultations 07/08/24 07:43 Consult: Coding Support Specialist / Pulmonary Medicine Routine Consulting Provider: Intensivists/Pulmonary Med Reason for Consult: chronic respiratory failure EMERGENT Consult: No Notified: Yes Date Notified: 07/08/24 Time Notified: 07:43 Method of Notification: Verbal 07/16/24 07:54 Consult: Nephrology Routine Consulting Provider: Masha Gooden Reason for Consult: erin EMERGENT Consult: No Notified: Yes Date Notified: 07/16/24 Time Notified: 09:11 Method of Notification: Text Reason For Visit: HYPOXIA Diagnosis Discharge Diagnosis (1) Acute renal failure: Status: Acute Code(s): N17.9 - Acute kidney failure, unspecified Plan Acute on chronic hypoxic and hypercapnic respiratory failure -Multifactorial KEAGAN/OHS/acute on chronic HFpEF -Echocardiogram overall looks pretty good -BNP was elevated at greater than 100 in the setting of morbid obesity which I suspect makes his pretty significant -Is -19.1 L for her hospitalization -With a change in weight of about 20 kg -BNP is likely chronically elevated but down from admission -Respiratory status remained stable on 2 to 3 L nasal cannula -Suspect baseline pCO2 is between 70 and 80 -Will need continued BiPAP at discharge ERIN -Secondary to prerenal azotemia from diuresis -I do feel the patient will need to remain on the dry side in order to optimize cardiac function and her ability to oxygenate -Urine output has picked up and renal function is much improved in the last 24 hours -Continue Huang -Renal ultrasound is unremarkable -Will give 1 more liter IV fluids -Autoimmune lab pending -Will fluid challenge with another liter today as rate of rise did improve with volume repletion yesterday however still there was a bump from her baseline Hyponatremia -Remains resolved -This would be a good marker for pending heart failure in the future E. coli UTI -Antibiotic completed Morbid obesity -BMI 78 -Complicates treatment, prognosis, outcomes -Recommend weight loss DVT prophylaxis -Continue heparin 5000 units 3 times daily CODE STATUS -Full code Medications at Discharge Home Medications acetaminophen 325 mg capsule 650 mg PO Q4H PRN fever 07/02/24 albuterol sulfate 2.5 mg/3 mL (0.083 %) solution for nebulization 2.5 mg inhalation Q4H PRN shortness of breath or wheezing 07/02/24 aluminum-magnesium hydroxide 200 mg-200 mg/5 mL oral suspension (MAG-AL) 30 ml PO Q4H PRN GI DISTRESS 07/02/24 ascorbic acid (vitamin C) 500 mg capsule 500 mg PO DAILY 07/02/24 bisacodyl 10 mg rectal suppository 10 mg [place] DAILY PRN constipation 07/02/24 dextromethorphan-guaifenesin 10 mg-100 mg/5 mL oral liquid (Biocotron) 5 ml PO Q6H PRN cough 07/02/24 ergocalciferol (vitamin D2) 1,250 mcg (50,000 unit) capsule (Vitamin D2) 1,250 mcg PO QWEEK 07/02/24 guaifenesin 100 mg/5 mL oral liquid (Adult Tussin Chest Congestion) 200 mg PO Q4H PRN congestion 07/02/24 hydroxyzine HCl 25 mg tablet 25 mg PO TID PRN RESTLESSNESS 07/02/24 miconazole nitrate 2 % topical powder (Antifungal (miconazole)) 1 applic topical DAILY 07/02/24 multivit,stress formula-zinc tablet (Stress B With Zinc tablet) 1 tab PO DAILY 07/02/24 multivitamin (Daily Multi-Vitamin tablet) 1 tab PO DAILY 07/02/24 ondansetron 4 mg disintegrating tablet 4 mg PO Q8H PRN nausea and vomiting 07/02/24 polyethylene glycol 3350 17 gram/dose oral powder (ClearLax) 17 g PO DAILY PRN constipation 07/02/24 sodium phosphates 19 gram-7 gram/118 mL enema (Enema) 118 ml [place] DAILY PRN constipation 07/02/24 spironolactone 25 mg tablet 25 mg PO DAILY 07/02/24 dicyclomine 10 mg capsule 10 mg PO TIDAC #0 caps 07/18/24 furosemide 80 mg tablet (Lasix) 80 mg PO BID #1 TAB 07/18/24 heparin (porcine) 5,000 unit/mL injection solution 5,000 unit subcut Q8 #0 mL 07/18/24 nystatin 100,000 unit/gram topical powder (Nyamyc) 1 applic topical BID #0 grams 07/18/24 Hospital Course Procedures 2-D Echocardiogram and - (Chest x-ray x 3/venous duplex/renal ultrasound) Summary of Care Provided Minutes Spent on Discharge: 39 Hospital Course: Mrs. Duke is a super morbidly obese 49-year-old white female who was transferred from [facility] on 07/02/2024 due to hypoxia. The patient has been on oxygen she reported with unclear amounts while at the nursing facility and she is currently residing there after suffering a knee injury and being admitted to [facility]. She had only been there 3 days at the time of transfer to our emergency department. Patient reported that she has admittedly been a bit of confused on presentation and was not clear if she was on a CPAP or had a diagnosis of sleep apnea. She stated that prior to going to [facility] she had no diagnosed medical problems and was placed on Lasix and sent this in the [facility]. She indicated she did not feel that her lower extremities were more edematous and had been when she was discharged from [facility] but did note that she had increased shortness of breath and possibly some intermittent cough. She had no chest pain, fevers, or chills but did states she has been somewhat constipated. Vital signs on presentation showed a temperature of 97.6, heart rate 107, respiratory rate was between 10 and 19, blood pressure was 132/81 and pulse ox was 100% on nonrebreather. CBC was overtly unremarkable. She did have a left shift with an 82.5% neutrophilia. Coags did show a mildly elevated D-dimer at 1.84. Chemistry panel on presentation showed normal electrolytes but she did have a serum bicarb of greater than 45. Creatinine was 0.59. Glucose was 121. Bilirubin was 1.80. BNP was elevated at 105.6. Chest x-ray showed vascular congestion, CHF, and cardiomegaly. Given her elevated D-dimer venous duplex were performed and negative for DVT. I will suspected on admission for respiratory failure was related to volume overload heart failure and she was placed on BiPAP, IV Lasix, fluid restriction and a sodium restricted diet. A.m. echocardiogram was performed and showed an EF of 60% with concentric LVH that was moderate nature and stage I diastolic dysfunction. Unfortunately, the quality of study was poor due to body habitus. Pulmonary artery pressures were estimated at 39 mmHg. She was placed on a Lasix drip and for the admission has diuresed over 20 L of fluids. And lost about 20 kg. Unfortunately, with her Lasix drip her creatinine is slowly trended up, and her creatinine peaked at 4.52. Renal ultrasound was ordered and found to be unremarkable. Urine studies were consistent with prerenal azotemia and she was given back some fluid gently over 2 days with a total of 3 L being given back. We highly suspect the etiology of her respiratory failure was volume overload related to right-sided heart failure from untreated sleep apnea and chronic hypoxia. She was maintained on BiPAP with naps and at night after she came off continuous BiPAP and will do so after discharge. If she does not wear her BiPAP she is high risk for readmission. She was found to have urinary tract infection with E. coli and completed treatment prior to discharge. With gentle hydration her renal function did improve to the point where she was 2.38 on discharge. We will hold diuretics for the next 48 hours and then plan to reinstitute them on 07/20/2024 at 80 mg p.o. twice daily of Lasix. We have asked that she be weighed on a daily basis and if she gains more than 2 pounds in a 24-hour period to give an extra dose of diuretic. She will need to have her renal function monitored closely I have asked that a repeat BMP be performed on 07/23/2024. I do anticipate that she will have to have some CKD to maintain appropriate respiratory status and to keep her on the Starling curve with regards to her heart. I would say an acceptable creatinine for her would be between 1.5 and 2.5. If she starts to trend higher than 2.5 her diuretics will need to be adjusted. She will retire required continue oxygen between 3 and 4 L at rest and between 4 and 6 with exertion.. We have advised that she follow-up with her primary care physician within 1 week after discharge from the nursing facility as her mobility improves. Patient definitely needs outpatient polysomnography. With her super morbid obesity will continue DVT prophylaxis at the time of discharge as she is high risk for development of VTE due to lack of mobility Discharge diagnoses: Acute on chronic hypoxic and hypercapnic respiratory failure ERIN Hyponatremia E. coli UTI-resolved Morbid obesity Suspected KEAGAN Suspected OHS Physical Exam Const alert, oriented x3, no apparent distress, no limitations and well nourished; Negative for average body habitus or healthy appearing Constitutional Narrative: Very pleasant, super morbidly obese, white female, sitting up in bed, watching television, appears comfortable, nontoxic, currently on 3 L nasal cannula and appears like she is breathing comfortably General Appearance: cooperative, comfortable, well kempt and well developed Orientation / Consciousness: awake, oriented to person, oriented to place and oriented to time Exam Limitations: no limitations Nutritional Appearance: morbidly obese HEENT normocephalic, head/scalp atraumatic, hearing grossly normal bilaterally and moist oral mucous membranes HEENT Narrative: Mallampati 4, no thrush Eyes EOMs intact bilaterally Eyes Narrative: No scleral icterus Neck supple Neck Narrative: Neck is short and thick Resp normal respiratory effort, no retractions, no use of accessory muscles and clear to auscultation bilaterally Resp Narrative: Distant due to body habitus Auscultation: Negative for rales, rhonchi or wheezes Cardio regular rate, regular rhythm, S1 normal heart sound, S2 normal heart sound, no murmurs, no rub, no gallops and no clicks GI normal to inspection, nondistended, normoactive bowel sounds, soft to palpation and non-tender GI Narrative: Large protuberant abdomen Extremity Extremity Narrative: No significant edema noted this time, no cyanosis or clubbing Skin skin turgor normal, no jaundice, no petechiae and no mottling Skin Narrative: Skin on legs is dry Neuro oriented x3, moves all extremities and no focal motor deficits Neuro Narrative: Marked generalized weakness but no focal deficit Speech: speech normal Psych affect normal Psych Narrative: Affect remains a bit flat, patient makes good eye contact and appears to interact appropriately Weight / BMI Weight Weight: 219.4 kg Body Mass Index (BMI) 78.0 ABG / Lab / Microbiology Data 07/17/24 10:17 07/18/24 04:28 Laboratory: Laboratory Results - last 24 hr 07/16/24 11:12: Double Strand DNA Ab <1, Free [place] LC, Quant 147.1 H, Free Lambda LC, Quant 54.4 H, Free [place]/Lambda Ratio 2.70 H 07/18/24 04:28: Sodium 142, Potassium 4.5, Chloride 105, Carbon Dioxide 27.0, Anion Gap 10, BUN 86 H, Creatinine 2.38 H, Estim Creat Clear Calc 54.45, Est GFR (MDRD) Af Amer 28 L, Est GFR (MDRD) Non-Af 23 L, BUN/Creatinine Ratio 36.1 H, Glucose 83, Calcium 9.1 Microbiology: Microbiology 07/08/24 10:51 Mucosa - Nasopharyngeal SARS-CoV-2, Influenza & RSV (PCR) - Final 07/02/24 14:15 Blood Culture (Wb) - Arm Left Blood Culture - Final No growth in 5 days. 07/02/24 13:05 Blood Culture (Wb) - Anticubital Right Blood Culture - Final No growth in 5 days. 07/02/24 14:09 Urine, Clean Catch Urine Culture - Final Presumptive E. coli 07/02/24 22:00 Mucosa - Nasopharyngeal Respiratory Panel (PCR) - Final 07/02/24 13:01 Mucosa - Nose SARS-CoV-2, Influenza & RSV (PCR) - Final D/C Instructions Discharge Diet: Low fat / Low cholesterol (1500 cc fluid restriction/2 g salt restriction) and 1800 Calorie Control Diet DC O2, CPAP, BIPAP Needs PSN CPAP & BiPAP: BiPAP & CPAP Settings per PSN Mode BiPAP 07/15/24 23:50 Bipap Delivery Device Face Mask 07/15/24 02:53 BiPAP Inspiratory Pressure 14 07/11/24 00:03 BiPAP Expiratory Pressure 8 07/15/24 02:53 BiPAP Rate 14 07/15/24 02:53 Fraction of Inspired Oxygen ( 35 07/15/24 02:53 FIO2) Home O2 Discharge instructions: Yes Type of respiratory needs?: Oxygen Oxygen frequency: Continuous Continuous oxygen liters per minute: 3-4 and With Ambulation Oxygen liters per minute during Ambulation: 4-6 and BiPAP BiPAP oxygen liters per minute: 3-4 BiPAP instructions: Patient must wear at night and with all naps DC home with Oxygen: Yes Home O2 MD Review: I have reviewed the oxygen testing, and the patient qualifies for home oxygen equipment and portability. The patient is mobile in the home and the community. Meaningful Use Info Meaningful Use Meaningful Use Diagnoses (Choose all that apply): None applicable Ischemic Stroke Statin Dosing Therapy Reference: STATIN DOSE THERAPY REFERENCE: * Patients > 75 years receive moderate or high dose statin therapy. * Patients 75 years or YOUNGER should receive HIGH intensity statin dose unless contraindicated. You will be required to document reason for non-treatment if statin daily dose does not meet guidelines. HIGH DOSE STATIN THERAPY DAILY Atorvastatin > than or = to 40 mg Rosuvastatin > than or = to 20 mg Amlodipine + Atorvastatin > than or = to 2.5/40 mg Ezetimibe + Simvastatin 10/80 mg Simvastatin 80mg Discharge Plan Admission Admit Date/Time: 07/02/24 15:21 Primary Reason for Your Visit: Shortness of breath and hypoxia Attending Provider: Ema Keane Primary Care Provider: Charu Carpenter Consulting Providers: Soraida Black; Eliot Zafar; Efrain Pena; Masha Gooden Instructions Additional Instructions / Restrictions: 1. Patient MUST wear BiPAP with naps and nocturnally if not she is high risk for readmission to hospital 2. Lasix to start on 07/20/2024. Please weigh the patient on a daily basis and compared to weight upon arrival and if weight increases more than 2 pounds in a 24-hour period please dose an extra dose of diuretic. 3. Patient must be on a fluid restricted and sodium restricted diet to 1500 cc and 2 g or less respectively. 4. Caloric restriction to 1800 kcal daily 5. Please recheck BMP on 07/23/2024. Continue diuretic as long as renal function is between 1.5 and 2.0 if not please contact physician. Discharge Orders/Prescriptions Prescriptions: New nystatin [Nyamyc] 100,000 unit/gram Powder 1 applic topical BID Qty: 0 0RF Protocol: *Topical Application Instructions APPLICATION INSTRUCTIONS: Apply to affected areas heparin (porcine) 5,000 unit/mL Solution 5,000 unit subcut Q8 Qty: 0 0RF dicyclomine 10 mg Capsule 10 mg PO TIDAC Qty: 0 0RF furosemide [Lasix] 80 mg tablet 80 mg PO BID Qty: 1 0RF Rx Instructions: Started on 07/20/2024 Continued acetaminophen 325 mg capsule 650 mg PO Q4H PRN (Reason: fever) albuterol sulfate 2.5 mg /3 mL (0.083 %) solution for nebulization 2.5 mg inhalation Q4H PRN (Reason: shortness of breath or wheezing) MAG-AL 200-200 mg/5 mL suspension 30 ml PO Q4H PRN (Reason: GI DISTRESS) bisacodyl 10 mg suppository 10 mg KY DAILY PRN (Reason: constipation) dextromethorphan-guaifenesin [Biocotron] 10-100 mg/5 mL liquid 5 ml PO Q6H PRN (Reason: cough) Enema 19-7 gram/118 mL enema 118 ml KY DAILY PRN (Reason: constipation) Rx Instructions: IF BISACODYL INEFFECTIVE guaifenesin [Adult Tussin Chest Congestion] 100 mg/5 mL liquid 200 mg PO Q4H PRN (Reason: congestion) miconazole nitrate [Antifungal (miconazole)] 2 % powder 1 applic topical DAILY ergocalciferol (vitamin D2) [Vitamin D2] 1,250 mcg (50,000 unit) capsule 1,250 mcg PO QWEEK multivitamin [Daily Multi-Vitamin] Tablet 1 tab PO DAILY Stress B With Zinc Tablet 1 tab PO DAILY ondansetron 4 mg tablet,disintegrating 4 mg PO Q8H PRN (Reason: nausea and vomiting) ascorbic acid (vitamin C) 500 mg capsule 500 mg PO DAILY hydroxyzine HCl 25 mg tablet 25 mg PO TID PRN (Reason: RESTLESSNESS) polyethylene glycol 3350 [ClearLax] 17 gram/dose powder 17 g PO DAILY PRN (Reason: constipation) Held spironolactone 25 mg tablet 25 mg PO DAILY Hold Instructions: 1 week Discontinued acetaminophen 650 mg suppository 650 mg KY Q4H torsemide 20 mg tablet 20 mg PO BID Referrals / Follow Up: Charu Carpenter MD [Primary Care Provider] - See Referral Note (1 week after discharge from skilled facility) Disposition Disposition (needs filled in before D/C Order can be placed): [facility] Facility Charges/Coding Visit Charges Inpatient E&M: 92156 SNF Disch >30 Min
[2024-07-18 11:02] VITALS: BP 107/64; PULSE 88; RESP 18; TEMP 36.5; O2SAT 97
--- NOTE | 2024-07-18 11:09 | PCM.TXEXTCAR ---
Diet Diet Order/Speech Therapy: 07/02/24 18:14 Diet: Cardiac - Heart Healthy Food consistency:: Regular Liquid Consistency:: Regular/Thin Fluid restriction:: 2000 mL Diet Comments: salt free seasoning packet w/ all meals Routine Orders/Code Status Suppository Frequency: Daily PRN Routine Lab Work: CBC (2 weeks) and BMP (on 07/23/2024) Code Status: Full Code DC O2, CPAP, BIPAP needs PSN CPAP & BiPAP: BiPAP & CPAP Settings per PSN Mode BiPAP 07/15/24 23:50 Bipap Delivery Device Face Mask 07/15/24 02:53 BiPAP Inspiratory Pressure 14 07/11/24 00:03 BiPAP Expiratory Pressure 8 07/15/24 02:53 BiPAP Rate 14 07/15/24 02:53 Fraction of Inspired Oxygen ( 35 07/15/24 02:53 FIO2) Home O2 Discharge instructions: Yes Type of respiratory needs?: Oxygen Oxygen frequency: Continuous Continuous oxygen liters per minute: 3-4 and With Ambulation Oxygen liters per minute during Ambulation: 4-6 and BiPAP BiPAP oxygen liters per minute: 3-4 BiPAP instructions: Patient must wear at night and with all naps Wound(s) coccyx: Wound Type: scratch Right buttock: Wound Type: Scrape left buttock: Wound Type: Abrasion Suggestions for Active Care Change Position every (hours): 2 Hours to sit in a chair: 3 Times a day to sit in chair: 2 Therapies Weight Bearing: Full weight bearing Physical Therapy: Eval and Treat Occupational Therapy: Eval and Treat Problem/Diagnosis (1) Acute renal failure: Status: Acute Code(s): N17.9 - Acute kidney failure, unspecified Allergies/Procedures Done in Hospital Allergies No Known Allergies Allergy (Verified 07/02/24 12:35) Procedures: 2-D Echocardiogram and - (Renal US/CXR) Type of Care/Length of Stay Estimated LOS: More Than 30 Days Type of Care Needed: Intermediate Rehab Potential: Fair Prognosis: Fair Additional Orders/Day of Discharge Additional Orders: 1. Patient MUST wear BiPAP with naps and nocturnally if not she is high risk for readmission to hospital 2. Lasix to start on 07/20/2024. Please weigh the patient on a daily basis and compared to weight upon arrival and if weight increases more than 2 pounds in a 24-hour period please dose an extra dose of diuretic. 3. Patient must be on a fluid restricted and sodium restricted diet to 1500 cc and 2 g or less respectively. 4. Caloric restriction to 1800 kcal daily 5. Please recheck BMP on 07/23/2024. Continue diuretic as long as renal function is between 1.5 and 2.0 if not please contact physician. Day of Discharge: 07/18/24 Dietary and Speech Recommendations Dietitian Recommendations/Changes: Continue cardiac diet with 2000ml fluid restriction. Will add salt free seasoning packet TID with meal trays. Pt would benefit from seeing outpatient RD for weight loss counseling. Reviewed and approved by Jie Chavis, ROSS, LD. Discharge Plan Admission Admit Date/Time: 07/02/24 15:21 Primary Reason for Your Visit: Shortness of breath and hypoxia Attending Provider: Ema Keane Primary Care Provider: Charu Carpenter Consulting Providers: Soraida Black; Eliot Zafar; Efrain Pena; Masha Gooden Instructions Additional Instructions / Restrictions: 1. Patient MUST wear BiPAP with naps and nocturnally if not she is high risk for readmission to hospital 2. Lasix to start on 07/20/2024. Please weigh the patient on a daily basis and compared to weight upon arrival and if weight increases more than 2 pounds in a 24-hour period please dose an extra dose of diuretic. 3. Patient must be on a fluid restricted and sodium restricted diet to 1500 cc and 2 g or less respectively. 4. Caloric restriction to 1800 kcal daily 5. Please recheck BMP on 07/23/2024. Continue diuretic as long as renal function is between 1.5 and 2.0 if not please contact physician. Discharge Orders/Prescriptions Prescriptions: New nystatin [Nyamyc] 100,000 unit/gram Powder 1 applic topical BID Qty: 0 0RF Protocol: *Topical Application Instructions APPLICATION INSTRUCTIONS: Apply to affected areas heparin (porcine) 5,000 unit/mL Solution 5,000 unit subcut Q8 Qty: 0 0RF dicyclomine 10 mg Capsule 10 mg PO TIDAC Qty: 0 0RF furosemide [Lasix] 80 mg tablet 80 mg PO BID Qty: 1 0RF Rx Instructions: Started on 07/20/2024 Continued acetaminophen 325 mg capsule 650 mg PO Q4H PRN (Reason: fever) albuterol sulfate 2.5 mg /3 mL (0.083 %) solution for nebulization 2.5 mg inhalation Q4H PRN (Reason: shortness of breath or wheezing) MAG-AL 200-200 mg/5 mL suspension 30 ml PO Q4H PRN (Reason: GI DISTRESS) bisacodyl 10 mg suppository 10 mg CO DAILY PRN (Reason: constipation) dextromethorphan-guaifenesin [Biocotron] 10-100 mg/5 mL liquid 5 ml PO Q6H PRN (Reason: cough) Enema 19-7 gram/118 mL enema 118 ml CO DAILY PRN (Reason: constipation) Rx Instructions: IF BISACODYL INEFFECTIVE guaifenesin [Adult Tussin Chest Congestion] 100 mg/5 mL liquid 200 mg PO Q4H PRN (Reason: congestion) miconazole nitrate [Antifungal (miconazole)] 2 % powder 1 applic topical DAILY ergocalciferol (vitamin D2) [Vitamin D2] 1,250 mcg (50,000 unit) capsule 1,250 mcg PO QWEEK multivitamin [Daily Multi-Vitamin] Tablet 1 tab PO DAILY Stress B With Zinc Tablet 1 tab PO DAILY ondansetron 4 mg tablet,disintegrating 4 mg PO Q8H PRN (Reason: nausea and vomiting) ascorbic acid (vitamin C) 500 mg capsule 500 mg PO DAILY hydroxyzine HCl 25 mg tablet 25 mg PO TID PRN (Reason: RESTLESSNESS) polyethylene glycol 3350 [ClearLax] 17 gram/dose powder 17 g PO DAILY PRN (Reason: constipation) Held spironolactone 25 mg tablet 25 mg PO DAILY Hold Instructions: 1 week Discontinued acetaminophen 650 mg suppository 650 mg CO Q4H torsemide 20 mg tablet 20 mg PO BID Referrals / Follow Up: Charu Carpenter MD [Primary Care Provider] - See Referral Note (1 week after discharge from skilled facility) Disposition Disposition (needs filled in before D/C Order can be placed): [facility]
--- NOTE | 2024-07-18 13:34 | NURSING ---
Report given to Celia from [facility] @ [phone]
[2024-07-18] MEDS: Heparin Injection (Vial) 5,000 UNIT/ML VIAL 5000 UNIT SC (14:02)
[2024-07-18 14:07] LABS: Anti-Glomerular Basement Memb < 0.2 units (0.0-0.9); Complement C3 161 mg/dL (82-167); Cytoplasmic Ab (C-ANCA) <1:20 titer (Neg:<1:20); PROEL- A/G Ratio 0.7 (0.7-1.7); PROEL- Albumin 3.1 g/dL (2.9-4.4); PROEL- Alpha-1 Globulin 0.3 g/dL (0.0-0.4); PROEL- Alpha-2 Globulin 0.9 g/dL (0.4-1.0); PROEL- Beta Globulin 1.3 g/dL (0.7-1.3); PROEL- Gamma Globulin 1.9 g/dL (0.4-1.8); PROEL- Globulin, Total 4.3 g/dL (2.2-3.9); PROEL- TOTAL PROTEIN 7.4 g/dL (6.0-8.5); PROEL-M-Spike Not Observed g/dL (Not Observed); Perinuclear Ab (P-ANCA) <1:20 titer (Neg:<1:20)
[2024-07-18 15:25] VITALS: BP 107/64; PULSE 88; RESP 18; TEMP 36.5; O2SAT 97
== END 2024-07-18 17:38 | disposition skilled nursing facility (03) | DRG 133 ==
LOC: ED 13:56 → PCU 17:57
PROVIDERS: Internal Medicine; Internal Medicine Critical Care Medicine; Internal Medicine Nephrology; Admitting Provider Internal Medicine; Emergency Provider Emergency Medicine; PCP Internal Medicine; Visit Provider Internal Medicine
DX: J96.21 Acute and chronic respiratory failure with hypoxia (principal); G93.41 Metabolic encephalopathy; I50.33 Acute on chronic diastolic (congestive) heart failure; Z68.45 Body mass index [BMI] 70 or greater, adult; J96.22 Acute and chronic respiratory failure with hypercapnia; E66.2 Morbid (severe) obesity with alveolar hypoventilation; E87.6 Hypokalemia; N17.9 Acute kidney failure, unspecified; E66.813 Obesity, class 3; B96.20 Unspecified Escherichia coli [E. coli] as the cause of diseases classified elsewhere; Z11.52 Encounter for screening for COVID-19; N39.0 Urinary tract infection, site not specified; Z79.51 Long term (current) use of inhaled steroids; Z79.899 Other long term (current) drug therapy
CPT/HCPCS: 36415; 36600; 51702; 71045; 71046; 76770; 80048; 80053; 80061; 81001; 82570; 82803; 82962; 83520; 83605; 83735; 83880; 83883; 84100; 84145; 84156; 84165; 84300; 84443; 84484; 84540; 85025; 85379; 85610; 85730; 86037; 86160; 86225; 87040; 87086; 87088; 87186; 87631; 87633; 93005; 93306; 93970; 94002; 94003; 94640; 94668; 94762; 97110; 97162; 97166; 97530; 97535; 97802; 97803; 99285; Q9957; A4216; J1940; J2405

== ENCOUNTER → 2024-07-20 06:00 | Outpatient (REF) | payer MEDICAID, SELFPAY ==
[2024-07-20 08:46] LABS: Absolute Lymphocyte Count 0.88 X10^3/uL (0.83-4.51); Absolute Neutrophil Count 4.1 X10^3/uL (2.0-7.7); Basophil# 0.06 X10^3/uL; Eosinophil# 0.35 X10^3/uL; Eosinophils% 5.7 % (0-5); Hematocrit 42.4 % (37-47); Hemoglobin 12.4 g/dL (12.0-15.0); Lymphocyte # 0.88 X10^3/ul (0.83-4.51); Lymphocyte % 14.3 % (19-41); Mean Corp Hgb Conc 29.2 g/dL (32-36); Mean Corpuscular Hgb 28.1 pg (27.0-32.0); Mean Corpuscular Volume 96.1 fL (81-99); Mean Platelet Vol. 12.5 fl (6.2-12.0); Monocyte# 0.73 X10^3/uL; Monocyte% 11.9 % (0-10); NRBC Flagged by Analyzer 0 % (0-5); Neutrophil # 4.07 X10^3/uL (2.7-7.7); Neutrophil % 66.1 % (47-70); POSITIVE MORPHOLOGY YES; Platelet Count 263 K/mm3 (150-450); RBC Distribution Width CV 20.3 % (11.6-14.6); Red Blood Count 4.41 M/mm3 (4.2-5.4); White Blood Count 6.2 K/mm3 (4.4-11.0)
[2024-07-20 08:47] LABS: Differential Indicated SCAN CRITERIA MET
[2024-07-20 09:40] LABS: Anion Gap 9 (5-15); BUN 53 mg/dL (7-18); BUN/Creat Ratio 45.3 RATIO (10-20); Calcium,Total 9.9 mg/dL (8.5-10.1); Chloride 101 mmol/L (98-107); Creatinine, Serum 1.17 mg/dL (0.55-1.02); EST Glomerular Filtration Rate 52 mL/min (>60); Est Glom Filt Rate - Afr Amer 63 mL/min (>60); Glucose 84 mg/dL (74-106); Potassium 3.9 mmol/L (3.5-5.1); Sodium Level 140 mmol/L (136-145)
== END ==
LOC: OLS.SW 06:00
PROVIDERS: PCP Internal Medicine; Visit Provider Internal Medicine
DX: I50.9 Heart failure, unspecified (principal); J44.9 Chronic obstructive pulmonary disease, unspecified
CPT/HCPCS: 36415; 80048; 85025

== ENCOUNTER → 2024-07-27 | Outpatient (REF) | payer MEDICAID, SELFPAY ==
[2024-07-27 09:28] LABS: Hematocrit 44.2 % (37-47); Hemoglobin 12.9 g/dL (12.0-15.0); Mean Corp Hgb Conc 29.2 g/dL (32-36); Mean Corpuscular Hgb 27.7 pg (27.0-32.0); Mean Corpuscular Volume 94.8 fL (81-99); Mean Platelet Vol. 11.8 fl (6.2-12.0); POSITIVE MORPHOLOGY YES; Platelet Count 222 K/mm3 (150-450); RBC Distribution Width CV 19.9 % (11.6-14.6); RBC Distribution Width SD 69.1 fl (35.1-43.9); Red Blood Count 4.66 M/mm3 (4.2-5.4); White Blood Count 7.7 K/mm3 (4.4-11.0)
[2024-07-27 09:58] LABS: Anion Gap 8 (5-15); BUN 31 mg/dL (7-18); BUN/Creat Ratio 36.4 RATIO (10-20); Calcium,Total 9.5 mg/dL (8.5-10.1); Chloride 92 mmol/L (98-107); Creatinine, Serum 0.85 mg/dL (0.55-1.02); EST Glomerular Filtration Rate 75 mL/min (>60); Est Glom Filt Rate - Afr Amer 90 mL/min (>60); Glucose 98 mg/dL (74-106); Potassium 3.3 mmol/L (3.5-5.1); Sodium Level 138 mmol/L (136-145)
[2024-07-27 09:59] LABS: Scan Indicated on CBC? Y/N YES- FLAGS NOTED
== END | disposition home or self-care (01) ==
LOC: OLS.SW 05:00
PROVIDERS: PCP Internal Medicine; Visit Provider Internal Medicine
DX: J96.90 Respiratory failure, unspecified, unspecified whether with hypoxia or hypercapnia (principal)
CPT/HCPCS: 36415; 80048; 83735; 85027

== ENCOUNTER → 2024-07-31 | Outpatient (REF) | payer MEDICAID, SELFPAY ==
[2024-07-31 10:24] LABS: Anion Gap 4 (5-15); BUN 18 mg/dL (7-18); BUN/Creat Ratio 23.7 RATIO (10-20); Calcium,Total 9.6 mg/dL (8.5-10.1); Chloride 92 mmol/L (98-107); Creatinine, Serum 0.76 mg/dL (0.55-1.02); EST Glomerular Filtration Rate 85 mL/min (>60); Est Glom Filt Rate - Afr Amer 103 mL/min (>60); Glucose 100 mg/dL (74-106); Potassium 3.5 mmol/L (3.5-5.1); Sodium Level 135 mmol/L (136-145)
== END | disposition home or self-care (01) ==
LOC: OLS.SW 04:00
PROVIDERS: PCP Internal Medicine; Referring Provider Internal Medicine; Visit Provider Internal Medicine
DX: J96.21 Acute and chronic respiratory failure with hypoxia (principal)
CPT/HCPCS: 36415; 80048

== ENCOUNTER → 2024-08-03 | Outpatient (REF) | payer MEDICAID, SELFPAY ==
[2024-08-03 09:42] LABS: Absolute Neutrophil Count 4.9 X10^3/uL (2.0-7.7); Basophil# 0.06 X10^3/uL; Basophil% 0.8 % (0-1); Eosinophil# 0.29 X10^3/uL; Hematocrit 43.4 % (37-47); Hemoglobin 12.6 g/dL (12.0-15.0); Lymphocyte % 15.1 % (19-41); Mean Corpuscular Hgb 27.4 pg (27.0-32.0); Mean Corpuscular Volume 94.3 fL (81-99); Mean Platelet Vol. 11.9 fl (6.2-12.0); Monocyte% 12.3 % (0-10); NRBC Flagged by Analyzer 0 % (0-5); Neutrophil # 4.91 X10^3/uL (2.7-7.7); Neutrophil % 67.4 % (47-70); Platelet Count 232 K/mm3 (150-450); RBC Distribution Width CV 18.4 % (11.6-14.6); RBC Distribution Width SD 63.8 fl (35.1-43.9); White Blood Count 7.3 K/mm3 (4.4-11.0)
[2024-08-03 09:44] LABS: Anion Gap 6 (5-15); BUN 18 mg/dL (7-18); BUN/Creat Ratio 22.1 RATIO (10-20); Calcium,Total 10.1 mg/dL (8.5-10.1); Chloride 91 mmol/L (98-107); Creatinine, Serum 0.82 mg/dL (0.55-1.02); EST Glomerular Filtration Rate 79 mL/min (>60); Est Glom Filt Rate - Afr Amer 95 mL/min (>60); Glucose 98 mg/dL (74-106); Potassium 3.7 mmol/L (3.5-5.1); Sodium Level 135 mmol/L (136-145)
== END | disposition home or self-care (01) ==
LOC: OLS.SW 05:00
PROVIDERS: PCP Internal Medicine; Visit Provider Internal Medicine
DX: J96.21 Acute and chronic respiratory failure with hypoxia (principal)
CPT/HCPCS: 36415; 80048; 85025

== ENCOUNTER → 2024-08-17 | Outpatient (REF) | payer MEDICAID, SELFPAY ==
[2024-08-17 10:05] LABS: Absolute Lymphocyte Count 1.13 X10^3/uL (0.83-4.51); Absolute Neutrophil Count 4.5 X10^3/uL (2.0-7.7); Basophil# 0.05 X10^3/uL; Basophil% 0.8 % (0-1); Eosinophil# 0.19 X10^3/uL; Eosinophils% 2.9 % (0-5); Hematocrit 41.9 % (37-47); Hemoglobin 12.5 g/dL (12.0-15.0); Lymphocyte # 1.13 X10^3/ul (0.83-4.51); Lymphocyte % 17.3 % (19-41); Mean Corp Hgb Conc 29.8 g/dL (32-36); Mean Corpuscular Hgb 28.5 pg (27.0-32.0); Mean Corpuscular Volume 95.4 fL (81-99); Mean Platelet Vol. 11.5 fl (6.2-12.0); Monocyte# 0.66 X10^3/uL; Monocyte% 10.1 % (0-10); NRBC Flagged by Analyzer 0 % (0-5); Neutrophil # 4.47 X10^3/uL (2.7-7.7); Neutrophil % 68.3 % (47-70); Platelet Count 235 K/mm3 (150-450); RBC Distribution Width CV 16.7 % (11.6-14.6); RBC Distribution Width SD 58.8 fl (35.1-43.9); Red Blood Count 4.39 M/mm3 (4.2-5.4); White Blood Count 6.5 K/mm3 (4.4-11.0)
[2024-08-17 10:18] LABS: Anion Gap 6 (5-15); BUN 15 mg/dL (7-18); BUN/Creat Ratio 21.2 RATIO (10-20); Calcium,Total 10.2 mg/dL (8.5-10.1); Chloride 94 mmol/L (98-107); Creatinine, Serum 0.71 mg/dL (0.55-1.02); EST Glomerular Filtration Rate 93 mL/min (>60); Est Glom Filt Rate - Afr Amer 112 mL/min (>60); Glucose 99 mg/dL (74-106); Potassium 3.6 mmol/L (3.5-5.1); Sodium Level 136 mmol/L (136-145)
== END | disposition home or self-care (01) ==
LOC: OLS.SW 05:00
PROVIDERS: PCP Internal Medicine; Visit Provider Internal Medicine
DX: J44.9 Chronic obstructive pulmonary disease, unspecified (principal)
CPT/HCPCS: 36415; 80048; 85025

== ENCOUNTER → 2024-08-31 07:45 | Outpatient (REF) | payer MEDICAID, SELFPAY ==
[2024-08-31 10:10] LABS: Absolute Lymphocyte Count 1.18 X10^3/uL (0.83-4.51); Absolute Neutrophil Count 4.8 X10^3/uL (2.0-7.7); Basophil# 0.06 X10^3/uL; Basophil% 0.9 % (0-1); Eosinophil# 0.18 X10^3/uL; Eosinophils% 2.6 % (0-5); Hematocrit 41.1 % (37-47); Hemoglobin 12.2 g/dL (12.0-15.0); Lymphocyte # 1.18 X10^3/ul (0.83-4.51); Lymphocyte % 17.1 % (19-41); Mean Corp Hgb Conc 29.7 g/dL (32-36); Mean Corpuscular Hgb 28.5 pg (27.0-32.0); Mean Platelet Vol. 11.4 fl (6.2-12.0); Monocyte# 0.68 X10^3/uL; Monocyte% 9.8 % (0-10); NRBC Flagged by Analyzer 0 % (0-5); Neutrophil # 4.76 X10^3/uL (2.7-7.7); Neutrophil % 68.9 % (47-70); Platelet Count 290 K/mm3 (150-450); RBC Distribution Width CV 15.9 % (11.6-14.6); RBC Distribution Width SD 55.7 fl (35.1-43.9); Red Blood Count 4.28 M/mm3 (4.2-5.4); White Blood Count 6.9 K/mm3 (4.4-11.0)
[2024-08-31 11:23] LABS: Anion Gap 9 (5-15); BUN 10 mg/dL (7-18); BUN/Creat Ratio 13.5 RATIO (10-20); Calcium,Total 9.8 mg/dL (8.5-10.1); Chloride 94 mmol/L (98-107); Creatinine, Serum 0.74 mg/dL (0.55-1.02); EST Glomerular Filtration Rate 88 mL/min (>60); Est Glom Filt Rate - Afr Amer 106 mL/min (>60); Glucose 86 mg/dL (74-106); Potassium 3.7 mmol/L (3.5-5.1); Sodium Level 136 mmol/L (136-145)
== END ==
LOC: OLS.SW 07:45
PROVIDERS: PCP Internal Medicine; Referring Provider Internal Medicine; Visit Provider Internal Medicine
DX: I50.9 Heart failure, unspecified (principal); J96.21 Acute and chronic respiratory failure with hypoxia
CPT/HCPCS: 36415; 80048; 85025

== ENCOUNTER → 2024-09-14 04:00 | Outpatient (REF) | payer MEDICAID, SELFPAY ==
[2024-09-14 09:13] LABS: Absolute Lymphocyte Count 1.55 X10^3/uL (0.83-4.51); Absolute Neutrophil Count 3.3 X10^3/uL (2.0-7.7); Basophil# 0.03 X10^3/uL; Basophil% 0.5 % (0-1); Eosinophil# 0.11 X10^3/uL; Eosinophils% 1.9 % (0-5); Hematocrit 41.3 % (37-47); Hemoglobin 12.9 g/dL (12.0-15.0); Lymphocyte # 1.55 X10^3/ul (0.83-4.51); Lymphocyte % 27.1 % (19-41); Mean Corp Hgb Conc 31.2 g/dL (32-36); Mean Corpuscular Hgb 29.2 pg (27.0-32.0); Mean Corpuscular Volume 93.4 fL (81-99); Mean Platelet Vol. 11.2 fl (6.2-12.0); Monocyte# 0.67 X10^3/uL; Monocyte% 11.7 % (0-10); NRBC Flagged by Analyzer 0 % (0-5); Neutrophil # 3.29 X10^3/uL (2.7-7.7); Neutrophil % 57.7 % (47-70); Platelet Count 246 K/mm3 (150-450); RBC Distribution Width CV 15.9 % (11.6-14.6); RBC Distribution Width SD 54.1 fl (35.1-43.9); Red Blood Count 4.42 M/mm3 (4.2-5.4); White Blood Count 5.7 K/mm3 (4.4-11.0)
[2024-09-14 09:53] LABS: Anion Gap 9 (5-15); BUN 8 mg/dL (7-18); BUN/Creat Ratio 10.3 RATIO (10-20); Calcium,Total 9.7 mg/dL (8.5-10.1); Chloride 94 mmol/L (98-107); Creatinine, Serum 0.78 mg/dL (0.55-1.02); EST Glomerular Filtration Rate 83 mL/min (>60); Est Glom Filt Rate - Afr Amer 100 mL/min (>60); Glucose 92 mg/dL (74-106); Potassium 3.1 mmol/L (3.5-5.1); Sodium Level 136 mmol/L (136-145)
== END ==
LOC: OLS.SW 04:00
PROVIDERS: PCP Internal Medicine; Referring Provider Internal Medicine; Visit Provider Internal Medicine
DX: J96.21 Acute and chronic respiratory failure with hypoxia (principal); I50.9 Heart failure, unspecified
CPT/HCPCS: 36415; 80048; 85025

== ENCOUNTER → 2024-09-18 05:00 | Outpatient (REF) | payer MEDICAID, SELFPAY ==
[2024-09-18 08:25] LABS: Anion Gap 9 (5-15); BUN 12 mg/dL (7-18); BUN/Creat Ratio 14.1 RATIO (10-20); Calcium,Total 9.4 mg/dL (8.5-10.1); Chloride 94 mmol/L (98-107); Creatinine, Serum 0.85 mg/dL (0.55-1.02); EST Glomerular Filtration Rate 75 mL/min (>60); Est Glom Filt Rate - Afr Amer 91 mL/min (>60); Glucose 101 mg/dL (74-106); Sodium Level 137 mmol/L (136-145)
== END ==
LOC: OLS.SW 05:00
PROVIDERS: PCP Internal Medicine; Visit Provider Internal Medicine
DX: J96.21 Acute and chronic respiratory failure with hypoxia (principal); I50.9 Heart failure, unspecified
CPT/HCPCS: 36415; 80048

== ENCOUNTER → 2024-09-21 05:00 | Outpatient (REF) | payer MEDICAID, SELFPAY ==
[2024-09-21 09:45] LABS: Hemoglobin A1c 5.6 % (3.8-5.6)
[2024-09-21 21:01] LABS: Anion Gap 8 (5-15); BUN 12 mg/dL (7-18); BUN/Creat Ratio 18.5 RATIO (10-20); Calcium,Total 9.2 mg/dL (8.5-10.1); Chloride 99 mmol/L (98-107); Cholesterol 172 mg/dL (200); Creatinine, Serum 0.65 mg/dL (0.55-1.02); EST Glomerular Filtration Rate 102 mL/min (>60); Est Glom Filt Rate - Afr Amer 124 mL/min (>60); Glucose 90 mg/dL (74-106); High Density Lipoprotein 61 mg/dL; Magnesium 2.5 mg/dL (1.6-2.6); Potassium 4.6 mmol/L (3.5-5.1); Sodium Level 135 mmol/L (136-145); Triglycerides 122 mg/dL; Very Low Density Lipoprotein 24 mg/dL (5-40)
== END ==
LOC: OLS.SW 05:00
PROVIDERS: PCP Internal Medicine; Visit Provider Internal Medicine
DX: E87.6 Hypokalemia (principal)
CPT/HCPCS: 36415; 80048; 80061; 83036; 83735

== ENCOUNTER → 2024-09-28 | Outpatient (REF) | payer MEDICAID, SELFPAY ==
[2024-09-28 09:20] LABS: Absolute Lymphocyte Count 1.47 X10^3/uL (0.83-4.51); Absolute Neutrophil Count 6.3 X10^3/uL (2.0-7.7); Basophil# 0.06 X10^3/uL; Basophil% 0.7 % (0-1); Eosinophils% 2.3 % (0-5); Hematocrit 41.5 % (37-47); Hemoglobin 13.1 g/dL (12.0-15.0); Lymphocyte # 1.47 X10^3/ul (0.83-4.51); Lymphocyte % 16.6 % (19-41); Mean Corp Hgb Conc 31.6 g/dL (32-36); Mean Platelet Vol. 10.5 fl (6.2-12.0); Monocyte# 0.74 X10^3/uL; Monocyte% 8.4 % (0-10); NRBC Flagged by Analyzer 0 % (0-5); Neutrophil # 6.32 X10^3/uL (2.7-7.7); Neutrophil % 71.2 % (47-70); Platelet Count 315 K/mm3 (150-450); RBC Distribution Width SD 56.1 fl (35.1-43.9); Red Blood Count 4.37 M/mm3 (4.2-5.4); White Blood Count 8.9 K/mm3 (4.4-11.0)
[2024-09-28 09:49] LABS: Anion Gap 13 (5-15); BUN 13 mg/dL (4-19); BUN/Creat Ratio 16.2 RATIO (10-20); Calcium 9.2 mg/dL (7.6-11.0); Carbon Dioxide 29.4 mmol/L (22.0-29.0); Chloride 97 mmol/L (96-108); Creatinine, Serum 0.78 mg/dL (0.70-1.20); EST Glomerular Filtration Rate 91 (>60); Glucose 109 mg/dL (70-99); Potassium 4.3 mmol/L (3.3-5.1); Sodium Level 140 mmol/L (133-145)
== END | disposition home or self-care (01) ==
LOC: OLS.SW 05:00
PROVIDERS: PCP Internal Medicine; Visit Provider Internal Medicine
DX: J96.12 Chronic respiratory failure with hypercapnia (principal); E87.6 Hypokalemia
CPT/HCPCS: 36415; 80048; 85025

== ENCOUNTER → 2024-10-12 | Outpatient (REF) | payer MEDICAID, SELFPAY ==
[2024-10-12 09:08] LABS: Absolute Lymphocyte Count 1.33 X10^3/uL (0.83-4.51); Absolute Neutrophil Count 4.9 X10^3/uL (2.0-7.7); Basophil# 0.06 X10^3/uL; Basophil% 0.8 % (0-1); Eosinophil# 0.21 X10^3/uL; Eosinophils% 2.9 % (0-5); Hematocrit 38.4 % (37-47); Hemoglobin 12.1 g/dL (12.0-15.0); Lymphocyte # 1.33 X10^3/ul (0.83-4.51); Lymphocyte % 18.1 % (19-41); Mean Corp Hgb Conc 31.5 g/dL (32-36); Mean Corpuscular Hgb 29.9 pg (27.0-32.0); Mean Corpuscular Volume 94.8 fL (81-99); Mean Platelet Vol. 11.1 fl (6.2-12.0); Monocyte# 0.77 X10^3/uL; Monocyte% 10.5 % (0-10); NRBC Flagged by Analyzer 0 % (0-5); Neutrophil # 4.88 X10^3/uL (2.7-7.7); Neutrophil % 66.6 % (47-70); Platelet Count 280 K/mm3 (150-450); RBC Distribution Width CV 15.7 % (11.6-14.6); RBC Distribution Width SD 54.1 fl (35.1-43.9); Red Blood Count 4.05 M/mm3 (4.2-5.4); White Blood Count 7.3 K/mm3 (4.4-11.0)
[2024-10-12 11:57] LABS: Anion Gap 11 (5-15); BUN 11 mg/dL (4-19); BUN/Creat Ratio 13.6 RATIO (10-20); Calcium,Total 9.6 mg/dL (7.6-11.0); Carbon Dioxide 31.1 mmol/L (21.0-32.0); Chloride 97 mmol/L (98-108); Creatinine, Serum 0.77 mg/dL (0.70-1.20); EST Glomerular Filtration Rate 93 (>60); Glucose 91 mg/dL (70-99); Potassium 3.6 mmol/L (3.3-5.1); Sodium Level 139 mmol/L (133-145)
== END | disposition home or self-care (01) ==
LOC: OLS.SW 04:00
PROVIDERS: PCP Internal Medicine; Referring Provider Internal Medicine; Visit Provider Internal Medicine
DX: J96.21 Acute and chronic respiratory failure with hypoxia (principal); J96.12 Chronic respiratory failure with hypercapnia; E87.6 Hypokalemia; I50.9 Heart failure, unspecified
CPT/HCPCS: 36415; 80048; 85025

== ENCOUNTER → 2024-10-26 | Outpatient (REF) | payer MEDICAID, SELFPAY ==
[2024-10-26 08:38] LABS: Absolute Lymphocyte Count 1.51 X10^3/uL (0.83-4.51); Absolute Neutrophil Count 4.9 X10^3/uL (2.0-7.7); Basophil# 0.06 X10^3/uL; Basophil% 0.8 % (0-1); Eosinophil# 0.14 X10^3/uL; Eosinophils% 1.9 % (0-5); Hematocrit 39.8 % (37-47); Hemoglobin 12.8 g/dL (12.0-15.0); Lymphocyte # 1.51 X10^3/ul (0.83-4.51); Lymphocyte % 20.9 % (19-41); Mean Corp Hgb Conc 32.2 g/dL (32-36); Mean Corpuscular Hgb 30.3 pg (27.0-32.0); Mean Corpuscular Volume 94.1 fL (81-99); Mean Platelet Vol. 10.9 fl (6.2-12.0); Monocyte# 0.59 X10^3/uL; Monocyte% 8.1 % (0-10); NRBC Flagged by Analyzer 0 % (0-5); Neutrophil % 67.7 % (47-70); Platelet Count 319 K/mm3 (150-450); RBC Distribution Width CV 15.3 % (11.6-14.6); RBC Distribution Width SD 52.3 fl (35.1-43.9); Red Blood Count 4.23 M/mm3 (4.2-5.4); White Blood Count 7.2 K/mm3 (4.4-11.0)
[2024-10-26 08:53] LABS: Anion Gap 14 (5-15); BUN 10 mg/dL (4-19); BUN/Creat Ratio 13.3 RATIO (10-20); Calcium,Total 9.8 mg/dL (7.6-11.0); Carbon Dioxide 26.8 mmol/L (21.0-32.0); Chloride 97 mmol/L (98-108); Creatinine, Serum 0.78 mg/dL (0.70-1.20); EST Glomerular Filtration Rate 93 (>60); Glucose 95 mg/dL (70-99); Potassium 3.9 mmol/L (3.3-5.1); Sodium Level 137 mmol/L (133-145)
== END | disposition home or self-care (01) ==
LOC: OLS.SW 04:00
PROVIDERS: PCP Internal Medicine; Referring Provider Internal Medicine; Visit Provider Internal Medicine
DX: I50.9 Heart failure, unspecified (principal); E87.6 Hypokalemia; R60.0 Localized edema; J96.21 Acute and chronic respiratory failure with hypoxia
CPT/HCPCS: 36415; 80048; 85025

== ENCOUNTER → 2024-11-09 | Outpatient (REF) | payer MEDICAID, SELFPAY ==
[2024-11-09 09:11] LABS: Absolute Lymphocyte Count 1.26 X10^3/uL (0.83-4.51); Absolute Neutrophil Count 4.8 X10^3/uL (2.0-7.7); Basophil# 0.05 X10^3/uL; Basophil% 0.7 % (0-1); Eosinophil# 0.19 X10^3/uL; Eosinophils% 2.7 % (0-5); Hemoglobin 11.8 g/dL (12.0-15.0); Lymphocyte # 1.26 X10^3/ul (0.83-4.51); Lymphocyte % 18.1 % (19-41); Mean Corp Hgb Conc 31.9 g/dL (32-36); Mean Corpuscular Hgb 30.4 pg (27.0-32.0); Mean Corpuscular Volume 95.4 fL (81-99); Mean Platelet Vol. 11.4 fl (6.2-12.0); Monocyte# 0.68 X10^3/uL; Monocyte% 9.8 % (0-10); NRBC Flagged by Analyzer 0 % (0-5); Neutrophil # 4.75 X10^3/uL (2.7-7.7); Neutrophil % 68.3 % (47-70); Platelet Count 264 K/mm3 (150-450); RBC Distribution Width CV 15.1 % (11.6-14.6); RBC Distribution Width SD 52.3 fl (35.1-43.9); Red Blood Count 3.88 M/mm3 (4.2-5.4)
[2024-11-09 09:25] LABS: Anion Gap 10 (5-15); BUN 16 mg/dL (4-19); Calcium,Total 9.5 mg/dL (7.6-11.0); Carbon Dioxide 30.8 mmol/L (21.0-32.0); Chloride 98 mmol/L (98-108); Creatinine, Serum 0.91 mg/dL (0.70-1.20); EST Glomerular Filtration Rate 77 (>60); Glucose 95 mg/dL (70-99); Potassium 3.9 mmol/L (3.3-5.1); Sodium Level 139 mmol/L (133-145)
== END | disposition home or self-care (01) ==
LOC: OLS.SW 04:00
PROVIDERS: PCP Internal Medicine; Referring Provider Internal Medicine; Visit Provider Internal Medicine
DX: I50.9 Heart failure, unspecified (principal); E87.6 Hypokalemia; J96.21 Acute and chronic respiratory failure with hypoxia
CPT/HCPCS: 36415; 80048; 85025

== ENCOUNTER → 2024-11-23 | Outpatient (REF) | payer MEDICAID, SELFPAY ==
[2024-11-23 09:24] LABS: Absolute Lymphocyte Count 1.22 X10^3/uL (0.83-4.51); Absolute Neutrophil Count 4.6 X10^3/uL (2.0-7.7); Basophil# 0.06 X10^3/uL; Basophil% 0.9 % (0-1); Eosinophil# 0.16 X10^3/uL; Eosinophils% 2.4 % (0-5); Hematocrit 40.4 % (37-47); Lymphocyte # 1.22 X10^3/ul (0.83-4.51); Lymphocyte % 18.2 % (19-41); Mean Corp Hgb Conc 32.2 g/dL (32-36); Mean Corpuscular Hgb 30.4 pg (27.0-32.0); Mean Corpuscular Volume 94.4 fL (81-99); Mean Platelet Vol. 11.2 fl (6.2-12.0); Monocyte# 0.62 X10^3/uL; Monocyte% 9.2 % (0-10); NRBC Flagged by Analyzer 0 % (0-5); Neutrophil % 68.6 % (47-70); Platelet Count 320 K/mm3 (150-450); RBC Distribution Width SD 51.8 fl (35.1-43.9); Red Blood Count 4.28 M/mm3 (4.2-5.4); White Blood Count 6.7 K/mm3 (4.4-11.0)
[2024-11-23 09:48] LABS: Anion Gap 14 (5-15); BUN 16 mg/dL (4-19); BUN/Creat Ratio 19.4 RATIO (10-20); Carbon Dioxide 29.3 mmol/L (21.0-32.0); Chloride 96 mmol/L (98-108); Creatinine, Serum 0.84 mg/dL (0.70-1.20); EST Glomerular Filtration Rate 84 (>60); Glucose 95 mg/dL (70-99); Potassium 3.8 mmol/L (3.3-5.1); Sodium Level 139 mmol/L (133-145)
== END | disposition home or self-care (01) ==
LOC: OLS.SW 04:00
PROVIDERS: PCP Internal Medicine; Referring Provider Internal Medicine; Visit Provider Internal Medicine
DX: J96.21 Acute and chronic respiratory failure with hypoxia (principal)
CPT/HCPCS: 36415; 80048; 85025

== ENCOUNTER → 2024-12-07 | Outpatient (REF) | payer MEDICAID, SELFPAY ==
[2024-12-07 10:07] LABS: Absolute Lymphocyte Count 1.44 X10^3/uL (0.83-4.51); Absolute Neutrophil Count 4.7 X10^3/uL (2.0-7.7); Basophil# 0.05 X10^3/uL; Basophil% 0.7 % (0-1); Eosinophil# 0.18 X10^3/uL; Eosinophils% 2.6 % (0-5); Hematocrit 37.8 % (37-47); Hemoglobin 12.1 g/dL (12.0-15.0); Lymphocyte # 1.44 X10^3/ul (0.83-4.51); Lymphocyte % 20.5 % (19-41); Mean Corpuscular Hgb 30.3 pg (27.0-32.0); Mean Corpuscular Volume 94.7 fL (81-99); Mean Platelet Vol. 10.8 fl (6.2-12.0); Monocyte# 0.56 X10^3/uL; NRBC Flagged by Analyzer 0 % (0-5); Neutrophil # 4.74 X10^3/uL (2.7-7.7); Neutrophil % 67.6 % (47-70); Platelet Count 339 K/mm3 (150-450); RBC Distribution Width CV 14.8 % (11.6-14.6); RBC Distribution Width SD 52.2 fl (35.1-43.9); Red Blood Count 3.99 M/mm3 (4.2-5.4)
[2024-12-07 10:26] LABS: Anion Gap 12 (5-15); BUN 13 mg/dL (4-19); BUN/Creat Ratio 16.7 RATIO (10-20); Calcium,Total 9.5 mg/dL (7.6-11.0); Chloride 99 mmol/L (98-108); EST Glomerular Filtration Rate 89 (>60); Glucose 100 mg/dL (70-99); Potassium 3.8 mmol/L (3.3-5.1); Sodium Level 140 mmol/L (133-145)
== END | disposition home or self-care (01) ==
LOC: OLS.SW 05:00
PROVIDERS: PCP Internal Medicine; Visit Provider Internal Medicine
DX: I50.9 Heart failure, unspecified (principal); R60.0 Localized edema; J96.21 Acute and chronic respiratory failure with hypoxia; E87.6 Hypokalemia
CPT/HCPCS: 36415; 80048; 85025

== ENCOUNTER → 2024-12-22 | Outpatient (REF) | payer MEDICAID, SELFPAY ==
[2024-12-22 08:47] LABS: Vitamin D,25 Hydroxy 29.1 ng/mL (30-100)
== END | disposition home or self-care (01) ==
LOC: OLS.SW 05:00
PROVIDERS: PCP Internal Medicine; Visit Provider Internal Medicine
DX: E55.9 Vitamin D deficiency, unspecified (principal)
CPT/HCPCS: 36415; 82306

== ENCOUNTER → 2025-01-26 | Outpatient (REF) | payer MEDICAID, SELFPAY ==
[2025-01-26 11:12] LABS: Anion Gap 10 (5-15); BUN 31 mg/dL (4-19); BUN/Creat Ratio 33.0 RATIO (10-20); Calcium,Total 9.5 mg/dL (7.6-11.0); Carbon Dioxide 28.6 mmol/L (21.0-32.0); Chloride 99 mmol/L (98-108); Glucose 95 mg/dL (70-99); Potassium 4.5 mmol/L (3.3-5.1)
== END | disposition home or self-care (01) ==
LOC: OLS.SW 05:00
PROVIDERS: PCP Internal Medicine; Visit Provider Family Medicine
DX: I50.9 Heart failure, unspecified (principal); J96.12 Chronic respiratory failure with hypercapnia
CPT/HCPCS: 36415; 80048